=== PATIENT | female | born 1945 | race African-American/Black ===

== ENCOUNTER 2021-03-13 18:36 | Inpatient (IN) | payer BC, MEDICARE ==
[~2021-03-13] VITALS: Ht 161.3 cm; Wt 49.9 kg
[~2021-03-13 18:36] MED LIST: ALPR0.5T6 PO; AMOX1TAB10 PO; BUDE0.5A NEB; GABA600T7 PO; IPRA3AMP29 NEB; OXYC1TAB22 PO; PRED-220 PO; gabapentin PO; percocet; xanax
--- NOTE | 2021-03-13 18:51 | PHYS DOC ---
Past Medical History Past Medical History: Arthritis Past Surgical History: No Surgical History Smoking Status: Current Every Day Smoker Alcohol Use: None General Adult HPI: HPI: Patient is a 75 year old female with past medical history of COPD and neuropathy presents for evaluation of generalized weakness and altered mental status. Patient lives at home with her family. Patient's family called 911 due to patient's generalized weakness and altered mental status. Family states patient has been in bed all day. Upon EMS arrival patient was noted to have an oxygen saturation in the upper 60s. Patient arrived on 15 L nonrebreather with oxygen saturations of 100%. Patient is alert and in oriented to person and place. She is unaware of time and president. Patient has no complaints. She denies headache chest pain shortness of breath abdominal pain nausea vomiting. In ER patient was switched over to 2 L nasal cannula and still remains 100% on room air. During my exam patient does have mild coug but her lungs are clear bilateral and her heart is regular. EMS states patients house was a mess. The temperature in house exceeded 90 degrees. Patients Oxycodone pain medication bottle - filled on 03/09 with #60 tablets has only 3 tablets left. Review of Systems: Review of Systems: Constitutional: Denies fever or chills. [] Eyes: Denies change in visual acuity. [] HENT: Denies nasal congestion or sore throat. [] Respiratory: Denies cough or shortness of breath. [] Cardiovascular: Denies chest pain or edema. [] GI: Denies abdominal pain, nausea, vomiting, bloody stools or diarrhea. [] : Denies dysuria. [] Musculoskeletal: Denies back pain or joint pain. [] Integument: Denies rash. [] Neurologic: Denies headache, focal weakness or sensory changes. [] Endocrine: Denies polyuria or polydipsia. [] Lymphatic: Denies swollen glands. [] Psychiatric: Denies depression or anxiety. [] Patient with no complaints Positive ROS based upon EMS Positive hypoxia Positive generalized weakness Heart Score: C/O Chest Pain: N/A Risk Factors: Risk Factors: DM, Current or recent (<one month) smoker, HTN, HLP, family history of CAD, obesity. Risk Scores: Score 0 - 3: 2.5% MACE over next 6 weeks - Discharge Home Score 4 - 6: 20.3% MACE over next 6 weeks - Admit for Clinical Observation Score 7 - 10: 72.7% MACE over next 6 weeks - Early Invasive Strategies Allergies: Allergies: Allergies Coded Allergies Type Severity Reaction Last Updated Verified No Known Drug Allergies 09/13/19 No Physical Exam: PE: General: alert, no acute distress. Skin: warm, dry and intact, no erythema, no rash. HENT: bilateral external ears normal, oropharynx moist, nose normal. Head:: Normocephalic, atraumatic. Neck: Trachea midline. Eyes: EOMI, Normal conjunctiva, No drainage CARDIOVASCULAR: Regular rate and rhythm RESPIRATORY: No respiratory distress Back: Full range of motion. MUSCULOSKELETAL: Full range of motion of bilateral upper and lower extremities. GASTROINTESTINAL: Abdomen soft without rebound or guarding. NEUROLOGICAL: Alert and noted to person, place not time. No neurological deficits observed Psychiatric: Cooperative. Normal judgment EKG: EKG: [] Performed at 1928 Rate [address] elevation Nonspecific ST depression No acute GA Radiology/Procedures: Radiology/Procedures: [] Impression: Exam: Chest one view INDICATION: Hypoxia TECHNIQUE: Frontal view of the chest Comparisons: 09/21/2019 FINDINGS: The cardiomediastinal silhouette and pulmonary vessels are within normal limits. Extensive bilateral airspace disease greater in the right upper lung. No pleural effusion. IMPRESSION: Extensive bilateral airspace disease. Course & Med Decision Making: Course & Med Decision Making Pertinent Labs and Imaging studies reviewed. (See chart for details) [] Patient was evaluated for chief complaint. Work-up consisted of laboratory analysis radiologic imaging and EKG. Results reviewed. Patient noted to have several abnormal labs including a white blood cell count of 17, sodium of 118, creatinine 4.8, BNP greater than 35,000, and a CK greater than 1500, Patient chest x-ray diffuse bilateral infiltrates. Patient's rapid Covid negative. Treatment included supplemental oxygen NC, IV fluids, Rocephin and Zithromax. Patient admitted to the hospitalist with nephrology consult. Carmelita Disclaimer: Carmelita Disclaimer: This electronic medical record was generated, in whole or in part, using a voice recognition dictation system. Departure Departure Impression: Primary Impression: Pneumonia Additional Impressions: Acute renal failure Hyponatremia Disposition: ADMITTED INPATIENT Admitting Physician: ELIANE Condition: STABLE Referrals: ARAMIS CARLOS MD (PCP) SHREYAS CALLE DO Mar 13, 2021 18:51
[2021-03-13 19:13] LABS: BILIRUBIN,URINE SMALL (NEG); CLARITY,URINE CLOUDY; COLOR,URINE AMBER; NITRITE,URINE NEGATIVE (NEG); PROTEIN,URINE 30 mg/dL (NEG-TRACE); UROBILINOGEN,URINE 0.2 mg/dL (0.2 mg/dL)
[2021-03-13 19:19] LABS: AMORPHOUS SEDIMENT,UR PRESENT /HPF; BACTERIA,URINE 0 /HPF (0-FEW); GRANULAR CASTS,URINE FEW /HPF; HYALINE CASTS, URINE FEW /HPF; RBC,URINE RARE /HPF (0-2); WBC,URINE 0 /HPF (0-4)
[2021-03-13 19:23] LABS: BASO % 0 % (0-3); EOS % 0 % (0-3); HEMATOCRIT 33.7 % (36.0-47.0); HEMOGLOBIN 11.5 g/dL (12.0-15.5); LYMPH # 0.9 x10^3/uL (1.0-4.8); LYMPH % 5 % (24-48); MEAN CORPUSCULAR HEMOGLOBIN 30 pg (25-35); MEAN CORPUSCULAR HGB CONC 34 g/dL (31-37); MEAN CORPUSCULAR VOLUME 89 fL (79-100); MONO # 0.9 x10^3/uL (0.0-1.1); MONO % 5 % (0-9); NEUT # 15.3 x10^3/uL (1.8-7.7); NEUT % 89 % (31-73); PLATELET COUNT 334 x10^3/uL (140-400); RED BLOOD COUNT 3.81 x10^6/uL (3.50-5.40); RED CELL DISTRIBUTION WIDTH 14.4 % (11.5-14.5); WHITE BLOOD COUNT 17.2 x10^3/uL (4.0-11.0)
[2021-03-13 19:38] LABS: ACETAMIN < 2 mcg/ml (10-30)
[2021-03-13 19:41] LABS: ALBUMIN 2.7 g/dL (3.4-5.0); ALBUMIN/GLOBULIN RATIO 0.6 (1.0-1.7); CALCIUM 8.2 mg/dL (8.5-10.1); CREATININE 4.8 mg/dL (0.6-1.0); GFR 10.7; POTASSIUM 4.9 mmol/L (3.5-5.1); TOTAL BILIRUBIN 0.3 mg/dL (0.2-1.0); TOTAL PROTEIN 6.9 g/dL (6.4-8.2)
--- NOTE | 2021-03-13 19:43 | EKG ---
[facility] [address] [place] [address] Test Date: 2021-03-13 Test Time: 19:28:09 Pat Name: JANIYA NOE Department: Room: Gender: F [employer]: [id number] : 1945 Requested By: SHREYAS CALLE Order Number: [id number] Reading MD: Measurements Intervals [place] Rate: 70 P: -59 ND: 138 QRS: 56 QRSD: 100 T: 3 QT: 422 QTc: 459 Interpretive Statements SINUS RHYTHM INDETERMINATE AXIS T ABNORMALITY IN ANTERIOR LEADS NON SPECIFIC ST DEPRESSION ABNORMAL ECG RI6.02 Compared to ECG 03/13/2021 19:26:09 T-wave abnormality now present Right bundle-branch block no longer present ST (T wave) deviation still present
--- NOTE | 2021-03-13 19:47 | RAD ---
Exam: Chest one view INDICATION: Hypoxia TECHNIQUE: Frontal view of the chest Comparisons: 09/21/2019 FINDINGS: The cardiomediastinal silhouette and pulmonary vessels are within normal limits. Extensive bilateral airspace disease greater in the right upper lung. No pleural effusion. IMPRESSION: Extensive bilateral airspace disease. Electronically signed by: Chandrika Cuba MD (03/13/2021 7:45 PM) [facility]
[2021-03-13 19:53] LABS: % BANDS 27 % (0-9); % LYMPHS 7 % (24-48); % MONOS 2 % (0-10); % SEGS 64 % (35-66); PLT ESTIMATE ADEQUATE (ADEQUATE); TOXIC GRANULATION SLIGHT; TOXIC VACUOLATION SLIGHT
[2021-03-13] MEDS ORDERED: ACETAMINOPHEN 325 MG TABLET. PO PRN (20:15)
[2021-03-13] MEDS ORDERED: ONDANSETRON PF 4 MG/2 ML VIAL. IVP PRN (20:15)
[2021-03-13] MEDS ORDERED: IV NORMAL SALINE 1000ML BAG 1,000 ML IV ONE (20:15)
[2021-03-13] MEDS ORDERED: AZITHRMYCN 500MG IVPB FOR OMNI 250 ML IV ONE (20:30)
[2021-03-13] MEDS ORDERED: cefTRIAXone IV Push 1 GM VIAL. IVP ONE (20:30)
[2021-03-13 21:40] VITALS: BP 96/41
[2021-03-14 03:00] VITALS: BP 92/41
[2021-03-14 06:56] VITALS: BP 96/43
[2021-03-14] MEDS ORDERED: SENNOSIDES 8.6 MG TABLET PO PRN (09:00)
[2021-03-14] MEDS ORDERED: ONDANSETRON PF 4 MG/2 ML VIAL. IVP PRN (09:00)
[2021-03-14] MEDS ORDERED: PROCHLORPERAZINE 10 MG/2 ML VIAL. IV PRN (09:00)
[2021-03-14] MEDS ORDERED: DEXTROSE 50% 25 GM / 50ML DISP.SYRIN. IV PRN (09:00)
--- NOTE | 2021-03-14 09:02 | PDOC1 ---
History and Physical Date of Service: DOS: DATE: 03/14/21 TIME: 08:37 Chief Complaint: Chief Complain: Generalized weakness History of Present Illness: HPI: 75 year old female with past medical history of COPD and neuropathy presents for evaluation of generalized weakness and altered mental status. Patient lives at home with her family. Patient's family called 911 due to patient's generalized weakness and altered mental status. Family states patient has been in bed all day. Upon EMS arrival patient was noted to have an oxygen saturation in the upper 60s. Patient arrived on 15 L nonrebreather with oxygen saturations of 100%. Patient is alert and in oriented to person and place. She is unaware of time and president. Patient has no complaints. She denies headache chest pain shortness of breath abdominal pain nausea vomiting. In ER patient was switched over to 2 L nasal cannula and still remains 100% on room air. During my exam patient does have mild coug but her lungs are clear bilateral and her heart is regular. EMS states patients house was a mess. The temperature in house exceeded 90 degrees. Patients Oxycodone pain medication bottle - filled on 03/09 with #60 tablets has only 3 tablets left. Past Medical/Surgical History: PMH/PSH: Past Medical History: Arthritis Past Surgical History: No Surgical History Allergies: Allergies: Coded Allergies: No Known Drug Allergies (Unverified , 03/13/21) Family History: Family History: Reviewed with no relevant findings Social History: Social History: Smoking Status: Current Every Day Smoker Alcohol Use: None Current Medications: Current Medications Current Medications Sodium Chloride 1,000 ml @ 1,000 mls/hr 1X ONCE IV Last administered on 03/13/21at 20:00; Start 03/13/21 at 20:15; Stop 03/13/21 at 21:14; Status DC Ceftriaxone Sodium (Rocephin) 1 gm 1X ONCE IVP Last administered on 03/13/21at 21:16; Start 03/13/21 at 20:30; Stop 03/13/21 at 20:31; Status DC Azithromycin 250 ml @ 250 mls/hr 1X ONCE IV Last administered on 03/13/21at 20:30; Start 03/13/21 at 20:30; Stop 03/13/21 at 21:29; Status DC Ondansetron HCl (Zofran) 4 mg PRN Q8HRS PRN IVP NAUSEA/VOMITING; Start 03/13/21 at 20:15; Stop 03/14/21 at 20:14 Acetaminophen (Tylenol) 650 mg PRN Q4HRS PRN PO FEVER > 100.3'F; Start 03/13/21 at 20:15; Stop 03/14/21 at 20:14 Active Scripts Active Prednisone (Prednisone) 10 Mg Tablet 3 Tab PO DAILY 5 Days Duoneb 0.5-3(2.5) Mg/3 Ml (Albuterol/Ipratropium) 3 Ml Ampul.neb 3 Ml NEB Q4HRS 30 Days Budesonide 0.5 Mg/2 Ml Ampul.neb 0.5 Mg NEB RTBID 30 Days Amox Tr-K Clv 500-125 Mg Tab (Amoxicillin/Potassium Clav) 1 Each Tablet 1 Tab PO BID 5 Days Reported Percocet 10-325 Mg Tablet (Oxycodone/Acetaminophen) 1 Each Tablet 1 Tab PO PRN Q4-6HRS PRN MDD 6 Tablet(s) 5 Days Alprazolam 0.5 Mg Tablet 1 Tab PO DAILY PRN Gabapentin 600 Mg Tablet 600 Mg PO TID ROS: Review of Systems Review of System Unable to obtain due to altered mental status Physical Exam: Vital Signs: Vital Signs Date Time Temp Pulse Resp B/P (MAP) Pulse Ox O2 Delivery O2 Flow Rate FiO2 03/14/21 06:56 98.8 73 16 96/43 (60) 90 Nasal Cannula 4.0 98.8 Physcial Exam: General: Well developed, well nourished, no acute distress, well appearing HEENT: Pupils equally round and reactive to light, EOMI, no discharge, normal conjunctiva Neck: Supple, no nuchal rigidity, no JVD, trachea midline, no tenderness Cardiac: RRR, no murmurs, no gallops, no rubs Chest/Lungs: CTAB, no wheeze, no rhonchi, no crackles Abdomen: soft, non-distended, no guarding, no peritoneal signs, non-tender Back: No tenderness Extremities: no edema, pulses intact, non-tender,capillary refill <3 sec bilateral upper and lower extremities, Neuro: Alert and oriented x 4, no focal deficits, normal speech Labs: Labs: Laboratory Tests Test 03/13/21 17:30 03/13/21 19:00 03/13/21 19:15 03/14/21 04:20 SARS-CoV-2 RNA (SOLE) Negative (Negative) SARS-CoV-2 Antigen (Rapid) Negative (NEGATIVE) Urine Collection Type U cath Urine Color Jeimy Urine Clarity Cloudy Urine pH 5.0 (<5.0-8.0) Urine Specific Nordman 1.020 (1.000-1.030) Urine Protein 30 mg/dL (NEG-TRACE) Urine Glucose (UA) Negative mg/dL (NEG) Urine Ketones (Stick) Negative mg/dL (NEG) Urine Blood Small (NEG) Urine Nitrite Negative (NEG) Urine Bilirubin Small (NEG) Urine Urobilinogen Dipstick 0.2 mg/dL (0.2 mg/dL) Urine Leukocyte Esterase Negative (NEG) Urine RBC Rare /HPF (0-2) Urine WBC 0 /HPF (0-4) Urine Squamous Epithelial Cells Occ /LPF Urine Amorphous Sediment Present /HPF Urine Bacteria 0 /HPF (0-FEW) Urine Hyaline Casts Few /HPF Urine Granular Casts Few /HPF Urine Mucus Mod /LPF White Blood Count 17.2 x10^3/uL (4.0-11.0) Red Blood Count 3.81 x10^6/uL (3.50-5.40) Hemoglobin 11.5 g/dL (12.0-15.5) Hematocrit 33.7 % (36.0-47.0) Mean Corpuscular Volume 89 fL (79-100) Mean Corpuscular Hemoglobin 30 pg (25-35) Mean Corpuscular Hemoglobin Concent 34 g/dL (31-37) Red Cell Distribution Width 14.4 % (11.5-14.5) Platelet Count 334 x10^3/uL (140-400) Neutrophils (%) (Auto) 89 % (31-73) Lymphocytes (%) (Auto) 5 % (24-48) Monocytes (%) (Auto) 5 % (0-9) Eosinophils (%) (Auto) 0 % (0-3) Basophils (%) (Auto) 0 % (0-3) Neutrophils # (Auto) 15.3 x10^3/uL (1.8-7.7) Lymphocytes # (Auto) 0.9 x10^3/uL (1.0-4.8) Monocytes # (Auto) 0.9 x10^3/uL (0.0-1.1) Eosinophils # (Auto) 0.0 x10^3/uL (0.0-0.7) Basophils # (Auto) 0.0 x10^3/uL (0.0-0.2) Segmented Neutrophils % 64 % (35-66) Band Neutrophils % 27 % (0-9) Lymphocytes % 7 % (24-48) Monocytes % 2 % (0-10) Toxic Granulation Slight Toxic Vacuolation Slight Platelet Estimate Adequate (ADEQUATE) Sodium Level 118 mmol/L (136-145) Potassium Level 4.9 mmol/L (3.5-5.1) Chloride Level 81 mmol/L (98-107) Carbon Dioxide Level 28 mmol/L (21-32) Anion Gap 9 (6-14) Blood Urea Nitrogen 76 mg/dL (7-20) Creatinine 4.8 mg/dL (0.6-1.0) Estimated GFR (Cockcroft-Gault) 10.7 BUN/Creatinine Ratio 16 (6-20) Glucose Level 93 mg/dL (70-99) Calcium Level 8.2 mg/dL (8.5-10.1) Total Bilirubin 0.3 mg/dL (0.2-1.0) Aspartate Amino Transf (AST/SGOT) 81 U/L (15-37) Alanine Aminotransferase (ALT/SGPT) 28 U/L (14-59) Alkaline Phosphatase 101 U/L (46-116) Creatine Kinase 1571 U/L (26-192) Troponin I Quantitative 0.049 ng/mL (0.000-0.055) 0.055 ng/mL (0.000-0.055) TD-Dkb-A-Type Natriuretic Peptide > 79093 pg/mL (0-449) Total Protein 6.9 g/dL (6.4-8.2) Albumin 2.7 g/dL (3.4-5.0) Albumin/Globulin Ratio 0.6 (1.0-1.7) Acetaminophen Level < 2 mcg/ml (10-30) Acetaminophen Last Dose Date Unknown Acetaminophen Last Dose Time Unknown Lactic Acid Level 0.5 mmol/L (0.4-2.0) Laboratory Tests Test 03/13/21 17:30 03/13/21 19:00 03/13/21 19:15 03/14/21 04:20 SARS-CoV-2 RNA (SOLE) Negative (Negative) SARS-CoV-2 Antigen (Rapid) Negative (NEGATIVE) Urine Collection Type U cath Urine Color Jeimy Urine Clarity Cloudy Urine pH 5.0 (<5.0-8.0) Urine Specific Nordman 1.020 (1.000-1.030) Urine Protein 30 mg/dL (NEG-TRACE) Urine Glucose (UA) Negative mg/dL (NEG) Urine Ketones (Stick) Negative mg/dL (NEG) Urine Blood Small (NEG) Urine Nitrite Negative (NEG) Urine Bilirubin Small (NEG) Urine Urobilinogen Dipstick 0.2 mg/dL (0.2 mg/dL) Urine Leukocyte Esterase Negative (NEG) Urine RBC Rare /HPF (0-2) Urine WBC 0 /HPF (0-4) Urine Squamous Epithelial Cells Occ /LPF Urine Amorphous Sediment Present /HPF Urine Bacteria 0 /HPF (0-FEW) Urine Hyaline Casts Few /HPF Urine Granular Casts Few /HPF Urine Mucus Mod /LPF White Blood Count 17.2 x10^3/uL (4.0-11.0) Red Blood Count 3.81 x10^6/uL (3.50-5.40) Hemoglobin 11.5 g/dL (12.0-15.5) Hematocrit 33.7 % (36.0-47.0) Mean Corpuscular Volume 89 fL (79-100) Mean Corpuscular Hemoglobin 30 pg (25-35) Mean Corpuscular Hemoglobin Concent 34 g/dL (31-37) Red Cell Distribution Width 14.4 % (11.5-14.5) Platelet Count 334 x10^3/uL (140-400) Neutrophils (%) (Auto) 89 % (31-73) Lymphocytes (%) (Auto) 5 % (24-48) Monocytes (%) (Auto) 5 % (0-9) Eosinophils (%) (Auto) 0 % (0-3) Basophils (%) (Auto) 0 % (0-3) Neutrophils # (Auto) 15.3 x10^3/uL (1.8-7.7) Lymphocytes # (Auto) 0.9 x10^3/uL (1.0-4.8) Monocytes # (Auto) 0.9 x10^3/uL (0.0-1.1) Eosinophils # (Auto) 0.0 x10^3/uL (0.0-0.7) Basophils # (Auto) 0.0 x10^3/uL (0.0-0.2) Segmented Neutrophils % 64 % (35-66) Band Neutrophils % 27 % (0-9) Lymphocytes % 7 % (24-48) Monocytes % 2 % (0-10) Toxic Granulation Slight Toxic Vacuolation Slight Platelet Estimate Adequate (ADEQUATE) Sodium Level 118 mmol/L (136-145) Potassium Level 4.9 mmol/L (3.5-5.1) Chloride Level 81 mmol/L (98-107) Carbon Dioxide Level 28 mmol/L (21-32) Anion Gap 9 (6-14) Blood Urea Nitrogen 76 mg/dL (7-20) Creatinine 4.8 mg/dL (0.6-1.0) Estimated GFR (Cockcroft-Gault) 10.7 BUN/Creatinine Ratio 16 (6-20) Glucose Level 93 mg/dL (70-99) Calcium Level 8.2 mg/dL (8.5-10.1) Total Bilirubin 0.3 mg/dL (0.2-1.0) Aspartate Amino Transf (AST/SGOT) 81 U/L (15-37) Alanine Aminotransferase (ALT/SGPT) 28 U/L (14-59) Alkaline Phosphatase 101 U/L (46-116) Creatine Kinase 1571 U/L (26-192) Troponin I Quantitative 0.049 ng/mL (0.000-0.055) 0.055 ng/mL (0.000-0.055) JZ-Yco-V-Type Natriuretic Peptide > 67413 pg/mL (0-449) Total Protein 6.9 g/dL (6.4-8.2) Albumin 2.7 g/dL (3.4-5.0) Albumin/Globulin Ratio 0.6 (1.0-1.7) Acetaminophen Level < 2 mcg/ml (10-30) Acetaminophen Last Dose Date Unknown Acetaminophen Last Dose Time Unknown Lactic Acid Level 0.5 mmol/L (0.4-2.0) Images: Images PROCEDURE: CHEST AP ONLY Exam: Chest one view INDICATION: Hypoxia TECHNIQUE: Frontal view of the chest Comparisons: 09/21/2019 FINDINGS: The cardiomediastinal silhouette and pulmonary vessels are within normal limits. Extensive bilateral airspace disease greater in the right upper lung. No pleural effusion. IMPRESSION: Extensive bilateral airspace disease. Assessment/Plan Assessment/Plan Acute metabolic and infectious encephalopathy Atypical bilateral pneumonia, possible gram-negative organisms, possible aspiration pneumonia Elevated BNP suggestive of volume overload Acute electrolyte derangementhyponatremia, hypochloremia OBEY due to vasomotor nephropathy Severe symptomatic hyponatremia suggestive of low solute intake Elevated creatinine kinase due to rhabdomyolysis Bedbound status Severe protein malnutrition Elevated AST ALT ratio Admit to hospital service for further management Pending FeNa calculation for volume depletion Pending TSH, B12, folate levels Pending urine toxic drug screen Dementia prevention protocol Continue empiric IV antibiotics Pending blood cultures Pending MRSA screen and Legionella urine antigen Nephrology consult Strict I's and O's Avoid nephrotoxic agents Continue judicious IV NS replacement to increase sodium between 4 to 8 mEq in the next 24 hours Trend creatinine levels for the next 24 hours Monitor urine output PT OT evaluation IV Haldol as needed for agitation, consider sitter as needed if non-redirectable agitation Avoid physical restraints, catheters or tubes, and benzodiazepines Nutrition consult if there is malnutrition or concern for vitamin deficiencies Heparin for DVT prophylaxis N.p.o. if altered mental status Full code Discussed with RN and SW Dispo inpatient management as above In addition to my E/M visit, advance care planning done with A total time of 20 minutes was spent from 1040 to 11:00 face to face in discussion with the patient regarding their goals of care, CODE STATUS. A total of 55 minutes of critical care time was spent in reviewing chart, labs, and images. Discussed with RN and SW. Justifications for Admission Other Justification VANDANA WILLIS MD Mar 14, 2021 09:02
[2021-03-14 09:41] LABS: BASO % 0 % (0-3); EOS % 0 % (0-3); HEMATOCRIT 29.8 % (36.0-47.0); HEMOGLOBIN 10.1 g/dL (12.0-15.5); LYMPH # 1.1 x10^3/uL (1.0-4.8); LYMPH % 8 % (24-48); MEAN CORPUSCULAR HEMOGLOBIN 30 pg (25-35); MEAN CORPUSCULAR HGB CONC 34 g/dL (31-37); MEAN CORPUSCULAR VOLUME 89 fL (79-100); MONO # 0.7 x10^3/uL (0.0-1.1); MONO % 5 % (0-9); NEUT % 87 % (31-73); PLATELET COUNT 340 x10^3/uL (140-400); RED BLOOD COUNT 3.34 x10^6/uL (3.50-5.40); RED CELL DISTRIBUTION WIDTH 14.4 % (11.5-14.5); WHITE BLOOD COUNT 14.9 x10^3/uL (4.0-11.0)
[2021-03-14 09:42] LABS: ALBUMIN 2.3 g/dL (3.4-5.0); ALBUMIN/GLOBULIN RATIO 0.6 (1.0-1.7); CALCIUM 7.3 mg/dL (8.5-10.1); CREATININE 3.6 mg/dL (0.6-1.0); GFR 14.9; PHOSPHORUS 7.8 mg/dL (2.6-4.7); POTASSIUM 4.6 mmol/L (3.5-5.1); TOTAL BILIRUBIN 0.2 mg/dL (0.2-1.0)
[2021-03-14] MEDS: IV NORMAL SALINE 1000ML BAG 1,000 ML IV SCH ×2 (09:46→19:00)
[2021-03-14] MEDS: HEPARIN for SUB-Q USE 5,000 UNIT/ML VIAL. SQ SCH ×2 (09:47→21:23)
[2021-03-14 11:08] VITALS: BP 92/46
--- NOTE | 2021-03-14 11:23 | PDOC2 ---
CONSULT Date of Consult Date of Consult DATE: 03/14/21 TIME: 11:11 Reason for Consult Reason for Consult: LOW NA AND OBEY Referring Physician Referring Physician: ALBA Identification/Chief Complaint Chief Complaint CONFUSION Source Source: Chart review History of Present Illness Reason for Visit: THIS IS A 75 YR OLD WITH CONFUSION AND GENERALIZED WEAKNESS. FAMILY CALL 911. HYPOXIC ON ARRIVAL IN THE ER. ALSO NOTED TO HAVE A NA OF 119 AND A CR OF 4.8. NO CKD HX AND NO PRIOR HX OF ANY LOW NA. NO HX OF ANY REPORTED HX. NO NEPHROTOXINS OR HEMODYNAMIC INSTABILITY. CURRENTLY PUI FOR COVID 19. HAS A HX OF COPD. SHE HAS LEUCOCYTOSIS AND CHEST IMAGING SHOWING BILATERAL INFILTRATES. UA NEG EXCEPT FOR TRACE PROTEINURIA AND HEMATURIA. CPK IS ELEVATED IS BNP Past Medical History Cardiovascular: CHF Pulmonary: COPD ENT: No pertinent hx Renal/: No pertinent hx Family History Family History: Hypertension Social History No ALCOHOL: none Drugs: None Lives: with Family Current Problem List Problem List Problems Medical Problems: (1) Acute renal failure Status: Acute (2) Hyponatremia Status: Acute (3) Pneumonia Status: Acute Current Medications Current Medications Current Medications Sodium Chloride 1,000 ml @ 1,000 mls/hr 1X ONCE IV Last administered on 03/13/21at 20:00; Start 03/13/21 at 20:15; Stop 03/13/21 at 21:14; Status DC Ceftriaxone Sodium (Rocephin) 1 gm 1X ONCE IVP Last administered on 03/13/21at 21:16; Start 03/13/21 at 20:30; Stop 03/13/21 at 20:31; Status DC Azithromycin 250 ml @ 250 mls/hr 1X ONCE IV Last administered on 03/13/21at 20:30; Start 03/13/21 at 20:30; Stop 03/13/21 at 21:29; Status DC Ondansetron HCl (Zofran) 4 mg PRN Q8HRS PRN IVP NAUSEA/VOMITING; Start 03/13/21 at 20:15; Stop 03/14/21 at 20:14 Acetaminophen (Tylenol) 650 mg PRN Q4HRS PRN PO FEVER > 100.3'F; Start 03/13/21 at 20:15; Stop 03/14/21 at 20:14 Sennosides (Senna) 17.2 mg PRN BID PRN PO CONSTIPATION; Start 03/14/21 at 09:00 Docusate Sodium (Colace) 100 mg PRN DAILY PRN PO HARD STOOLS; Start 03/14/21 at 09:00 Ondansetron HCl (Zofran) 4 mg PRN Q6HRS PRN IVP NAUSEA/VOMITING; Start 03/14/21 at 09:00 Dextrose (Dextrose 50%-Water Syringe) 12.5 gm PRN Q15MIN PRN IV SEE COMMENTS; Start 03/14/21 at 09:00 Sodium Chloride 1,000 ml @ 100 mls/hr Q10H IV Last administered on 03/14/21at 09:46; Start 03/14/21 at 09:00 Acetaminophen (Tylenol) 650 mg PRN Q4HRS PRN PO TEMP OVER 100.4F OR MILD PAIN; Start 03/14/21 at 09:00 Heparin Sodium (Porcine) (Heparin Sodium) 5,000 unit Q12HR SQ Last administered on 03/14/21at 09:47; Start 03/14/21 at 09:00 Azithromycin 500 mg/Sodium Chloride 250 ml @ 250 mls/hr Q24H IV ; Start 03/14/21 at 20:00 Ceftriaxone Sodium (Rocephin) 1 gm Q24H IVP ; Start 03/14/21 at 21:00 Prochlorperazine Edisylate (Compazine) 10 mg PRN Q6HRS PRN IV NAUSEA/VOMITING- 2ND CHOICE; Start 03/14/21 at 09:00 Active Scripts Active Prednisone (Prednisone) 10 Mg Tablet 3 Tab PO DAILY 5 Days Duoneb 0.5-3(2.5) Mg/3 Ml (Albuterol/Ipratropium) 3 Ml Ampul.neb 3 Ml NEB Q4HRS 30 Days Budesonide 0.5 Mg/2 Ml Ampul.neb 0.5 Mg NEB RTBID 30 Days Amox Tr-K Clv 500-125 Mg Tab (Amoxicillin/Potassium Clav) 1 Each Tablet 1 Tab PO BID 5 Days Reported Percocet 10-325 Mg Tablet (Oxycodone/Acetaminophen) 1 Each Tablet 1 Tab PO PRN Q4-6HRS PRN MDD 6 Tablet(s) 5 Days Alprazolam 0.5 Mg Tablet 1 Tab PO DAILY PRN Gabapentin 600 Mg Tablet 600 Mg PO TID Allergies Allergies: Coded Allergies: No Known Drug Allergies (Unverified , 03/13/21) ROS Review of System UNABLE TO OBTAIN DUE TO CONFUSION Physical Exam General: Alert, Cooperative, mild distress HEENT: Atraumatic, PERRLA Lungs: Other (DECREASD AT BASES) Heart: Regular rate Abdomen: Normal bowel sounds, Soft, No tenderness Extremities: No cyanosis Skin: No breakdown Neuro: Other (CONFUSED, NO ASYMMETRY) Psych/Mental Status: Other (CONFUSED, FLAT AFFECT) MUSCULOSKELETAL: No joint tenderness, No deformity Vitals VITALS Vital Signs Date Time Temp Pulse Resp B/P (MAP) Pulse Ox O2 Delivery O2 Flow Rate FiO2 03/14/21 11:08 98.6 75 18 92/46 (61) 95 Nasal Cannula 4.0 98.6 Labs Labs Laboratory Tests Test 03/13/21 17:30 03/13/21 19:00 03/13/21 19:15 03/14/21 04:20 SARS-CoV-2 RNA (SOLE) Negative (Negative) SARS-CoV-2 Antigen (Rapid) Negative (NEGATIVE) Urine Collection Type U cath Urine Color Jeimy Urine Clarity Cloudy Urine pH 5.0 (<5.0-8.0) Urine Specific [place] 1.020 (1.000-1.030) Urine Protein 30 mg/dL (NEG-TRACE) Urine Glucose (UA) Negative mg/dL (NEG) Urine Ketones (Stick) Negative mg/dL (NEG) Urine Blood Small (NEG) Urine Nitrite Negative (NEG) Urine Bilirubin Small (NEG) Urine Urobilinogen Dipstick 0.2 mg/dL (0.2 mg/dL) Urine Leukocyte Esterase Negative (NEG) Urine RBC Rare /HPF (0-2) Urine WBC 0 /HPF (0-4) Urine Squamous Epithelial Cells Occ /LPF Urine Amorphous Sediment Present /HPF Urine Bacteria 0 /HPF (0-FEW) Urine Hyaline Casts Few /HPF Urine Granular Casts Few /HPF Urine Mucus Mod /LPF White Blood Count 17.2 x10^3/uL (4.0-11.0) 14.9 x10^3/uL (4.0-11.0) Red Blood Count 3.81 x10^6/uL (3.50-5.40) 3.34 x10^6/uL (3.50-5.40) Hemoglobin 11.5 g/dL (12.0-15.5) 10.1 g/dL (12.0-15.5) Hematocrit 33.7 % (36.0-47.0) 29.8 % (36.0-47.0) Mean Corpuscular Volume 89 fL (79-100) 89 fL (79-100) Mean Corpuscular Hemoglobin 30 pg (25-35) 30 pg (25-35) Mean Corpuscular Hemoglobin Concent 34 g/dL (31-37) 34 g/dL (31-37) Red Cell Distribution Width 14.4 % (11.5-14.5) 14.4 % (11.5-14.5) Platelet Count 334 x10^3/uL (140-400) 340 x10^3/uL (140-400) Neutrophils (%) (Auto) 89 % (31-73) 87 % (31-73) Lymphocytes (%) (Auto) 5 % (24-48) 8 % (24-48) Monocytes (%) (Auto) 5 % (0-9) 5 % (0-9) Eosinophils (%) (Auto) 0 % (0-3) 0 % (0-3) Basophils (%) (Auto) 0 % (0-3) 0 % (0-3) Neutrophils # (Auto) 15.3 x10^3/uL (1.8-7.7) 13.0 x10^3/uL (1.8-7.7) Lymphocytes # (Auto) 0.9 x10^3/uL (1.0-4.8) 1.1 x10^3/uL (1.0-4.8) Monocytes # (Auto) 0.9 x10^3/uL (0.0-1.1) 0.7 x10^3/uL (0.0-1.1) Eosinophils # (Auto) 0.0 x10^3/uL (0.0-0.7) 0.0 x10^3/uL (0.0-0.7) Basophils # (Auto) 0.0 x10^3/uL (0.0-0.2) 0.0 x10^3/uL (0.0-0.2) Segmented Neutrophils % 64 % (35-66) Band Neutrophils % 27 % (0-9) Lymphocytes % 7 % (24-48) Monocytes % 2 % (0-10) Toxic Granulation Slight Toxic Vacuolation Slight Platelet Estimate Adequate (ADEQUATE) Sodium Level 118 mmol/L (136-145) 121 mmol/L (136-145) Potassium Level 4.9 mmol/L (3.5-5.1) 4.6 mmol/L (3.5-5.1) Chloride Level 81 mmol/L (98-107) 86 mmol/L (98-107) Carbon Dioxide Level 28 mmol/L (21-32) 23 mmol/L (21-32) Anion Gap 9 (6-14) 12 (6-14) Blood Urea Nitrogen 76 mg/dL (7-20) 73 mg/dL (7-20) Creatinine 4.8 mg/dL (0.6-1.0) 3.6 mg/dL (0.6-1.0) Estimated GFR (Cockcroft-Gault) 10.7 14.9 BUN/Creatinine Ratio 16 (6-20) 20 (6-20) Glucose Level 93 mg/dL (70-99) 60 mg/dL (70-99) Calcium Level 8.2 mg/dL (8.5-10.1) 7.3 mg/dL (8.5-10.1) Total Bilirubin 0.3 mg/dL (0.2-1.0) 0.2 mg/dL (0.2-1.0) Aspartate Amino Transf (AST/SGOT) 81 U/L (15-37) 70 U/L (15-37) Alanine Aminotransferase (ALT/SGPT) 28 U/L (14-59) 24 U/L (14-59) Alkaline Phosphatase 101 U/L (46-116) 87 U/L (46-116) Creatine Kinase 1571 U/L (26-192) Troponin I Quantitative 0.049 ng/mL (0.000-0.055) 0.055 ng/mL (0.000-0.055) QU-Ksv-[id number]-Type Natriuretic Peptide > 20535 pg/mL (0-449) Total Protein 6.9 g/dL (6.4-8.2) 6.0 g/dL (6.4-8.2) Albumin 2.7 g/dL (3.4-5.0) 2.3 g/dL (3.4-5.0) Albumin/Globulin Ratio 0.6 (1.0-1.7) 0.6 (1.0-1.7) Acetaminophen Level < 2 mcg/ml (10-30) Acetaminophen Last Dose Date Unknown Acetaminophen Last Dose Time Unknown Lactic Acid Level 0.5 mmol/L (0.4-2.0) Phosphorus Level 7.8 mg/dL (2.6-4.7) Magnesium Level 3.0 mg/dL (1.8-2.4) Thyroid Stimulating Hormone (TSH) 0.268 uIU/mL (0.358-3.74) Laboratory Tests Test 03/13/21 17:30 03/13/21 19:00 03/13/21 19:15 03/14/21 04:20 SARS-CoV-2 RNA (SOLE) Negative (Negative) SARS-CoV-2 Antigen (Rapid) Negative (NEGATIVE) Urine Collection Type U cath Urine Color Jeimy Urine Clarity Cloudy Urine pH 5.0 (<5.0-8.0) Urine Specific [place] 1.020 (1.000-1.030) Urine Protein 30 mg/dL (NEG-TRACE) Urine Glucose (UA) Negative mg/dL (NEG) Urine Ketones (Stick) Negative mg/dL (NEG) Urine Blood Small (NEG) Urine Nitrite Negative (NEG) Urine Bilirubin Small (NEG) Urine Urobilinogen Dipstick 0.2 mg/dL (0.2 mg/dL) Urine Leukocyte Esterase Negative (NEG) Urine RBC Rare /HPF (0-2) Urine WBC 0 /HPF (0-4) Urine Squamous Epithelial Cells Occ /LPF Urine Amorphous Sediment Present /HPF Urine Bacteria 0 /HPF (0-FEW) Urine Hyaline Casts Few /HPF Urine Granular Casts Few /HPF Urine Mucus Mod /LPF White Blood Count 17.2 x10^3/uL (4.0-11.0) 14.9 x10^3/uL (4.0-11.0) Red Blood Count 3.81 x10^6/uL (3.50-5.40) 3.34 x10^6/uL (3.50-5.40) Hemoglobin 11.5 g/dL (12.0-15.5) 10.1 g/dL (12.0-15.5) Hematocrit 33.7 % (36.0-47.0) 29.8 % (36.0-47.0) Mean Corpuscular Volume 89 fL (79-100) 89 fL (79-100) Mean Corpuscular Hemoglobin 30 pg (25-35) 30 pg (25-35) Mean Corpuscular Hemoglobin Concent 34 g/dL (31-37) 34 g/dL (31-37) Red Cell Distribution Width 14.4 % (11.5-14.5) 14.4 % (11.5-14.5) Platelet Count 334 x10^3/uL (140-400) 340 x10^3/uL (140-400) Neutrophils (%) (Auto) 89 % (31-73) 87 % (31-73) Lymphocytes (%) (Auto) 5 % (24-48) 8 % (24-48) Monocytes (%) (Auto) 5 % (0-9) 5 % (0-9) Eosinophils (%) (Auto) 0 % (0-3) 0 % (0-3) Basophils (%) (Auto) 0 % (0-3) 0 % (0-3) Neutrophils # (Auto) 15.3 x10^3/uL (1.8-7.7) 13.0 x10^3/uL (1.8-7.7) Lymphocytes # (Auto) 0.9 x10^3/uL (1.0-4.8) 1.1 x10^3/uL (1.0-4.8) Monocytes # (Auto) 0.9 x10^3/uL (0.0-1.1) 0.7 x10^3/uL (0.0-1.1) Eosinophils # (Auto) 0.0 x10^3/uL (0.0-0.7) 0.0 x10^3/uL (0.0-0.7) Basophils # (Auto) 0.0 x10^3/uL (0.0-0.2) 0.0 x10^3/uL (0.0-0.2) Segmented Neutrophils % 64 % (35-66) Band Neutrophils % 27 % (0-9) Lymphocytes % 7 % (24-48) Monocytes % 2 % (0-10) Toxic Granulation Slight Toxic Vacuolation Slight Platelet Estimate Adequate (ADEQUATE) Sodium Level 118 mmol/L (136-145) 121 mmol/L (136-145) Potassium Level 4.9 mmol/L (3.5-5.1) 4.6 mmol/L (3.5-5.1) Chloride Level 81 mmol/L (98-107) 86 mmol/L (98-107) Carbon Dioxide Level 28 mmol/L (21-32) 23 mmol/L (21-32) Anion Gap 9 (6-14) 12 (6-14) Blood Urea Nitrogen 76 mg/dL (7-20) 73 mg/dL (7-20) Creatinine 4.8 mg/dL (0.6-1.0) 3.6 mg/dL (0.6-1.0) Estimated GFR (Cockcroft-Gault) 10.7 14.9 BUN/Creatinine Ratio 16 (6-20) 20 (6-20) Glucose Level 93 mg/dL (70-99) 60 mg/dL (70-99) Calcium Level 8.2 mg/dL (8.5-10.1) 7.3 mg/dL (8.5-10.1) Total Bilirubin 0.3 mg/dL (0.2-1.0) 0.2 mg/dL (0.2-1.0) Aspartate Amino Transf (AST/SGOT) 81 U/L (15-37) 70 U/L (15-37) Alanine Aminotransferase (ALT/SGPT) 28 U/L (14-59) 24 U/L (14-59) Alkaline Phosphatase 101 U/L (46-116) 87 U/L (46-116) Creatine Kinase 1571 U/L (26-192) Troponin I Quantitative 0.049 ng/mL (0.000-0.055) 0.055 ng/mL (0.000-0.055) KJ-Kxg-M-Type Natriuretic Peptide > 63169 pg/mL (0-449) Total Protein 6.9 g/dL (6.4-8.2) 6.0 g/dL (6.4-8.2) Albumin 2.7 g/dL (3.4-5.0) 2.3 g/dL (3.4-5.0) Albumin/Globulin Ratio 0.6 (1.0-1.7) 0.6 (1.0-1.7) Acetaminophen Level < 2 mcg/ml (10-30) Acetaminophen Last Dose Date Unknown Acetaminophen Last Dose Time Unknown Lactic Acid Level 0.5 mmol/L (0.4-2.0) Phosphorus Level 7.8 mg/dL (2.6-4.7) Magnesium Level 3.0 mg/dL (1.8-2.4) Thyroid Stimulating Hormone (TSH) 0.268 uIU/mL (0.358-3.74) Images Images Exam: Chest one view INDICATION: Hypoxia TECHNIQUE: Frontal view of the chest Comparisons: 09/21/2019 FINDINGS: The cardiomediastinal silhouette and pulmonary vessels are within normal limits. Extensive bilateral airspace disease greater in the right upper lung. No pleural effusion. IMPRESSION: Extensive bilateral airspace disease. 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
[2021-03-14 13:07] LABS: BARBITURATES NEG (NEG); BENZODIAZEPINES NEG (NEG); CANNABINOIDS NEG (NEG); COCAINE NEG (NEG); METHADONE NEG (NEG); OPIATES POS (NEG); PHENCYCLIDINE NEG (NEG)
[2021-03-14 13:08] LABS: AMPHETAMINE/METHAMPHETAMINE NEG (NEG)
--- NOTE | 2021-03-14 14:30 | RAD ---
EXAM: RENAL ULTRASOUND CLINICAL HISTORY: Acute kidney injury COMPARISON: None available. TECHNIQUE: Ultrasound examination of the bilateral kidneys and urinary bladder was performed. FINDINGS: The longitudinal and AP and transverse dimensions of the right kidney are 9.2 cm and 4.2 cm and 3.9 c m respectively. There is a cyst of the upper pole of the right kidney measuring 14 mm. This is an inc idental finding and no further follow-up is needed. The longitudinal and AP and transverse dimensions of the left kidney are 9.1 cm and 4.2 cm and 3.8 cm respectively. No hydronephrosis or renal mass or perinephric fluid collection is seen on either side. Urinary bladder is distended measuring 356 cc. No intraluminal echodensities or masses are seen. IMPRESSION: No hydronephrosis. Urinary bladder distention. Electronically signed by: Sean Atkins MD (03/14/2021 2:27 PM) [id number]
[2021-03-14 15:00] VITALS: BP 91/42
[2021-03-14 19:00] VITALS: BP 102/49
[2021-03-14] MEDS: AZITHROMYCIN 500 MG in IV NORMAL SALINE 250ML 250 ML IV SCH (21:24)
[2021-03-14] MEDS: cefTRIAXone IV Push 1 GM VIAL. IVP SCH (21:25)
[2021-03-14] MEDS: oxyCODONE/APAP 10/325 1 TAB TABLET PO PRN (21:32)
[2021-03-14 23:00] VITALS: BP 90/43
[2021-03-15 03:06] VITALS: BP 115/50
[2021-03-15 05:37] LABS: CALCIUM 7.8 mg/dL (8.5-10.1); CREATININE 1.5 mg/dL (0.6-1.0); MAGNESIUM 2.6 mg/dL (1.8-2.4); PHOSPHORUS 3.5 mg/dL (2.6-4.7); POTASSIUM 4.3 mmol/L (3.5-5.1)
[2021-03-15 06:34] VITALS: BP 107/43
[2021-03-15] MEDS: IV NORMAL SALINE 1000ML BAG 1,000 ML IV SCH ×2 (06:36→20:47)
[2021-03-15] MEDS: HEPARIN for SUB-Q USE 5,000 UNIT/ML VIAL. SQ SCH ×2 (09:46→21:03)
[2021-03-15] MEDS: oxyCODONE/APAP 10/325 1 TAB TABLET PO PRN ×2 (09:54→17:10)
--- NOTE | 2021-03-15 10:31 | PDOC ---
Renal-Progress Notes Subjective Notes Notes SOME CONFUSION History of Present Illness Hx of present illness STABLE Vitals Vitals Vital Signs Date Time Temp Pulse Resp B/P (MAP) Pulse Ox O2 Delivery O2 Flow Rate FiO2 03/15/21 09:54 Nasal Cannula 4.0 03/15/21 06:34 97.8 52 20 107/43 (64) 92 97.8 Weight Weight [ ] I.O. Intake and Output Intake and Output 03/15/21 07:00 Intake Total 470 ml Output Total 1300 ml Balance -830 ml Intake Oral 470 ml Output Urine Total 1300 ml # Voids 1 Labs Labs Laboratory Tests Test 03/14/21 12:30 03/14/21 12:35 03/14/21 16:15 03/14/21 19:45 Sodium Level 124 mmol/L (136-145) 128 mmol/L (136-145) 129 mmol/L (136-145) Creatine Kinase 1595 U/L (26-192) 1309 U/L (26-192) Vitamin B12 Level > 2000 pg/mL (247-911) 25-Hydroxy Vitamin D Total 45.3 ng/mL (30-100) Procalcitonin ng/mL (0.00-0.10) Urine Random Creatinine 89.9 mg/dL (Not Establ.) Urine Random Sodium <20 mmol/L (Not Estab.) Urine Opiates Screen Pos (NEG) Urine Methadone Screen Neg (NEG) Urine Barbiturates Neg (NEG) Urine Phencyclidine Screen Neg (NEG) Urine Amphetamine/Methamphetamine Neg (NEG) Urine Benzodiazepines Screen Neg (NEG) Urine Cocaine Screen Neg (NEG) Urine Cannabinoids Screen Neg (NEG) Urine Ethyl Alcohol Neg (NEG) Test 03/14/21 23:50 03/15/21 00:20 03/15/21 04:30 03/15/21 06:10 Sodium Level 129 mmol/L (136-145) 134 mmol/L (136-145) Creatine Kinase 1042 U/L (26-192) 972 U/L (26-192) Potassium Level 4.3 mmol/L (3.5-5.1) Chloride Level 97 mmol/L (98-107) Carbon Dioxide Level 25 mmol/L (21-32) Anion Gap 12 (6-14) Blood Urea Nitrogen 49 mg/dL (7-20) Creatinine 1.5 mg/dL (0.6-1.0) Estimated GFR (Cockcroft-Gault) 41.0 Glucose Level 74 mg/dL (70-99) Calcium Level 7.8 mg/dL (8.5-10.1) Phosphorus Level 3.5 mg/dL (2.6-4.7) Magnesium Level 2.6 mg/dL (1.8-2.4) Micro Micro Microbiology 03/14/21 Blood Culture - Preliminary, Resulted NO GROWTH AFTER 1 DAY Review of Systems Constitutional: yes: weakness, alert Ears/Nose/Throat: Yes: no symptom reported Eyes: Yes: no symptom reported Pulmonary: Yes no symptom reported Cardiovascular: Yes no symptom reported Gastrointestional: Yes: no symptom reported Genitourinary: Yes: no symptom reported Musculoskeletal: Yes: no symptom reported Skin: Yes no symptom reported Psychiatric/Neurological: Yes: confusion Endocrine: Yes: no symptom reported Physical Exam General Appearance: no apparent distress Skin: warm Respiratory: bilateral CTA Heart: S1S2 Abdomen: soft, bowel sounds present Genitourinary: bladder flat Extremities: pulses present Neurology: alert, confused Assessment Assessment IMP ENCEPHALOPATHY SEVERE HYPONATREMIA-NEARLY RESOLVED LEUCOCYTOSIS PNEUMONIA ACUTE HYPOXIC RESP FAILURE OBEY-ATN-CR OF 4.8-NO CKD-CR DOWN TO 1.5 URINARY RETENTION SUSPECT VOLUME DEPLETION CHRONICALLY ELEVATED BNP 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
[2021-03-15 11:30] VITALS: BP 98/50
--- NOTE | 2021-03-15 11:45 | PDOC ---
PROGRESS NOTES Date of Service: DATE: 03/15/21 TIME: 11:44 Chief Complaint Chief Complaint IMPRESSION: Extensive bilateral airspace disease. Assessment/Plan Assessment/Plan Acute metabolic and infectious encephalopathy Atypical bilateral pneumonia, possible gram-negative organisms, possible aspiration pneumonia /Extensive bilateral airspace disease. Elevated BNP suggestive of volume overload Acute electrolyte derangementhyponatremia, hypochloremia OBEY due to vasomotor nephropathy CR 4.8 ON ADMIT Severe symptomatic hyponatremia suggestive of low solute intake Elevated creatinine kinase due to rhabdomyolysis Bedbound status Severe protein malnutrition Elevated AST ALT ratio No hydronephrosis. Urinary bladder distention. plan Admit to hospital service Pending FeNa calculation for volume depletion Pending TSH, B12, folate levels urine toxic drug screen Dementia prevention protocol Continue empiric IV antibiotics Pending blood cultures Pending MRSA screen and Legionella urine antigen Nephrology consult Strict I's and O's Avoid nephrotoxic agents Continue judicious IV NS replacement to increase sodium between 4 to 8 mEq in the next 24 hours Trend creatinine levels for the next 24 hours Monitor urine output PT OT evaluation IV Haldol as needed for agitation, consider sitter as needed if non-redirectable agitation Avoid physical restraints, catheters or tubes, and benzodiazepines Nutrition consult if there is malnutrition or concern for vitamin deficiencies Diffuse pulmonary opacities, predominantly interstitial, likely due to a combination of chronic fibrosis and interstitial infiltrate, greatest at the lung bases. Some opacities have a slightly nodular morphology. short-term CT chest follow-up to document resolution. Calcified mass in the upper pole the right kidney, recommend further workup such as with MRI of the kidneys or multiphase CT of the kidneys. Heparin for DVT prophylaxis N.p.o. if altered mental status Full code Discussed with RN and SW Dispo inpatient management as above pulm consult History of Present Illness History of Present Illness Chief Complaint: Chief Complain: Generalized weakness History of Present Illness: HPI: 75 year old female with past medical history of COPD and neuropathy presents for evaluation of generalized weakness and altered mental status. Patient lives at home with her family. Patient's family called 911 due to patient's generalized weakness and altered mental status. Family states patient has been in bed all day. Upon EMS arrival patient was noted to have an oxygen saturation in the upper 60s. Patient arrived on 15 L nonrebreather with oxygen saturations of 100%. Patient is alert and in oriented to person and place. She is unaware of time and president. Patient has no complaints. She denies headache chest pain shortness of breath abdominal pain nausea vomiting. In ER patient was switched over to 2 L nasal cannula and still remains 100% on room air. During my exam patient does have mild coug but her lungs are clear bilateral and her heart is regular. EMS states patients house was a mess. The temperature in house exceeded 90 degrees. Patients Oxycodone pain medication bottle - filled on 03/09 with #60 tablets has only 3 tablets left. Past Medical/Surgical History: PMH/PSH: Past Medical History: Arthritis Past Surgical History: No Surgical History Allergies: Allergies: Coded Allergies: No Known Drug Allergies (Unverified , 03/13/21) Family History: Family History: Reviewed with no relevant findings Social History: Social History: Smoking Status: Current Every Day Smoker Alcohol Use: None Current Medications: Current Medications Current Medications Sodium Chloride 1,000 ml @ 1,000 mls/hr 1X ONCE IV Last administered on 03/13/21at 20:00; Start 03/13/21 at 20:15; Stop 03/13/21 at 21:14; Status DC Ceftriaxone Sodium (Rocephin) 1 gm 1X ONCE IVP Last administered on 03/13/21at 21:16; Start 03/13/21 at 20:30; Stop 03/13/21 at 20:31; Status DC Azithromycin 250 ml @ 250 mls/hr 1X ONCE IV Last administered on 03/13/21at 20:30; Start 03/13/21 at 20:30; Stop 03/13/21 at 21:29; Status DC Ondansetron HCl (Zofran) 4 mg PRN Q8HRS PRN IVP NAUSEA/VOMITING; Start 03/13/21 at 20:15; Stop 03/14/21 at 20:14 Acetaminophen (Tylenol) 650 mg PRN Q4HRS PRN PO FEVER > 100.3'F; Start 03/13/21 at 20:15; Stop 03/14/21 at 20:14 Active Scripts Active Prednisone (Prednisone) 10 Mg Tablet 3 Tab PO DAILY 5 Days Duoneb 0.5-3(2.5) Mg/3 Ml (Albuterol/Ipratropium) 3 Ml Ampul.neb 3 Ml NEB Q4HRS 30 Days Budesonide 0.5 Mg/2 Ml Ampul.neb 0.5 Mg NEB RTBID 30 Days Amox Tr-K Clv 500-125 Mg Tab (Amoxicillin/Potassium Clav) 1 Each Tablet 1 Tab PO BID 5 Days Reported Percocet 10-325 Mg Tablet (Oxycodone/Acetaminophen) 1 Each Tablet 1 Tab PO PRN Q4-6HRS PRN MDD 6 Tablet(s) 5 Days Alprazolam 0.5 Mg Tablet 1 Tab PO DAILY PRN Gabapentin 600 Mg Tablet 600 Mg PO TID ROS: Review of Systems Review of System Unable to obtain due to altered mental status 8-16 Acute metabolic and infectious encephalopathy Atypical bilateral pneumonia, possible gram-negative organisms, possible aspiration pneumonia /Extensive bilateral airspace disease. Elevated BNP suggestive of volume overload Acute electrolyte derangementhyponatremia, hypochloremia OBEY due to vasomotor nephropathy Severe symptomatic hyponatremia suggestive of low solute intake Elevated creatinine kinase due to rhabdomyolysis Bedbound status Severe protein malnutrition Elevated AST ALT ratio No hydronephrosis. Urinary bladder distention.FeNa calculation for volume depletion TSH, B12, folate levels Pending urine toxic drug screen Dementia prevention protocol Continue empiric IV antibiotics, zithromax, rocephin for now Pending blood cultures MRSA screen and Legionella urine antigen Nephrology consult Strict I's and O's Avoid nephrotoxic agents Continue judicious IV NS replacement to increase sodium between 4 to 8 mEq in the next 24 hours Trend creatinine levels for the next 24 hours Monitor urine output PT OT evaluation Mild to moderate chronic small vessel ischemic changes and atrophy. IV Haldol as needed for agitation, consider sitter as needed if non- redirectable agitation Avoid physical restraints, catheters or tubes, and benzodiazepines Nutrition consult if there is malnutrition or concern for vitamin deficiencies Diffuse pulmonary opacities, predominantly interstitial, likely due to a combination of chronic fibrosis and interstitial infiltrate, greatest at the lung bases. Some opacities have a slightly nodular morphology. short-term CT chest follow-up to document resolution. Calcified mass in the upper pole the right kidney, recommend further workup such as with MRI of the kidneys or multiphase CT of the kidneys. Heparin for DVT prophylaxis N.p.o. if altered mental status Full code Discussed with RN and SW Dispo inpatient management as above pulm consult, 4 liters o2 NC Oral residue is identified with puree and more so with solid forms of barium. This however clears with liquid barium. VIDEOSWALLOW IN AUG 2020 Vitals Vitals Vital Signs Date Time Temp Pulse Resp B/P (MAP) Pulse Ox O2 Delivery O2 Flow Rate FiO2 03/15/21 09:54 Nasal Cannula 4.0 03/15/21 06:34 97.8 52 20 107/43 (64) 92 97.8 Physical Exam General: Alert, Oriented X3, Cooperative, mild distress Heart: Regular rate, Normal S1, Normal S2 Lungs: Other Abdomen: Normal bowel sounds, Soft, No tenderness Extremities: No clubbing, No cyanosis Skin: No breakdown Labs LABS It helps to think and talk about your own wishes for healthcare in case youre ever not able to tell your loved ones or healthcare team what your wishes are. If you became really sick tomorrow, would your loved ones or healthcare team know what your wishes were? Here are some examples of different sets of goals and health care directives for your conversations: My wish is to use all medical therapies including resuscitation (such as CPR) and artificial life- sustaining treatments (such as machines and medicine) in an intensive care unit, to keep me alive if at all possible. My wish is to live as long as possible, but I dont want attempts to bring me back to life if my heart and breathing sto p. I would like full medical care but without using resuscitation or artificial life-sustaining intensive treatments, if these are unlikely to make me live longer or restore me to a certain quality of life. I will accept treatments that try to fix medical problems, but if Im not getting better or going to have a certain quality of life, I would want to switch to focusing only on my comfort and letting my happen naturally. My wish is for healthcare to focus on my comfort and lessen suffering. I would like medical care that focuses only on my quality of life and that allows me to naturally. Consider: What does a good quality of life mean for me? For many people, it is the ability to live independently and tell their own story. I may define it differently. Under what circumstances would I not want to be kept alive by medical treatments, resuscitation, or intensive care? What kind of changes to my health or life might make me change my mind? If I clearly am facing the last chapter of my l lico, how do I want the story to end? Who do I want to speak for me if I cant speak for myself? Do they understand my preferences? Are they willing to assume the role of my Durable Power of [employer] Production? Can I change my Goals of Care Designation? Yes, your Goals of Care Designation can be changed at any time. It should be reviewed if: your health condition changes your circumstances change (such as new understanding) you are transferred or admitted to another healthcare setting dpoa review, to pt portal 17 min and question review EC #: [id number] FRANCY: 03/14/21 STATUS: RES REQ #: [id number] RECD: 03/14/[address]: SHREYAS CALLE I DO SOURCE: BLOOD ENTR: 03/14/[address]: RODOLFO MCFARLANE MD SPDESC: ARAMIS CARLOS MD,VANDANA Bowles MD ORDERED: BCULT Procedure Result BLOOD CULTURE Preliminary NO GROWTH AFTER 1 DAY Aortic Valve AoV Peak Pantera. 104.0cm/s AoV VTI 15.7cm AO Peak GR. 4.3mmHg LVOT VTI 14.73cm AO Mean GR. 2mmHg TDI Lateral E' P. V 8.62cm/s Medial E' P. V 6.69cm/s Tricuspid Valve TR P. Velocity 285cm/s RAP ESTIMATE 3mmHg TR Peak Gr. 34mmHg RVSP 37mmHg Pulmonary Vein S1 Velocity 71.7cm/s S2 Velocity 57.67cm/s D2 Velocity 57.7cm/s PVa duration 92msec LEFT VENTRICLE The left ventricle is normal size. There is normal left ventricular wall thickness. The left ventricular systolic function is normal and the ejection fraction is within normal range. The Ejection Fraction is 50-55%. There is normal LV segmental wall motion. Diastology indeterminate. RIGHT VENTRICLE The right ventricle is normal size. There is normal right ventricular wall thickness. The right ventricular systolic function is normal. ATRIA The left atrium size is normal. The right atrium size is normal. The interatrial septum is intact with no evidence for an atrial septal defect or patent foramen ovale as noted on 2-D or Doppler imaging. AORTIC VALVE The aortic valve is thickened but opens well. Doppler and Color Flow revealed no significant aortic regurgitation. There is no significant aortic valvular stenosis. MITRAL VALVE The mitral valve is normal in structure and function. There is no evidence of mitral valve prolapse. There is no mitral valve stenosis. Doppler and Color Flow revealed no mitral valve regurgitation noted. TRICUSPID VALVE The tricuspid valve is normal in structure and function. Doppler and Color Flow revealed trace tricuspid regurgitation with an estimated PAP of 37 mmHg. There is no tricuspid valve stenosis. PULMONIC VALVE The pulmonic valve is not well visualized. Doppler and Color Flow revealed no pulmonic valvular regurgitation. GREAT VESSELS The aortic root is normal in size. The ascending aorta is normal in size. The IVC is normal in size and collapses >50% with inspiration. PERICARDIAL EFFUSION There is no evidence of significant pericardial effusion. Critical Notification Critical Value: No <Conclusion> The left ventricle is normal size. The left ventricular systolic function is normal and the ejection fraction is within normal range. The Ejection Fraction is 50-55%. Doppler and Color Flow revealed no significant aortic regurgitation. There is no significant aortic valvular stenosis. Doppler and Color Flow revealed no mitral valve regurgitation noted. Doppler and Color Flow revealed trace tricuspid regurgitation with an estimated PAP of 37 mmHg. Signed by : Guillermo Middleton MD Electronically Approved : 09/20/2019 16:51:53 Examination: VIDEO SWALLOW STUDY History: New onset shortness of breath and wheezing Comparison/Correlation: None Findings: Video swallow was performed utilizing thin liquid, puree, and solid food forms of barium. Oropharyngeal motility is grossly unremarkable although there is reduced tongue base retraction. There is oral residue with pureed and more so with solid food with barium. This clears with liquid barium. No significant vallecular or piriform sinus residuals. Shallow laryngeal penetration present with thin liquid and solid forms of barium. No substances reached the vocal cords. Significant thyroid cartilage calcification may limit assessment. Impression: No aspiration identified. Oral residue is identified with puree and more so with solid forms of barium. This however clears with liquid barium. Electronically signed by: Isaiah Mckeon MD (09/19/2019 3:48 PM) [id number] DICTATED and SIGNED BY: ISAIAH MCKEON MD DATE: 09/19/[address] CHEST WO CONTRAST Indication: Persistent infiltrates. Exposure: One or more of the following individualized dose reduction techniques were utilized for this examination: 1. Automated exposure control 2. Adjustment of the mA and/or kV according to patient size 3. Use of iterative reconstruction technique. Technique: Standard imaging without intravenous contrast. Comparison: None, correlation with chest x-ray of prior day. FINDINGS: Aorta is calcified, without aneurysm. Vascular exam otherwise limited on noncontrast exam. No evidence of significant thyroid mass. No pathologic axillary or mediastinal lymph node enlargement is seen. Coronary artery calcifications are seen. No significant pericardial effusion. Trace pleural effusion. Emphysematous changes in both lungs. Diffuse interstitial markings throughout both lungs, greater in the lung bases, likely due to a combination of chronic fibrosis and interstitial infiltrate. Some opacities have slightly nodular morphology. No dominant mass is seen. No evidence of pneumothorax. Trachea and mainstem bronchi are patent. Vertebral body height and alignment are intact. No evidence of aggressive bone destruction. Scans to the upper abdomen are limited by the technique. There is oral contrast within the colon. Calcified mass in the right kidney measures 18 x 13 mm, has a solid appearance. IMPRESSION: 1. Emphysema. 2. Diffuse pulmonary opacities, predominantly interstitial, likely due to a combination of chronic fibrosis and interstitial infiltrate, greatest at the lung bases. Some opacities have a slightly nodular morphology. Recommend short-term CT chest follow-up to document resolution. 3. Calcified mass in the upper pole the right kidney, recommend further workup such as with MRI of the kidneys or multiphase CT of the kidneys. Electronically signed by: Patricia Anthony MD (09/22/2019 12:39 PM) [id number] DICTATED and SIGNED BY: PATRICIA ANTHONY MD DATE: 09/22/19 1239 PATIENT: JANIYA NOE ACCOUNT: [id number] : 1945 LOCATION: [address] [place] [address] AGE: 75 SEX: F EXAM STATUS: ADM IN ORD. PHYSICIAN: RODOLFO MCFARLANE MD REASON: OBEY PROCEDURE: RENAL COMPLETE BILATERAL EXAM: RENAL ULTRASOUND CLINICAL HISTORY: Acute kidney injury COMPARISON: None available. TECHNIQUE: Ultrasound examination of the bilateral kidneys and urinary bladder was performed. FINDINGS: The longitudinal and AP and transverse dimensions of the right kidney are 9.2 cm and 4.2 cm and 3.9 cm respectively. There is a cyst of the upper pole of the right kidney measuring 14 mm. This is an incidental finding and no further follow-up is needed. The longitudinal and AP and transverse dimensions of the left kidney are 9.1 cm and 4.2 cm and 3.8 cm respectively. No hydronephrosis or renal mass or perinephric fluid collection is seen on either side. Urinary bladder is distended measuring 356 cc. No intraluminal echodensities or masses are seen. IMPRESSION: No hydronephrosis. Urinary bladder distention. Electronically signed by: Chay Atkins MD (03/14/2021 2:27 PM) [id number] DICTATED and SIGNED BY: CHAY ATKINS MD DATE: 03/14/21 [id number] PATIENT: JANIYA NOE ACCOUNT: [id number] : 1945 LOCATION: AGE: 75 SEX: F EXAM STATUS: REG ER ORD. PHYSICIAN: SHREYAS CALLE DO REASON: hypoxia PROCEDURE: CHEST AP ONLY Exam: Chest one view INDICATION: Hypoxia TECHNIQUE: Frontal view of the chest Comparisons: 09/21/2019 FINDINGS: The cardiomediastinal silhouette and pulmonary vessels are within normal limits. Extensive bilateral airspace disease greater in the right upper lung. No pleural effusion. IMPRESSION: Extensive bilateral airspace disease. Electronically signed by: Chandrika Schmitz MD (03/13/2021 7:45 PM) [facility] DICTATED and SIGNED BY: CHANDRIKA SCHMITZ MD DATE: 03/13/21 [id number] Laboratory Tests Test 03/14/21 12:30 03/14/21 12:35 03/14/21 16:15 03/14/21 19:45 Sodium Level 124 mmol/L (136-145) 128 mmol/L (136-145) 129 mmol/L (136-145) Creatine Kinase 1595 U/L (26-192) 1309 U/L (26-192) Vitamin B12 Level > 2000 pg/mL (247-911) 25-Hydroxy Vitamin D Total 45.3 ng/mL (30-100) Procalcitonin ng/mL (0.00-0.10) Urine Random Creatinine 89.9 mg/dL (Not Establ.) Urine Random Sodium <20 mmol/L (Not Estab.) Urine Opiates Screen Pos (NEG) Urine Methadone Screen Neg (NEG) Urine Barbiturates Neg (NEG) Urine Phencyclidine Screen Neg (NEG) Urine Amphetamine/Methamphetamine Neg (NEG) Urine Benzodiazepines Screen Neg (NEG) Urine Cocaine Screen Neg (NEG) Urine Cannabinoids Screen Neg (NEG) Urine Ethyl Alcohol Neg (NEG) Test 03/14/21 23:50 03/15/21 00:20 03/15/21 04:30 03/15/21 06:10 Sodium Level 129 mmol/L (136-145) 134 mmol/L (136-145) Creatine Kinase 1042 U/L (26-192) 972 U/L (26-192) Potassium Level 4.3 mmol/L (3.5-5.1) Chloride Level 97 mmol/L (98-107) Carbon Dioxide Level 25 mmol/L (21-32) Anion Gap 12 (6-14) Blood Urea Nitrogen 49 mg/dL (7-20) Creatinine 1.5 mg/dL (0.6-1.0) Estimated GFR (Cockcroft-Gault) 41.0 Glucose Level 74 mg/dL (70-99) Calcium Level 7.8 mg/dL (8.5-10.1) Phosphorus Level 3.5 mg/dL (2.6-4.7) Magnesium Level 2.6 mg/dL (1.8-2.4) Assessment and Plan Assessmemt and Plan Problems Medical Problems: (1) Acute renal failure Status: Acute (2) Hyponatremia Status: Acute (3) Pneumonia Status: Acute Comment Review of Relevant I have reviewed the following items kelvin (where applicable) has been applied. Labs Laboratory Tests Test 03/13/21 17:30 03/13/21 19:00 03/13/21 19:15 03/14/21 04:20 SARS-CoV-2 RNA (SOLE) Negative (Negative) SARS-CoV-2 Antigen (Rapid) Negative (NEGATIVE) Urine Collection Type U cath Urine Color Jeimy Urine Clarity Cloudy Urine pH 5.0 (<5.0-8.0) Urine Specific [place] 1.020 (1.000-1.030) Urine Protein 30 mg/dL (NEG-TRACE) Urine Glucose (UA) Negative mg/dL (NEG) Urine Ketones (Stick) Negative mg/dL (NEG) Urine Blood Small (NEG) Urine Nitrite Negative (NEG) Urine Bilirubin Small (NEG) Urine Urobilinogen Dipstick 0.2 mg/dL (0.2 mg/dL) Urine Leukocyte Esterase Negative (NEG) Urine RBC Rare /HPF (0-2) Urine WBC 0 /HPF (0-4) Urine Squamous Epithelial Cells Occ /LPF Urine Amorphous Sediment Present /HPF Urine Bacteria 0 /HPF (0-FEW) Urine Hyaline Casts Few /HPF Urine Granular Casts Few /HPF Urine Mucus Mod /LPF White Blood Count 17.2 x10^3/uL (4.0-11.0) 14.9 x10^3/uL (4.0-11.0) Red Blood Count 3.81 x10^6/uL (3.50-5.40) 3.34 x10^6/uL (3.50-5.40) Hemoglobin 11.5 g/dL (12.0-15.5) 10.1 g/dL (12.0-15.5) Hematocrit 33.7 % (36.0-47.0) 29.8 % (36.0-47.0) Mean Corpuscular Volume 89 fL (79-100) 89 fL (79-100) Mean Corpuscular Hemoglobin 30 pg (25-35) 30 pg (25-35) Mean Corpuscular Hemoglobin Concent 34 g/dL (31-37) 34 g/dL (31-37) Red Cell Distribution Width 14.4 % (11.5-14.5) 14.4 % (11.5-14.5) Platelet Count 334 x10^3/uL (140-400) 340 x10^3/uL (140-400) Neutrophils (%) (Auto) 89 % (31-73) 87 % (31-73) Lymphocytes (%) (Auto) 5 % (24-48) 8 % (24-48) Monocytes (%) (Auto) 5 % (0-9) 5 % (0-9) Eosinophils (%) (Auto) 0 % (0-3) 0 % (0-3) Basophils (%) (Auto) 0 % (0-3) 0 % (0-3) Neutrophils # (Auto) 15.3 x10^3/uL (1.8-7.7) 13.0 x10^3/uL (1.8-7.7) Lymphocytes # (Auto) 0.9 x10^3/uL (1.0-4.8) 1.1 x10^3/uL (1.0-4.8) Monocytes # (Auto) 0.9 x10^3/uL (0.0-1.1) 0.7 x10^3/uL (0.0-1.1) Eosinophils # (Auto) 0.0 x10^3/uL (0.0-0.7) 0.0 x10^3/uL (0.0-0.7) Basophils # (Auto) 0.0 x10^3/uL (0.0-0.2) 0.0 x10^3/uL (0.0-0.2) Segmented Neutrophils % 64 % (35-66) Band Neutrophils % 27 % (0-9) Lymphocytes % 7 % (24-48) Monocytes % 2 % (0-10) Toxic Granulation Slight Toxic Vacuolation Slight Platelet Estimate Adequate (ADEQUATE) Sodium Level 118 mmol/L (136-145) 121 mmol/L (136-145) Potassium Level 4.9 mmol/L (3.5-5.1) 4.6 mmol/L (3.5-5.1) Chloride Level 81 mmol/L (98-107) 86 mmol/L (98-107) Carbon Dioxide Level 28 mmol/L (21-32) 23 mmol/L (21-32) Anion Gap 9 (6-14) 12 (6-14) Blood Urea Nitrogen 76 mg/dL (7-20) 73 mg/dL (7-20) Creatinine 4.8 mg/dL (0.6-1.0) 3.6 mg/dL (0.6-1.0) Estimated GFR (Cockcroft-Gault) 10.7 14.9 BUN/Creatinine Ratio 16 (6-20) 20 (6-20) Glucose Level 93 mg/dL (70-99) 60 mg/dL (70-99) Calcium Level 8.2 mg/dL (8.5-10.1) 7.3 mg/dL (8.5-10.1) Total Bilirubin 0.3 mg/dL (0.2-1.0) 0.2 mg/dL (0.2-1.0) Aspartate Amino Transf (AST/SGOT) 81 U/L (15-37) 70 U/L (15-37) Alanine Aminotransferase (ALT/SGPT) 28 U/L (14-59) 24 U/L (14-59) Alkaline Phosphatase 101 U/L (46-116) 87 U/L (46-116) Creatine Kinase 1571 U/L (26-192) Troponin I Quantitative 0.049 ng/mL (0.000-0.055) 0.055 ng/mL (0.000-0.055) DR-Ihc-L-Type Natriuretic Peptide > 42419 pg/mL (0-449) Total Protein 6.9 g/dL (6.4-8.2) 6.0 g/dL (6.4-8.2) Albumin 2.7 g/dL (3.4-5.0) 2.3 g/dL (3.4-5.0) Albumin/Globulin Ratio 0.6 (1.0-1.7) 0.6 (1.0-1.7) Acetaminophen Level < 2 mcg/ml (10-30) Acetaminophen Last Dose Date Unknown Acetaminophen Last Dose Time Unknown Lactic Acid Level 0.5 mmol/L (0.4-2.0) Phosphorus Level 7.8 mg/dL (2.6-4.7) Magnesium Level 3.0 mg/dL (1.8-2.4) Thyroid Stimulating Hormone (TSH) 0.268 uIU/mL (0.358-3.74) Free Thyroxine 1.46 ng/dL (0.76-1.46) Test 03/14/21 10:05 03/14/21 12:30 03/14/21 12:35 03/14/21 16:15 Nasal Screen MRSA (PCR) Negative (NEGATIVE) Sodium Level 124 mmol/L (136-145) 128 mmol/L (136-145) Creatine Kinase 1595 U/L (26-192) Vitamin B12 Level > 2000 pg/mL (247-911) 25-Hydroxy Vitamin D Total 45.3 ng/mL (30-100) Procalcitonin ng/mL (0.00-0.10) Urine Random Creatinine 89.9 mg/dL (Not Establ.) Urine Random Sodium <20 mmol/L (Not Estab.) Urine Opiates Screen Pos (NEG) Urine Methadone Screen Neg (NEG) Urine Barbiturates Neg (NEG) Urine Phencyclidine Screen Neg (NEG) Urine Amphetamine/Methamphetamine Neg (NEG) Urine Benzodiazepines Screen Neg (NEG) Urine Cocaine Screen Neg (NEG) Urine Cannabinoids Screen Neg (NEG) Urine Ethyl Alcohol Neg (NEG) Test 03/14/21 19:45 03/14/21 23:50 03/15/21 00:20 03/15/21 04:30 Sodium Level 129 mmol/L (136-145) 129 mmol/L (136-145) 134 mmol/L (136-145) Creatine Kinase 1309 U/L (26-192) 1042 U/L (26-192) Potassium Level 4.3 mmol/L (3.5-5.1) Chloride Level 97 mmol/L (98-107) Carbon Dioxide Level 25 mmol/L (21-32) Anion Gap 12 (6-14) Blood Urea Nitrogen 49 mg/dL (7-20) Creatinine 1.5 mg/dL (0.6-1.0) Estimated GFR (Cockcroft-Gault) 41.0 Glucose Level 74 mg/dL (70-99) Calcium Level 7.8 mg/dL (8.5-10.1) Phosphorus Level 3.5 mg/dL (2.6-4.7) Magnesium Level 2.6 mg/dL (1.8-2.4) Test 03/15/21 06:10 Creatine Kinase 972 U/L (26-192) Laboratory Tests Test 03/14/21 12:30 03/14/21 12:35 03/14/21 16:15 03/14/21 19:45 Sodium Level 124 mmol/L (136-145) 128 mmol/L (136-145) 129 mmol/L (136-145) Creatine Kinase 1595 U/L (26-192) 1309 U/L (26-192) Vitamin B12 Level > 2000 pg/mL (247-911) 25-Hydroxy Vitamin D Total 45.3 ng/mL (30-100) Procalcitonin ng/mL (0.00-0.10) Urine Random Creatinine 89.9 mg/dL (Not Establ.) Urine Random Sodium <20 mmol/L (Not Estab.) Urine Opiates Screen Pos (NEG) Urine Methadone Screen Neg (NEG) Urine Barbiturates Neg (NEG) Urine Phencyclidine Screen Neg (NEG) Urine Amphetamine/Methamphetamine Neg (NEG) Urine Benzodiazepines Screen Neg (NEG) Urine Cocaine Screen Neg (NEG) Urine Cannabinoids Screen Neg (NEG) Urine Ethyl Alcohol Neg (NEG) Test 03/14/21 23:50 03/15/21 00:20 03/15/21 04:30 03/15/21 06:10 Sodium Level 129 mmol/L (136-145) 134 mmol/L (136-145) Creatine Kinase 1042 U/L (26-192) 972 U/L (26-192) Potassium Level 4.3 mmol/L (3.5-5.1) Chloride Level 97 mmol/L (98-107) Carbon Dioxide Level 25 mmol/L (21-32) Anion Gap 12 (6-14) Blood Urea Nitrogen 49 mg/dL (7-20) Creatinine 1.5 mg/dL (0.6-1.0) Estimated GFR (Cockcroft-Gault) 41.0 Glucose Level 74 mg/dL (70-99) Calcium Level 7.8 mg/dL (8.5-10.1) Phosphorus Level 3.5 mg/dL (2.6-4.7) Magnesium Level 2.6 mg/dL (1.8-2.4) Microbiology 03/14/21 Blood Culture - Preliminary, Resulted NO GROWTH AFTER 1 DAY Medications Current Medications Sodium Chloride 1,000 ml @ 1,000 mls/hr 1X ONCE IV Last administered on 03/13/21at 20:00; Start 03/13/21 at 20:15; Stop 03/13/21 at 21:14; Status DC Ceftriaxone Sodium (Rocephin) 1 gm 1X ONCE IVP Last administered on 03/13/21at 21:16; Start 03/13/21 at 20:30; Stop 03/13/21 at 20:31; Status DC Azithromycin 250 ml @ 250 mls/hr 1X ONCE IV Last administered on 03/13/21at 20:30; Start 03/13/21 at 20:30; Stop 03/13/21 at 21:29; Status DC Ondansetron HCl (Zofran) 4 mg PRN Q8HRS PRN IVP NAUSEA/VOMITING; Start 03/13/21 at 20:15; Stop 03/14/21 at 20:14; Status Cancel Acetaminophen (Tylenol) 650 mg PRN Q4HRS PRN PO FEVER > 100.3'F; Start 03/13/21 at 20:15; Stop 03/14/21 at 20:14; Status Cancel Sennosides (Senna) 17.2 mg PRN BID PRN PO CONSTIPATION; Start 03/14/21 at 09:00 Docusate Sodium (Colace) 100 mg PRN DAILY PRN PO HARD STOOLS; Start 03/14/21 at 09:00 Ondansetron HCl (Zofran) 4 mg PRN Q6HRS PRN IVP NAUSEA/VOMITING; Start 03/14/21 at 09:00 Dextrose (Dextrose 50%-Water Syringe) 12.5 gm PRN Q15MIN PRN IV SEE COMMENTS; Start 03/14/21 at 09:00 Sodium Chloride 1,000 ml @ 100 mls/hr Q10H IV Last administered on 03/15/21at 06:36; Start 03/14/21 at 09:00 Acetaminophen (Tylenol) 650 mg PRN Q4HRS PRN PO TEMP OVER 100.4F OR MILD PAIN; Start 03/14/21 at 09:00 Heparin Sodium (Porcine) (Heparin Sodium) 5,000 unit Q12HR SQ Last administered on 03/15/21at 09:46; Start 03/14/21 at 09:00 Azithromycin 500 mg/Sodium Chloride 250 ml @ 250 mls/hr Q24H IV Last administered on 03/14/21at 21:24; Start 03/14/21 at 20:00 Ceftriaxone Sodium (Rocephin) 1 gm Q24H IVP Last administered on 03/14/21at 21:25; Start 03/14/21 at 21:00 Prochlorperazine Edisylate (Compazine) 10 mg PRN Q6HRS PRN IV NAUSEA/VOMITING- 2ND CHOICE; Start 03/14/21 at 09:00 Oxycodone/ Acetaminophen (Percocet 10/325) 1 tab PRN Q6HRS PRN PO PAIN Last administered on 03/15/21at 09:54; Start 03/14/21 at 20:45 Active Scripts Active Prednisone (Prednisone) 10 Mg Tablet 3 Tab PO DAILY 5 Days Duoneb 0.5-3(2.5) Mg/3 Ml (Albuterol/Ipratropium) 3 Ml Ampul.neb 3 Ml NEB Q4HRS 30 Days Budesonide 0.5 Mg/2 Ml Ampul.neb 0.5 Mg NEB RTBID 30 Days Amox Tr-K Clv 500-125 Mg Tab (Amoxicillin/Potassium Clav) 1 Each Tablet 1 Tab PO BID 5 Days Reported Percocet 10-325 Mg Tablet (Oxycodone/Acetaminophen) 1 Each Tablet 1 Tab PO PRN Q4-6HRS PRN MDD 6 Tablet(s) 5 Days Alprazolam 0.5 Mg Tablet 1 Tab PO DAILY PRN Gabapentin 600 Mg Tablet 600 Mg PO TID Vitals/I & O Vital Sign - Last 24 Hours 03/14/21 03/14/21 03/14/21 03/14/21 15:00 19:00 20:00 21:32 Temp 98.9 97.7 98.9 97.7 Pulse 75 74 Resp 18 18 18 B/P (MAP) 91/42 (58) 102/49 (66) Pulse Ox 98 97 97 O2 Delivery Nasal Cannula Nasal Cannula Nasal Cannula Nasal Cannula O2 Flow Rate 4.0 4.0 4.0 03/14/21 03/14/21 03/15/21 03/15/21 22:02 23:00 03:06 06:34 Temp 98.3 97.3 97.8 98.3 97.3 97.8 Pulse 76 86 52 Resp 18 18 20 20 B/P (MAP) 90/43 (59) 115/50 (71) 107/43 (64) Pulse Ox 99 99 99 92 O2 Delivery Nasal Cannula Nasal Cannula Nasal Cannula Nasal Cannula O2 Flow Rate 4.0 03/15/21 09:54 O2 Delivery Nasal Cannula O2 Flow Rate 4.0 Intake and Output 03/14/21 03/14/21 03/15/21 15:00 23:00 07:00 Intake Total 170 ml 300 ml Output Total 600 ml 500 ml 200 ml Balance -430 ml -200 ml -200 ml Justicifation of Admission Dx: Justifications for Admission: Justification of Admission Dx: Yes Acute Renal Failure: RF Can't Be Managed Outpt DANIE BARCLAY MD Mar 15, 2021 11:44
[2021-03-15 12:15] LABS: BASO % 0 % (0-3); EOS % 0 % (0-3); HEMATOCRIT 28.1 % (36.0-47.0); HEMOGLOBIN 9.5 g/dL (12.0-15.5); LYMPH # 0.6 x10^3/uL (1.0-4.8); LYMPH % 4 % (24-48); MEAN CORPUSCULAR HEMOGLOBIN 30 pg (25-35); MEAN CORPUSCULAR HGB CONC 34 g/dL (31-37); MEAN CORPUSCULAR VOLUME 90 fL (79-100); MONO # 0.8 x10^3/uL (0.0-1.1); MONO % 6 % (0-9); NEUT # 12.9 x10^3/uL (1.8-7.7); NEUT % 90 % (31-73); PLATELET COUNT 346 x10^3/uL (140-400); RED BLOOD COUNT 3.12 x10^6/uL (3.50-5.40); WHITE BLOOD COUNT 14.3 x10^3/uL (4.0-11.0)
[2021-03-15 15:30] VITALS: BP 103/52
--- NOTE | 2021-03-15 15:52 | NUR ---
SW following. Discussed with RN, pt from home, where she takes care of her parents, 4L (does not use oxygen at home), renal diet. PT recommending SNF. Pt declined OT. COVID-19 negative. SW to meet with pt tomorrow to discuss SNF. SW will continue to follow.
[2021-03-15 19:00] VITALS: BP 115/57
[2021-03-15] MEDS: AZITHROMYCIN 500 MG in IV NORMAL SALINE 250ML 250 ML IV SCH (20:50)
[2021-03-15] MEDS: cefTRIAXone IV Push 1 GM VIAL. IVP SCH (20:51)
[2021-03-15] MEDS: LACTOBACILLUS RHAMNOSUS GG 1 CAPSULE. PO SCH (20:52)
[2021-03-15 23:00] VITALS: BP 121/58
[2021-03-16] MEDS: oxyCODONE/APAP 10/325 1 TAB TABLET PO PRN ×3 (02:00→20:55)
[2021-03-16 03:22] VITALS: BP 141/60
[2021-03-16] MEDS: IV NORMAL SALINE 1000ML BAG 1,000 ML IV SCH (06:09)
[2021-03-16 07:00] VITALS: BP 113/56
[2021-03-16 08:51] LABS: BASO % 0 % (0-3); EOS % 0 % (0-3); HEMATOCRIT 28.5 % (36.0-47.0); HEMOGLOBIN 9.4 g/dL (12.0-15.5); LYMPH # 1.1 x10^3/uL (1.0-4.8); LYMPH % 9 % (24-48); MEAN CORPUSCULAR HEMOGLOBIN 30 pg (25-35); MEAN CORPUSCULAR HGB CONC 33 g/dL (31-37); MEAN CORPUSCULAR VOLUME 91 fL (79-100); MONO % 8 % (0-9); NEUT # 10.3 x10^3/uL (1.8-7.7); NEUT % 83 % (31-73); PLATELET COUNT 359 x10^3/uL (140-400); RED BLOOD COUNT 3.15 x10^6/uL (3.50-5.40); WHITE BLOOD COUNT 12.4 x10^3/uL (4.0-11.0)
--- NOTE | 2021-03-16 09:51 | CONS ---
DATE OF CONSULTATION: 03/16/2021 ATTENDING PHYSICIAN: Dr. June. REASON FOR CONSULTATION: Pneumonia, hypoxia. HISTORY OF PRESENT ILLNESS: The patient is a 75-year-old female who admits to long tobacco history, likely for 50 years. The patient was brought into the hospital with generalized weakness and some altered mental status. The patient has a cough. Her oxygen saturations were in the 60s. She was initially placed on 15 liters nonrebreather mask. The patient underwent imaging study. I have reviewed the patient's chest x-ray, reveals unstable infiltrate in the right upper lobe. There are other faint interstitial infiltrates bilaterally as well. The patient was started on antibiotics. She is not the best historian. I have been asked to see her for further evaluation. She is currently on 4 liters. Saturations are 100%. She is afebrile. PAST MEDICAL HISTORY: Long history of tobacco use and suspect end-stage COPD. Arthritis as well. PAST SURGICAL HISTORY: No surgical history. ALLERGIES: None. MEDICATIONS: Reviewed as listed in the [facility]AD including antibiotics. REVIEW OF SYSTEMS: Limited, but pertinent positives discussed in my presence illness. SOCIAL HISTORY: Smoked for about 50 years. FAMILY HISTORY: Unable to obtain. PHYSICAL EXAMINATION: VITAL SIGNS: Vital signs were reviewed. Pulse ox 100% on 4 liters. NECK: Supple. LUNGS: With diminished breath sounds bilaterally. CARDIOVASCULAR: Regular rate. ABDOMEN: Soft. EXTREMITIES: With no pitting edema. LABORATORY DATA: Labs are reviewed. COVID is negative. BUN 49, creatinine 1.5. Sodium 134. Urine drug screen positive for opiates. White cell count was 17.2, now down to 12.4. IMPRESSION: 1. Acute hypoxic respiratory failure likely secondary to Gram-negative pneumonia. Could have some component of aspiration as well due to encephalopathy. 2. 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 The patient is very emaciated. 3. Abnormal chest x-ray consistent with pneumonia. 4. Acute kidney injury. 5. Leukocytosis secondary to pneumonia. RECOMMENDATIONS: 1. We will broaden the antibiotic. Discontinue Rocephin and change to Zosyn. 2. Continue azithromycin. 3. Deep venous thrombosis prophylaxis. 4. Continue with oxygen, keep saturation 92 and above. 5. Add bronchodilators. 6. Discussed with RN. We will follow along with you. DANDY DR: IMGNON/nts TID: [id number]
[2021-03-16] MEDS: LACTOBACILLUS RHAMNOSUS GG 1 CAPSULE. PO SCH ×2 (10:10→20:44)
[2021-03-16] MEDS: HEPARIN for SUB-Q USE 5,000 UNIT/ML VIAL. SQ SCH ×2 (10:13→21:01)
[2021-03-16] MEDS ORDERED: PIP/TAZO PER PHARMACY MC PRN ×2 (10:45)
[2021-03-16 11:00] VITALS: BP 133/55
[2021-03-16] MEDS ORDERED: ALBUTEROL SULFATE 2.5 MG/3 ML NEBU. NEB PRN (11:00)
--- NOTE | 2021-03-16 11:08 | PDOC ---
[facility] [facility] PROGRESS NOTE Date of Service DOS: DATE: 03/16/21 TIME: 10:45 Chief Complaint Chief Complaint A/P: Acute metabolic and infectious encephalopathy Atypical bilateral pneumonia, likely gram-negative organisms, possible aspiration pneumonia /Extensive bilateral airspace disease. Elevated BNP - likely due to renal failure Acute electrolyte derangementhyponatremia, hypochloremia OBEY due to vasomotor nephropathy CR 4.8 ON ADMIT Severe symptomatic hyponatremia suggestive of low solute intake Elevated creatinine kinase due to rhabdomyolysis Bedbound status Severe protein malnutrition Elevated AST ALT ratio No hydronephrosis. Urinary bladder distention. Heparin for DVT prophylaxis N.p.o. if altered mental status Full code Discussed with RN and ZEINAB Dispo inpatient management as above pulm consult History of Present Illness History of Present Illness Ms Rodriguez is a 74-year-old -[place] female with a history of COPD and smoking, peripheral neuropathy, anxiety, congestive heart failure and anemia who presented with altered mental status and generalized weakness. Patient lives at home with her family. Patient's family called 911 due to elayne trujillo's generalized weakness and altered mental status. Family states patient has been in bed all day, but had fallen out of the bed at one point a few days prior to presentation. Patient did not want to come to the ED. Upon EMS arrival patient was noted to have an oxygen saturation in the 80s. Creatinine greater than 4 on admit CK urine thousand. Family says that she just sits at home smokes and drinks Coca-Cola all day. In ER patient was switched over to 2 L nasal cannula and still remains 100% on room air. During my exam patient does have mild coug but her lungs are clear bilateral and her heart is regular. She lives at home with her mother and son. She denies contact with persons who have been ill. She does not have any pets. Denies recent traveling. Seen by Pulmonology and nephrology in consultation. Planned to have COVID 19 vaccination on 03/16 03/15: Cr improving She is on 3L NCO2 at rest today. No CP. Still dyspneic, but denies SOB. Developed some brownish sputum. Pulmonology change antibiotics to Zosyn. Creatinine has been improving. Vitals/I&O Vitals/I&O: Vital Signs Date Time Temp Pulse Resp B/P (MAP) Pulse Ox O2 Delivery O2 Flow Rate FiO2 03/16/21 07:00 97.9 65 16 113/56 (75) 100 Nasal Cannula 4.0 97.9 Physical Exam General: Alert, Oriented X3, Cooperative, mild distress Heart: Regular rate, Normal S1, Normal S2 Lungs: Other Abdomen: Normal bowel sounds, Soft, No tenderness Extremities: No clubbing, No cyanosis Skin: No breakdown Labs Labs: Laboratory Tests Test 03/15/21 10:50 03/16/21 07:40 White Blood Count 14.3 x10^3/uL (4.0-11.0) 12.4 x10^3/uL (4.0-11.0) Red Blood Count 3.12 x10^6/uL (3.50-5.40) 3.15 x10^6/uL (3.50-5.40) Hemoglobin 9.5 g/dL (12.0-15.5) 9.4 g/dL (12.0-15.5) Hematocrit 28.1 % (36.0-47.0) 28.5 % (36.0-47.0) Mean Corpuscular Volume 90 fL (79-100) 91 fL (79-100) Mean Corpuscular Hemoglobin 30 pg (25-35) 30 pg (25-35) Mean Corpuscular Hemoglobin Concent 34 g/dL (31-37) 33 g/dL (31-37) Red Cell Distribution Width 15.0 % (11.5-14.5) 15.0 % (11.5-14.5) Platelet Count 346 x10^3/uL (140-400) 359 x10^3/uL (140-400) Neutrophils (%) (Auto) 90 % (31-73) 83 % (31-73) Lymphocytes (%) (Auto) 4 % (24-48) 9 % (24-48) Monocytes (%) (Auto) 6 % (0-9) 8 % (0-9) Eosinophils (%) (Auto) 0 % (0-3) 0 % (0-3) Basophils (%) (Auto) 0 % (0-3) 0 % (0-3) Neutrophils # (Auto) 12.9 x10^3/uL (1.8-7.7) 10.3 x10^3/uL (1.8-7.7) Lymphocytes # (Auto) 0.6 x10^3/uL (1.0-4.8) 1.1 x10^3/uL (1.0-4.8) Monocytes # (Auto) 0.8 x10^3/uL (0.0-1.1) 1.0 x10^3/uL (0.0-1.1) Eosinophils # (Auto) 0.0 x10^3/uL (0.0-0.7) 0.0 x10^3/uL (0.0-0.7) Basophils # (Auto) 0.0 x10^3/uL (0.0-0.2) 0.0 x10^3/uL (0.0-0.2) Assessment and Plan Assessmemt and Plan Problems Medical Problems: (1) Acute renal failure Status: Acute (2) Hyponatremia Status: Acute (3) Pneumonia Status: Acute Comment Review of Relevant I have reviewed the following items kelvin (where applicable) has been applied. Medications: Current Medications Medications (Trade) Dose Ordered Sig/Brissa Route PRN Reason Start Time Stop Time Status Last Admin Dose Admin Lactobacillus Rhamnosus (Culturelle) 1 cap BID PO 03/15/21 21:00 03/16/21 10:10 Justifications for Admission Other Justification Generalized weakness and pneumonia RACHAEL CAMARGO MD Mar 16, 2021 11:08
[2021-03-16] MEDS ORDERED: methylPREDNISolone SOD SUCC PF 40 MG/ML VIAL. IV ONE (11:15)
--- NOTE | 2021-03-16 11:44 | PDOC ---
Renal-Progress Notes Subjective Notes Notes LESS CONFUSED History of Present Illness Hx of present illness STABLE Vitals Vitals Vital Signs Date Time Temp Pulse Resp B/P (MAP) Pulse Ox O2 Delivery O2 Flow Rate FiO2 03/16/21 08:00 Nasal Cannula 4.0 03/16/21 07:00 97.9 65 16 113/56 (75) 100 97.9 Weight Weight [ ] Labs Labs Laboratory Tests Test 03/16/21 07:40 White Blood Count 12.4 x10^3/uL (4.0-11.0) Red Blood Count 3.15 x10^6/uL (3.50-5.40) Hemoglobin 9.4 g/dL (12.0-15.5) Hematocrit 28.5 % (36.0-47.0) Mean Corpuscular Volume 91 fL (79-100) Mean Corpuscular Hemoglobin 30 pg (25-35) Mean Corpuscular Hemoglobin Concent 33 g/dL (31-37) Red Cell Distribution Width 15.0 % (11.5-14.5) Platelet Count 359 x10^3/uL (140-400) Neutrophils (%) (Auto) 83 % (31-73) Lymphocytes (%) (Auto) 9 % (24-48) Monocytes (%) (Auto) 8 % (0-9) Eosinophils (%) (Auto) 0 % (0-3) Basophils (%) (Auto) 0 % (0-3) Neutrophils # (Auto) 10.3 x10^3/uL (1.8-7.7) Lymphocytes # (Auto) 1.1 x10^3/uL (1.0-4.8) Monocytes # (Auto) 1.0 x10^3/uL (0.0-1.1) Eosinophils # (Auto) 0.0 x10^3/uL (0.0-0.7) Basophils # (Auto) 0.0 x10^3/uL (0.0-0.2) Micro Micro Microbiology 03/14/21 Blood Culture - Preliminary, Resulted NO GROWTH AFTER 2 DAYS Review of Systems Constitutional: yes: weakness, alert Ears/Nose/Throat: Yes: no symptom reported Eyes: Yes: no symptom reported Pulmonary: Yes no symptom reported Cardiovascular: Yes no symptom reported Gastrointestional: Yes: no symptom reported Genitourinary: Yes: no symptom reported Musculoskeletal: Yes: no symptom reported Skin: Yes no symptom reported Psychiatric/Neurological: Yes: confusion Endocrine: Yes: no symptom reported Physical Exam General Appearance: no apparent distress Skin: warm Respiratory: bilateral CTA Heart: S1S2 Abdomen: soft, bowel sounds present Genitourinary: bladder flat Extremities: pulses present Neurology: alert, confused Assessment Assessment IMP ENCEPHALOPATHY SEVERE HYPONATREMIA-NEARLY RESOLVED LEUCOCYTOSIS-IMPROVING PNEUMONIA ACUTE HYPOXIC RESP FAILURE OBEY-ATN-CR OF 4.8-NO CKD-CR DOWN TO 1.5 URINARY RETENTION SUSPECT VOLUME DEPLETION CHRONICALLY ELEVATED BNP HX OF DIASTOLIC CHF-EF OF 55% ELEVATED [id number] POSSIBLE RHABDOMYOLYSIS DECONDITIONING MALNUTRITION PLAN ANTIBIOTICS SONO REVIEWED - NO HYDRO SUPPLEMENTAL O2 F/U CPK LEVEL NUTRITIONAL SUPPLEMENTS ENC PO WILL FOLLOW RODOLFO MCFARLANE MD Mar 16, 2021 11:44
[2021-03-16] MEDS ORDERED: IPRATRPIUM/ALBUTEROL 0.5/2.5MG 3 ML NEBU. NEB SCH (12:00)
[2021-03-16] MEDS: PIPERACILLIN/TAZOBACTAM 2.25 GM in IV NORMAL SALINE 50ML 50 ML IV SCH ×2 (12:10→17:44)
[2021-03-16 12:49] LABS: CALCIUM 8.1 mg/dL (8.5-10.1); CREATININE 0.9 mg/dL (0.6-1.0); GFR 73.9; MAGNESIUM 1.8 mg/dL (1.8-2.4); POTASSIUM 3.6 mmol/L (3.5-5.1)
[2021-03-16 13:14] LABS: URINE OSMOLALITY 289 mOsmol/kg (.)
[2021-03-16] MEDS: BUDESONIDE 0.5 MG/2 ML NEBU. NEB SCH ×2 (14:36→20:08)
[2021-03-16] MEDS: IPRATRPIUM/ALBUTEROL 0.5/2.5MG 3 ML NEBU. NEB SCH ×3 (14:37→20:08)
[2021-03-16 15:00] VITALS: BP 117/59
[2021-03-16 19:46] VITALS: BP 119/57
[2021-03-16] MEDS: AZITHROMYCIN 500 MG in IV NORMAL SALINE 250ML 250 ML IV SCH (20:44)
[2021-03-16 23:25] VITALS: BP 115/53
[2021-03-17] MEDS: PIPERACILLIN/TAZOBACTAM 2.25 GM in IV NORMAL SALINE 50ML 50 ML IV SCH ×4 (00:52→16:59)
[2021-03-17] MEDS: oxyCODONE/APAP 10/325 1 TAB TABLET PO PRN ×2 (04:35→21:07)
[2021-03-17 05:24] LABS: CALCIUM 8.7 mg/dL (8.5-10.1); CREATININE 0.9 mg/dL (0.6-1.0); GFR 73.9; MAGNESIUM 1.6 mg/dL (1.8-2.4); POTASSIUM 3.7 mmol/L (3.5-5.1)
[2021-03-17 05:27] LABS: BASO % 0 % (0-3); EOS % 0 % (0-3); HEMATOCRIT 29.5 % (36.0-47.0); HEMOGLOBIN 9.9 g/dL (12.0-15.5); LYMPH # 0.5 x10^3/uL (1.0-4.8); LYMPH % 5 % (24-48); MEAN CORPUSCULAR HEMOGLOBIN 30 pg (25-35); MEAN CORPUSCULAR HGB CONC 33 g/dL (31-37); MEAN CORPUSCULAR VOLUME 91 fL (79-100); MONO # 0.6 x10^3/uL (0.0-1.1); MONO % 5 % (0-9); NEUT # 10.3 x10^3/uL (1.8-7.7); NEUT % 90 % (31-73); PLATELET COUNT 378 x10^3/uL (140-400); RED BLOOD COUNT 3.24 x10^6/uL (3.50-5.40); WHITE BLOOD COUNT 11.4 x10^3/uL (4.0-11.0)
[2021-03-17 07:00] VITALS: BP 153/52
[2021-03-17] MEDS: IPRATRPIUM/ALBUTEROL 0.5/2.5MG 3 ML NEBU. NEB SCH ×4 (07:46→20:39)
[2021-03-17] MEDS: BUDESONIDE 0.5 MG/2 ML NEBU. NEB SCH ×2 (07:46→20:39)
[2021-03-17] MEDS: LACTOBACILLUS RHAMNOSUS GG 1 CAPSULE. PO SCH ×2 (08:17→21:04)
[2021-03-17] MEDS: HEPARIN for SUB-Q USE 5,000 UNIT/ML VIAL. SQ SCH ×2 (08:23→21:14)
--- NOTE | 2021-03-17 09:33 | PDOC ---
PULMONARY PROGRESS NOTES DATE: 03/17/21 TIME: 09:32 Subjective Patient is more awake. Denies any shortness of breath. Vitals Vital Signs Date Time Temp Pulse Resp B/P (MAP) Pulse Ox O2 Delivery O2 Flow Rate FiO2 03/17/21 07:49 100 Nasal Cannula 3.5 03/17/21 07:00 98.7 83 18 153/52 (85) 98.7 General: Alert, No acute distress Lungs: Other (Decreased breath sounds bilaterally) Cardiovascular: S1, S2 Abdomen: Soft, Non-tender, Other Extremities: No Edema Labs Laboratory Tests Test 03/15/21 10:50 03/16/21 07:40 03/17/21 04:15 White Blood Count 14.3 x10^3/uL (4.0-11.0) 12.4 x10^3/uL (4.0-11.0) 11.4 x10^3/uL (4.0-11.0) Red Blood Count 3.12 x10^6/uL (3.50-5.40) 3.15 x10^6/uL (3.50-5.40) 3.24 x10^6/uL (3.50-5.40) Hemoglobin 9.5 g/dL (12.0-15.5) 9.4 g/dL (12.0-15.5) 9.9 g/dL (12.0-15.5) Hematocrit 28.1 % (36.0-47.0) 28.5 % (36.0-47.0) 29.5 % (36.0-47.0) Mean Corpuscular Volume 90 fL (79-100) 91 fL (79-100) 91 fL (79-100) Mean Corpuscular Hemoglobin 30 pg (25-35) 30 pg (25-35) 30 pg (25-35) Mean Corpuscular Hemoglobin Concent 34 g/dL (31-37) 33 g/dL (31-37) 33 g/dL (31-37) Red Cell Distribution Width 15.0 % (11.5-14.5) 15.0 % (11.5-14.5) 15.0 % (11.5-14.5) Platelet Count 346 x10^3/uL (140-400) 359 x10^3/uL (140-400) 378 x10^3/uL (140-400) Neutrophils (%) (Auto) 90 % (31-73) 83 % (31-73) 90 % (31-73) Lymphocytes (%) (Auto) 4 % (24-48) 9 % (24-48) 5 % (24-48) Monocytes (%) (Auto) 6 % (0-9) 8 % (0-9) 5 % (0-9) Eosinophils (%) (Auto) 0 % (0-3) 0 % (0-3) 0 % (0-3) Basophils (%) (Auto) 0 % (0-3) 0 % (0-3) 0 % (0-3) Neutrophils # (Auto) 12.9 x10^3/uL (1.8-7.7) 10.3 x10^3/uL (1.8-7.7) 10.3 x10^3/uL (1.8-7.7) Lymphocytes # (Auto) 0.6 x10^3/uL (1.0-4.8) 1.1 x10^3/uL (1.0-4.8) 0.5 x10^3/uL (1.0-4.8) Monocytes # (Auto) 0.8 x10^3/uL (0.0-1.1) 1.0 x10^3/uL (0.0-1.1) 0.6 x10^3/uL (0.0-1.1) Eosinophils # (Auto) 0.0 x10^3/uL (0.0-0.7) 0.0 x10^3/uL (0.0-0.7) 0.0 x10^3/uL (0.0-0.7) Basophils # (Auto) 0.0 x10^3/uL (0.0-0.2) 0.0 x10^3/uL (0.0-0.2) 0.0 x10^3/uL (0.0-0.2) Sodium Level 139 mmol/L (136-145) 139 mmol/L (136-145) Potassium Level 3.6 mmol/L (3.5-5.1) 3.7 mmol/L (3.5-5.1) Chloride Level 103 mmol/L (98-107) 104 mmol/L (98-107) Carbon Dioxide Level 30 mmol/L (21-32) 29 mmol/L (21-32) Anion Gap 6 (6-14) 6 (6-14) Blood Urea Nitrogen 18 mg/dL (7-20) 12 mg/dL (7-20) Creatinine 0.9 mg/dL (0.6-1.0) 0.9 mg/dL (0.6-1.0) Estimated GFR (Cockcroft-Gault) 73.9 73.9 Glucose Level 78 mg/dL (70-99) 160 mg/dL (70-99) Calcium Level 8.1 mg/dL (8.5-10.1) 8.7 mg/dL (8.5-10.1) Magnesium Level 1.8 mg/dL (1.8-2.4) 1.6 mg/dL (1.8-2.4) Laboratory Tests Test 03/17/21 04:15 White Blood Count 11.4 x10^3/uL (4.0-11.0) Red Blood Count 3.24 x10^6/uL (3.50-5.40) Hemoglobin 9.9 g/dL (12.0-15.5) Hematocrit 29.5 % (36.0-47.0) Mean Corpuscular Volume 91 fL (79-100) Mean Corpuscular Hemoglobin 30 pg (25-35) Mean Corpuscular Hemoglobin Concent 33 g/dL (31-37) Red Cell Distribution Width 15.0 % (11.5-14.5) Platelet Count 378 x10^3/uL (140-400) Neutrophils (%) (Auto) 90 % (31-73) Lymphocytes (%) (Auto) 5 % (24-48) Monocytes (%) (Auto) 5 % (0-9) Eosinophils (%) (Auto) 0 % (0-3) Basophils (%) (Auto) 0 % (0-3) Neutrophils # (Auto) 10.3 x10^3/uL (1.8-7.7) Lymphocytes # (Auto) 0.5 x10^3/uL (1.0-4.8) Monocytes # (Auto) 0.6 x10^3/uL (0.0-1.1) Eosinophils # (Auto) 0.0 x10^3/uL (0.0-0.7) Basophils # (Auto) 0.0 x10^3/uL (0.0-0.2) Sodium Level 139 mmol/L (136-145) Potassium Level 3.7 mmol/L (3.5-5.1) Chloride Level 104 mmol/L (98-107) Carbon Dioxide Level 29 mmol/L (21-32) Anion Gap 6 (6-14) Blood Urea Nitrogen 12 mg/dL (7-20) Creatinine 0.9 mg/dL (0.6-1.0) Estimated GFR (Cockcroft-Gault) 73.9 Glucose Level 160 mg/dL (70-99) Calcium Level 8.7 mg/dL (8.5-10.1) Magnesium Level 1.6 mg/dL (1.8-2.4) Medications Active Scripts Medications Dose Route/Sig Max Daily Dose Days Date Category Prednisone (Prednisone) 10 Mg Tablet 3 Tab PO DAILY 5 09/18/19 Rx Duoneb 0.5-3(2.5) Mg/3 Ml (Albuterol/Ipratropium) 3 Ml Ampul.neb 3 Ml NEB Q4HRS 30 09/18/19 Rx Budesonide 0.5 Mg/2 Ml Ampul.neb 0.5 Mg NEB RTBID 30 09/18/19 Rx Amox Tr-K Clv 500-125 Mg Tab (Amoxicillin/Potassium Clav) 1 Each Tablet 1 Tab PO BID 5 09/18/19 Rx Percocet 10-325 Mg Tablet (Oxycodone/Acetaminophen) 1 Each Tablet 1 Tab PO PRN Q4-6HRS PRN MDD 6 Tablet(s) 5 09/18/19 Reported Alprazolam 0.5 Mg Tablet 1 Tab PO DAILY PRN 09/18/19 Reported Gabapentin 600 Mg Tablet 600 Mg PO TID 09/18/19 Reported Impression . 1. Acute hypoxic respiratory failure likely secondary to suspected gram- negative pneumonia. Could have some component of aspiration as well due to encephalopathy. 2. 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 The patient is very emaciated. 3. Abnormal chest x-ray consistent with pneumonia. 4. Acute kidney injury. 5. Leukocytosis secondary to pneumonia. Plan . 1. Continue broad-spectrum antibiotics. 2. Follow-up chest x-ray in few days. 3. Deep venous thrombosis prophylaxis. 4. Continue with oxygen, keep saturation 92 and above. 5. bronchodilators. 6. Discussed with RN. We will follow along with you. GENTRY FISHMAN MD Mar 17, 2021 09:33
[2021-03-17] MEDS: DOCUSATE SODIUM 100 MG CAPSULE. PO PRN (09:52)
--- NOTE | 2021-03-17 10:05 | PDOC ---
PROGRESS NOTES Date of Service: DATE: 03/17/21 TIME: 10:05 Chief Complaint Chief Complaint A/P: Acute metabolic and infectious encephalopathy Atypical bilateral pneumonia, likely gram-negative organisms, possible aspiration pneumonia /Extensive bilateral airspace disease. Elevated BNP - likely due to renal failure Acute electrolyte derangementhyponatremia, hypochloremia OBEY due to vasomotor nephropathy CR 4.8 ON ADMIT Severe symptomatic hyponatremia suggestive of low solute intake Elevated creatinine kinase due to rhabdomyolysis Bedbound status Severe protein malnutrition Elevated AST ALT ratio No hydronephrosis. Urinary bladder distention. Heparin for DVT prophylaxis N.p.o. if altered mental status Full code Discussed with RN and ZEINAB Dispo inpatient management as above pulm consult History of Present Illness History of Present Illness Ms Rodriguez is a 74-year-old -[place] female with a history of COPD and smoking, peripheral neuropathy, anxiety, congestive heart failure and anemia who presented with altered mental status and generalized weakness. Patient lives at home with her family. Patient's family called 911 due to patient's generalized weakness and altered mental status. Family states patient has been in bed all day, but had fallen out of the bed at one point a few days prior to presentation. Patient did not want to come to the ED. Upon EMS arrival patient was noted to have an oxygen saturation in the 80s. Creatinine greater than 4 on admit CK urine thousand. Family says that she just sits at home smokes and drinks Coca-Cola all day. In ER patient was switched over to 2 L nasal cannula and still remains 100% on room air. During my exam patient does have mild coug but her lungs are clear bilateral and her heart is regular. She lives at home with her mother and son. She denies contact with persons who have been ill. She does not have any pets. Denies recent traveling. Seen by Pulmonology and nephrology in consultation. Planned to have COVID 19 vaccination on 03/16 03/15: Cr improving She is on 3L NCO2 at rest today. No CP. Still dyspneic, but denies SOB. Developed some brownish sputum. Pulmonology change antibiotics to Zosyn. Creatinine has been improving. 03/17 Cr improving Still dyspneic, but denies SOB. change antibiotics to Zosyn. Acute metabolic and infectious encephalopathy Atypical bilateral pneumonia, likely gram-negative organisms, possible aspiration pneumonia /Extensive bilateral airspace disease. Elevated BNP - likely due to renal failure Acute electrolyte derangementhyponatremia, hypochloremia OBEY due to vasomotor nephropathy CR 4.8 ON ADMIT Severe symptomatic hyponatremia suggestive of low solute intake Elevated creatinine kinase due to rhabdomyolysis Bedbound status Severe protein malnutrition Elevated AST ALT ratio No hydronephrosis. Urinary bladder distention. ELEVATED [id number], CONT TO TREND POSSIBLE RHABDOMYOLYSIS D/W RN Vitals Vitals Vital Signs Date Time Temp Pulse Resp B/P (MAP) Pulse Ox O2 Delivery O2 Flow Rate FiO2 03/17/21 07:49 100 Nasal Cannula 3.5 03/17/21 07:00 98.7 83 18 153/52 (85) 98.7 Physical Exam General: Alert, Oriented X3, Cooperative, mild distress Heart: Regular rate, Normal S1, Normal S2 Lungs: Other (Decreased breath sounds bilaterally) Abdomen: Normal bowel sounds, Soft, No tenderness Extremities: No clubbing, No cyanosis Skin: No breakdown Labs LABS Laboratory Tests Test 03/17/21 04:15 White Blood Count 11.4 x10^3/uL (4.0-11.0) Red Blood Count 3.24 x10^6/uL (3.50-5.40) Hemoglobin 9.9 g/dL (12.0-15.5) Hematocrit 29.5 % (36.0-47.0) Mean Corpuscular Volume 91 fL (79-100) Mean Corpuscular Hemoglobin 30 pg (25-35) Mean Corpuscular Hemoglobin Concent 33 g/dL (31-37) Red Cell Distribution Width 15.0 % (11.5-14.5) Platelet Count 378 x10^3/uL (140-400) Neutrophils (%) (Auto) 90 % (31-73) Lymphocytes (%) (Auto) 5 % (24-48) Monocytes (%) (Auto) 5 % (0-9) Eosinophils (%) (Auto) 0 % (0-3) Basophils (%) (Auto) 0 % (0-3) Neutrophils # (Auto) 10.3 x10^3/uL (1.8-7.7) Lymphocytes # (Auto) 0.5 x10^3/uL (1.0-4.8) Monocytes # (Auto) 0.6 x10^3/uL (0.0-1.1) Eosinophils # (Auto) 0.0 x10^3/uL (0.0-0.7) Basophils # (Auto) 0.0 x10^3/uL (0.0-0.2) Sodium Level 139 mmol/L (136-145) Potassium Level 3.7 mmol/L (3.5-5.1) Chloride Level 104 mmol/L (98-107) Carbon Dioxide Level 29 mmol/L (21-32) Anion Gap 6 (6-14) Blood Urea Nitrogen 12 mg/dL (7-20) Creatinine 0.9 mg/dL (0.6-1.0) Estimated GFR (Cockcroft-Gault) 73.9 Glucose Level 160 mg/dL (70-99) Calcium Level 8.7 mg/dL (8.5-10.1) Magnesium Level 1.6 mg/dL (1.8-2.4) Assessment and Plan Assessmemt and Plan Problems Medical Problems: (1) Acute renal failure Status: Acute (2) Hyponatremia Status: Acute (3) Pneumonia Status: Acute Comment Review of Relevant I have reviewed the following items kelvin (where applicable) has been applied. Labs Laboratory Tests Test 03/15/21 10:50 03/16/21 07:40 03/17/21 04:15 White Blood Count 14.3 x10^3/uL (4.0-11.0) 12.4 x10^3/uL (4.0-11.0) 11.4 x10^3/uL (4.0-11.0) Red Blood Count 3.12 x10^6/uL (3.50-5.40) 3.15 x10^6/uL (3.50-5.40) 3.24 x10^6/uL (3.50-5.40) Hemoglobin 9.5 g/dL (12.0-15.5) 9.4 g/dL (12.0-15.5) 9.9 g/dL (12.0-15.5) Hematocrit 28.1 % (36.0-47.0) 28.5 % (36.0-47.0) 29.5 % (36.0-47.0) Mean Corpuscular Volume 90 fL (79-100) 91 fL (79-100) 91 fL (79-100) Mean Corpuscular Hemoglobin 30 pg (25-35) 30 pg (25-35) 30 pg (25-35) Mean Corpuscular Hemoglobin Concent 34 g/dL (31-37) 33 g/dL (31-37) 33 g/dL (31-37) Red Cell Distribution Width 15.0 % (11.5-14.5) 15.0 % (11.5-14.5) 15.0 % (11.5-14.5) Platelet Count 346 x10^3/uL (140-400) 359 x10^3/uL (140-400) 378 x10^3/uL (140-400) Neutrophils (%) (Auto) 90 % (31-73) 83 % (31-73) 90 % (31-73) Lymphocytes (%) (Auto) 4 % (24-48) 9 % (24-48) 5 % (24-48) Monocytes (%) (Auto) 6 % (0-9) 8 % (0-9) 5 % (0-9) Eosinophils (%) (Auto) 0 % (0-3) 0 % (0-3) 0 % (0-3) Basophils (%) (Auto) 0 % (0-3) 0 % (0-3) 0 % (0-3) Neutrophils # (Auto) 12.9 x10^3/uL (1.8-7.7) 10.3 x10^3/uL (1.8-7.7) 10.3 x10^3/uL (1.8-7.7) Lymphocytes # (Auto) 0.6 x10^3/uL (1.0-4.8) 1.1 x10^3/uL (1.0-4.8) 0.5 x10^3/uL (1.0-4.8) Monocytes # (Auto) 0.8 x10^3/uL (0.0-1.1) 1.0 x10^3/uL (0.0-1.1) 0.6 x10^3/uL (0.0-1.1) Eosinophils # (Auto) 0.0 x10^3/uL (0.0-0.7) 0.0 x10^3/uL (0.0-0.7) 0.0 x10^3/uL (0.0-0.7) Basophils # (Auto) 0.0 x10^3/uL (0.0-0.2) 0.0 x10^3/uL (0.0-0.2) 0.0 x10^3/uL (0.0-0.2) Sodium Level 139 mmol/L (136-145) 139 mmol/L (136-145) Potassium Level 3.6 mmol/L (3.5-5.1) 3.7 mmol/L (3.5-5.1) Chloride Level 103 mmol/L (98-107) 104 mmol/L (98-107) Carbon Dioxide Level 30 mmol/L (21-32) 29 mmol/L (21-32) Anion Gap 6 (6-14) 6 (6-14) Blood Urea Nitrogen 18 mg/dL (7-20) 12 mg/dL (7-20) Creatinine 0.9 mg/dL (0.6-1.0) 0.9 mg/dL (0.6-1.0) Estimated GFR (Cockcroft-Gault) 73.9 73.9 Glucose Level 78 mg/dL (70-99) 160 mg/dL (70-99) Calcium Level 8.1 mg/dL (8.5-10.1) 8.7 mg/dL (8.5-10.1) Magnesium Level 1.8 mg/dL (1.8-2.4) 1.6 mg/dL (1.8-2.4) Laboratory Tests Test 03/17/21 04:15 White Blood Count 11.4 x10^3/uL (4.0-11.0) Red Blood Count 3.24 x10^6/uL (3.50-5.40) Hemoglobin 9.9 g/dL (12.0-15.5) Hematocrit 29.5 % (36.0-47.0) Mean Corpuscular Volume 91 fL (79-100) Mean Corpuscular Hemoglobin 30 pg (25-35) Mean Corpuscular Hemoglobin Concent 33 g/dL (31-37) Red Cell Distribution Width 15.0 % (11.5-14.5) Platelet Count 378 x10^3/uL (140-400) Neutrophils (%) (Auto) 90 % (31-73) Lymphocytes (%) (Auto) 5 % (24-48) Monocytes (%) (Auto) 5 % (0-9) Eosinophils (%) (Auto) 0 % (0-3) Basophils (%) (Auto) 0 % (0-3) Neutrophils # (Auto) 10.3 x10^3/uL (1.8-7.7) Lymphocytes # (Auto) 0.5 x10^3/uL (1.0-4.8) Monocytes # (Auto) 0.6 x10^3/uL (0.0-1.1) Eosinophils # (Auto) 0.0 x10^3/uL (0.0-0.7) Basophils # (Auto) 0.0 x10^3/uL (0.0-0.2) Sodium Level 139 mmol/L (136-145) Potassium Level 3.7 mmol/L (3.5-5.1) Chloride Level 104 mmol/L (98-107) Carbon Dioxide Level 29 mmol/L (21-32) Anion Gap 6 (6-14) Blood Urea Nitrogen 12 mg/dL (7-20) Creatinine 0.9 mg/dL (0.6-1.0) Estimated GFR (Cockcroft-Gault) 73.9 Glucose Level 160 mg/dL (70-99) Calcium Level 8.7 mg/dL (8.5-10.1) Magnesium Level 1.6 mg/dL (1.8-2.4) Microbiology 03/14/21 Blood Culture - Preliminary, Resulted NO GROWTH AFTER 3 DAYS Medications Current Medications Sodium Chloride 1,000 ml @ 1,000 mls/hr 1X ONCE IV Last administered on 03/13/21at 20:00; Start 03/13/21 at 20:15; Stop 03/13/21 at 21:14; Status DC Ceftriaxone Sodium (Rocephin) 1 gm 1X ONCE IVP Last administered on 03/13/21at 21:16; Start 03/13/21 at 20:30; Stop 03/13/21 at 20:31; Status DC Azithromycin 250 ml @ 250 mls/hr 1X ONCE IV Last administered on 03/13/21at 20:30; Start 03/13/21 at 20:30; Stop 03/13/21 at 21:29; Status DC Ondansetron HCl (Zofran) 4 mg PRN Q8HRS PRN IVP NAUSEA/VOMITING; Start 03/13/21 at 20:15; Stop 03/14/21 at 20:14; Status Cancel Acetaminophen (Tylenol) 650 mg PRN Q4HRS PRN PO FEVER > 100.3'F; Start 03/13/21 at 20:15; Stop 03/14/21 at 20:14; Status Cancel Sennosides (Senna) 17.2 mg PRN BID PRN PO CONSTIPATION; Start 03/14/21 at 09:00 Docusate Sodium (Colace) 100 mg PRN DAILY PRN PO HARD STOOLS Last administered on 03/17/21at 09:52; Start 03/14/21 at 09:00 Ondansetron HCl (Zofran) 4 mg PRN Q6HRS PRN IVP NAUSEA/VOMITING; Start 03/14/21 at 09:00 Dextrose (Dextrose 50%-Water Syringe) 12.5 gm PRN Q15MIN PRN IV SEE COMMENTS; Start 03/14/21 at 09:00 Sodium Chloride 1,000 ml @ 100 mls/hr Q10H IV Last administered on 03/16/21at 06:09; Start 03/14/21 at 09:00; Stop 03/16/21 at 10:48; Status DC Acetaminophen (Tylenol) 650 mg PRN Q4HRS PRN PO TEMP OVER 100.4F OR HEADACHE; Start 03/14/21 at 09:00 Heparin Sodium (Porcine) (Heparin Sodium) 5,000 unit Q12HR SQ Last administered on 03/17/21at 08:23; Start 03/14/21 at 09:00 Azithromycin 500 mg/Sodium Chloride 250 ml @ 250 mls/hr Q24H IV Last administered on 03/16/21at 20:44; Start 03/14/21 at 20:00 Ceftriaxone Sodium (Rocephin) 1 gm Q24H IVP Last administered on 03/15/21at 20:51; Start 03/14/21 at 21:00; Stop 03/16/21 at 10:43; Status DC Prochlorperazine Edisylate (Compazine) 10 mg PRN Q6HRS PRN IV NAUSEA/VOMITING- 2ND CHOICE; Start 03/14/21 at 09:00 Oxycodone/ Acetaminophen (Percocet 10/325) 1 tab PRN Q6HRS PRN PO PAIN Last administered on 03/17/21at 04:35; Start 03/14/21 at 20:45 Lactobacillus Rhamnosus (Culturelle) 1 cap BID PO Last administered on 03/17at 08:17; Start 03/15/21 at 21:00 Piperacillin Sod/ Tazobactam Sod (Zosyn Per Pharmacy) 1 each PRN DAILY PRN MC SEE COMMENTS; Start 03/16/21 at 10:45 Piperacillin Sod/ Tazobactam Sod (Zosyn Per Pharmacy) 1 each PRN DAILY PRN MC SEE COMMENTS; Start 03/16/21 at 10:45; Status UNV Piperacillin Sod/ Tazobactam Sod 2.25 gm/Sodium Chloride 50 ml @ 100 mls/hr Q6HRS IV Last administered on 03/17/21at 05:33; Start 03/16/21 at 12:00 Albuterol/ Ipratropium (Duoneb) 3 ml RTQID NEB Last administered on 03/17/21at 07:46; Start 03/16/21 at 12:00 Albuterol Sulfate (Ventolin Neb Soln) 2.5 mg PRN Q4HRS PRN NEB SHORTNESS OF BREATH; Start 03/16/21 at 11:00 Albuterol/ Ipratropium (Duoneb) 3 ml RTQID NEB ; Start 03/16/21 at 12:00; Stop 03/16/21 at 10:51; Status DC Budesonide (Pulmicort) 0.5 mg RTBID NEB Last administered on 03/17/21at 07:46; Start 03/16/21 at 11:00 Methylprednisolone Sodium Succinate (SOLU-Medrol 40MG VIAL) 40 mg 1X ONCE IV Last administered on 03/16/21at 12:10; Start 03/16/21 at 11:15; Stop 03/16/21 at 11:16; Status DC Active Scripts Active Prednisone (Prednisone) 10 Mg Tablet 3 Tab PO DAILY 5 Days Duoneb 0.5-3(2.5) Mg/3 Ml (Albuterol/Ipratropium) 3 Ml Ampul.neb 3 Ml NEB Q4HRS 30 Days Budesonide 0.5 Mg/2 Ml Ampul.neb 0.5 Mg NEB RTBID 30 Days Amox Tr-K Clv 500-125 Mg Tab (Amoxicillin/Potassium Clav) 1 Each Tablet 1 Tab PO BID 5 Days Reported Percocet 10-325 Mg Tablet (Oxycodone/Acetaminophen) 1 Each Tablet 1 Tab PO PRN Q4-6HRS PRN MDD 6 Tablet(s) 5 Days Alprazolam 0.5 Mg Tablet 1 Tab PO DAILY PRN Gabapentin 600 Mg Tablet 600 Mg PO TID Vitals/I & O Vital Sign - Last 24 Hours 03/16/21 03/16/21 03/16/21 03/16/21 11:00 12:09 14:13 15:00 Temp 97.4 97.6 97.4 97.6 Pulse 86 79 Resp 18 18 B/P (MAP) 133/55 (81) 117/59 (78) Pulse Ox 98 100 98 O2 Delivery Nasal Cannula Nasal Cannula Nasal Cannula Nasal Cannula O2 Flow Rate 4.0 4.0 4.0 4.0 03/16/21 03/16/21 03/16/21 03/16/21 16:12 19:46 20:00 20:09 Temp 97.9 97.9 Pulse 89 Resp 18 B/P (MAP) 119/57 (77) Pulse Ox 99 97 100 O2 Delivery Nasal Cannula Nasal Cannula Nasal Cannula Nasal Cannula O2 Flow Rate 3.5 4.0 4.0 3.5 03/16/21 03/16/21 03/17/21 03/17/21 20:10 23:25 07:00 07:46 Temp 98.5 98.7 98.5 98.7 Pulse 74 83 Resp 18 18 B/P (MAP) 115/53 (73) 153/52 (85) Pulse Ox 100 97 96 100 O2 Delivery Nasal Cannula Nasal Cannula Nasal Cannula O2 Flow Rate 3.5 4.0 3.5 03/17/21 07:49 Pulse Ox 100 O2 Delivery Nasal Cannula O2 Flow Rate 3.5 Intake and Output 03/16/21 03/16/21 03/17/21 15:00 23:00 07:00 Intake Total 250 ml 100 ml Balance 250 ml 100 ml Justicifation of Admission Dx: Justifications for Admission: Justification of Admission Dx: Yes Acute Renal Failure: RF Can't Be Managed Outpt DANIE BARCLAY MD Mar 17, 2021 10:05
--- NOTE | 2021-03-17 10:53 | PDOC ---
Renal-Progress Notes Subjective Notes Notes NO NEW COMPLAINTS History of Present Illness Hx of present illness STABLE Vitals Vitals Vital Signs Date Time Temp Pulse Resp B/P (MAP) Pulse Ox O2 Delivery O2 Flow Rate FiO2 03/17/21 08:00 Nasal Cannula 4.0 03/17/21 07:49 100 03/17/21 07:00 98.7 83 18 153/52 (85) 98.7 Weight Weight [ ] I.O. Intake and Output Intake and Output 03/17/21 07:00 Intake Total 350 ml Balance 350 ml IV Total 350 ml # Voids 8 Labs Labs Laboratory Tests Test 03/17/21 04:15 White Blood Count 11.4 x10^3/uL (4.0-11.0) Red Blood Count 3.24 x10^6/uL (3.50-5.40) Hemoglobin 9.9 g/dL (12.0-15.5) Hematocrit 29.5 % (36.0-47.0) Mean Corpuscular Volume 91 fL (79-100) Mean Corpuscular Hemoglobin 30 pg (25-35) Mean Corpuscular Hemoglobin Concent 33 g/dL (31-37) Red Cell Distribution Width 15.0 % (11.5-14.5) Platelet Count 378 x10^3/uL (140-400) Neutrophils (%) (Auto) 90 % (31-73) Lymphocytes (%) (Auto) 5 % (24-48) Monocytes (%) (Auto) 5 % (0-9) Eosinophils (%) (Auto) 0 % (0-3) Basophils (%) (Auto) 0 % (0-3) Neutrophils # (Auto) 10.3 x10^3/uL (1.8-7.7) Lymphocytes # (Auto) 0.5 x10^3/uL (1.0-4.8) Monocytes # (Auto) 0.6 x10^3/uL (0.0-1.1) Eosinophils # (Auto) 0.0 x10^3/uL (0.0-0.7) Basophils # (Auto) 0.0 x10^3/uL (0.0-0.2) Sodium Level 139 mmol/L (136-145) Potassium Level 3.7 mmol/L (3.5-5.1) Chloride Level 104 mmol/L (98-107) Carbon Dioxide Level 29 mmol/L (21-32) Anion Gap 6 (6-14) Blood Urea Nitrogen 12 mg/dL (7-20) Creatinine 0.9 mg/dL (0.6-1.0) Estimated GFR (Cockcroft-Gault) 73.9 Glucose Level 160 mg/dL (70-99) Calcium Level 8.7 mg/dL (8.5-10.1) Magnesium Level 1.6 mg/dL (1.8-2.4) Micro Micro Microbiology 03/14/21 Blood Culture - Preliminary, Resulted NO GROWTH AFTER 3 DAYS Review of Systems Constitutional: yes: weakness, alert Ears/Nose/Throat: Yes: no symptom reported Eyes: Yes: no symptom reported Pulmonary: Yes no symptom reported Cardiovascular: Yes no symptom reported Gastrointestional: Yes: no symptom reported Genitourinary: Yes: no symptom reported Musculoskeletal: Yes: no symptom reported Skin: Yes no symptom reported Psychiatric/Neurological: Yes: confusion Endocrine: Yes: no symptom reported Physical Exam General Appearance: no apparent distress Skin: warm Respiratory: bilateral CTA Heart: S1S2 Abdomen: soft, bowel sounds present Genitourinary: bladder flat Extremities: pulses present Neurology: alert, confused Assessment Assessment IMP ENCEPHALOPATHY SEVERE HYPONATREMIA-NEARLY RESOLVED LEUCOCYTOSIS-IMPROVING PNEUMONIA ACUTE HYPOXIC RESP FAILURE [id number] URINARY RETENTION SUSPECT VOLUME DEPLETION CHRONICALLY ELEVATED BNP HX OF DIASTOLIC CHF-EF OF 55% ELEVATED [id number] POSSIBLE RHABDOMYOLYSIS DECONDITIONING LOW MAG MALNUTRITION PLAN ANTIBIOTICS SONO REVIEWED - NO HYDRO SUPPLEMENTAL O2 F/U CPK LEVEL REPLACE MAG NUTRITIONAL SUPPLEMENTS ENC PO WILL FOLLOW RODOLFO MCFARLANE MD Mar 17, 2021 10:53
[2021-03-17 11:00] VITALS: BP 136/62
[2021-03-17] MEDS ORDERED: MAGNESIUM SULFATE 2GM 50 ML IV ONE (12:00)
--- NOTE | 2021-03-17 13:13 | NUR ---
SW following. Discussed with RN, pt from home with family, 3.5L (RN attempting to titrate), renal diet. COVID-19 negative. Family wants to take pt home with home health - have had [facility] in the past. Pt accepted with [facility]. Awaiting confirmation of discharge. SW will continue to follow.
[2021-03-17 15:23] VITALS: BP 124/56
[2021-03-17 19:00] VITALS: BP 130/60
[2021-03-17] MEDS: AZITHROMYCIN 500 MG in IV NORMAL SALINE 250ML 250 ML IV SCH (20:00)
[2021-03-17] MEDS: ZOLPIDEM 5 MG TABLET. PO PRN (21:04)
[2021-03-17 23:42] VITALS: BP 137/67
[2021-03-18] MEDS: PIPERACILLIN/TAZOBACTAM 2.25 GM in IV NORMAL SALINE 50ML 50 ML IV SCH ×5 (00:09→23:54)
[2021-03-18 02:56] VITALS: BP 148/48
[2021-03-18] MEDS: IPRATRPIUM/ALBUTEROL 0.5/2.5MG 3 ML NEBU. NEB SCH ×4 (07:21→20:15)
[2021-03-18] MEDS: BUDESONIDE 0.5 MG/2 ML NEBU. NEB SCH ×2 (07:21→20:15)
[2021-03-18 08:00] VITALS: BP 123/53
[2021-03-18 08:53] LABS: BASO % 0 % (0-3); EOS # 0.1 x10^3/uL (0.0-0.7); EOS % 1 % (0-3); HEMATOCRIT 32.1 % (36.0-47.0); HEMOGLOBIN 10.6 g/dL (12.0-15.5); LYMPH # 0.7 x10^3/uL (1.0-4.8); LYMPH % 5 % (24-48); MEAN CORPUSCULAR HEMOGLOBIN 30 pg (25-35); MEAN CORPUSCULAR HGB CONC 33 g/dL (31-37); MEAN CORPUSCULAR VOLUME 90 fL (79-100); MONO # 0.6 x10^3/uL (0.0-1.1); MONO % 4 % (0-9); NEUT # 13.8 x10^3/uL (1.8-7.7); NEUT % 90 % (31-73); PLATELET COUNT 444 x10^3/uL (140-400); RED BLOOD COUNT 3.58 x10^6/uL (3.50-5.40); RED CELL DISTRIBUTION WIDTH 15.1 % (11.5-14.5); WHITE BLOOD COUNT 15.3 x10^3/uL (4.0-11.0)
--- NOTE | 2021-03-18 08:54 | PDOC ---
PULMONARY PROGRESS NOTES DATE: 03/18/21 TIME: 08:53 Subjective Patient is lethargic Denies any shortness of breath. Vitals Vital Signs Date Time Temp Pulse Resp B/P (MAP) Pulse Ox O2 Delivery O2 Flow Rate FiO2 03/18/21 07:23 98 Nasal Cannula 2.0 03/18/21 02:56 97.5 81 18 148/48 (81) 97.5 General: No acute distress, Lethargic Lungs: Other (Decreased breath sounds bilaterally) Cardiovascular: S1, S2 Abdomen: Soft, Non-tender, Other Extremities: No Edema Labs Laboratory Tests Test 03/17/21 04:15 White Blood Count 11.4 x10^3/uL (4.0-11.0) Red Blood Count 3.24 x10^6/uL (3.50-5.40) Hemoglobin 9.9 g/dL (12.0-15.5) Hematocrit 29.5 % (36.0-47.0) Mean Corpuscular Volume 91 fL (79-100) Mean Corpuscular Hemoglobin 30 pg (25-35) Mean Corpuscular Hemoglobin Concent 33 g/dL (31-37) Red Cell Distribution Width 15.0 % (11.5-14.5) Platelet Count 378 x10^3/uL (140-400) Neutrophils (%) (Auto) 90 % (31-73) Lymphocytes (%) (Auto) 5 % (24-48) Monocytes (%) (Auto) 5 % (0-9) Eosinophils (%) (Auto) 0 % (0-3) Basophils (%) (Auto) 0 % (0-3) Neutrophils # (Auto) 10.3 x10^3/uL (1.8-7.7) Lymphocytes # (Auto) 0.5 x10^3/uL (1.0-4.8) Monocytes # (Auto) 0.6 x10^3/uL (0.0-1.1) Eosinophils # (Auto) 0.0 x10^3/uL (0.0-0.7) Basophils # (Auto) 0.0 x10^3/uL (0.0-0.2) Sodium Level 139 mmol/L (136-145) Potassium Level 3.7 mmol/L (3.5-5.1) Chloride Level 104 mmol/L (98-107) Carbon Dioxide Level 29 mmol/L (21-32) Anion Gap 6 (6-14) Blood Urea Nitrogen 12 mg/dL (7-20) Creatinine 0.9 mg/dL (0.6-1.0) Estimated GFR (Cockcroft-Gault) 73.9 Glucose Level 160 mg/dL (70-99) Calcium Level 8.7 mg/dL (8.5-10.1) Magnesium Level 1.6 mg/dL (1.8-2.4) Medications Active Scripts Medications Dose Route/Sig Max Daily Dose Days Date Category Prednisone (Prednisone) 10 Mg Tablet 3 Tab PO DAILY 5 09/18/19 Rx Duoneb 0.5-3(2.5) Mg/3 Ml (Albuterol/Ipratropium) 3 Ml Ampul.neb 3 Ml NEB Q4HRS 30 09/18/19 Rx Budesonide 0.5 Mg/2 Ml Ampul.neb 0.5 Mg NEB RTBID 30 09/18/19 Rx Amox Tr-K Clv 500-125 Mg Tab (Amoxicillin/Potassium Clav) 1 Each Tablet 1 Tab PO BID 5 09/18/19 Rx Percocet 10-325 Mg Tablet (Oxycodone/Acetaminophen) 1 Each Tablet 1 Tab PO PRN Q4-6HRS PRN MDD 6 Tablet(s) 5 09/18/19 Reported Alprazolam 0.5 Mg Tablet 1 Tab PO DAILY PRN 09/18/19 Reported Gabapentin 600 Mg Tablet 600 Mg PO TID 09/18/19 Reported Impression . 1. Acute hypoxic respiratory failure likely secondary to suspected gram- negative pneumonia. Could have some component of aspiration as well due to encephalopathy. 2. 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 The patient is very emaciated. 3. Abnormal chest x-ray consistent with pneumonia. 4. Acute kidney injury. 5. Leukocytosis secondary to pneumonia. Plan . 1. Continue broad-spectrum antibiotics. 2. Follow-up chest x-ray in am 3. Deep venous thrombosis prophylaxis. 4. Continue with oxygen, keep saturation 92 and above. 5. bronchodilators. 6. Discussed with RN/ daughter GENTRY FISHMAN MD Mar 18, 2021 08:54
[2021-03-18 09:09] LABS: CALCIUM 8.7 mg/dL (8.5-10.1); CREATININE 0.8 mg/dL (0.6-1.0); GFR 84.6; MAGNESIUM 1.6 mg/dL (1.8-2.4); PHOSPHORUS 1.2 mg/dL (2.6-4.7); POTASSIUM 3.3 mmol/L (3.5-5.1)
[2021-03-18] MEDS: LACTOBACILLUS RHAMNOSUS GG 1 CAPSULE. PO SCH ×2 (09:26→21:09)
[2021-03-18] MEDS: HEPARIN for SUB-Q USE 5,000 UNIT/ML VIAL. SQ SCH ×2 (09:38→21:25)
--- NOTE | 2021-03-18 09:54 | PDOC ---
PROGRESS NOTES Date of Service: DATE: 03/18/21 TIME: 09:54 Chief Complaint Chief Complaint A/P: Acute metabolic and infectious encephalopathy Atypical bilateral pneumonia, likely gram-negative organisms, possible aspiration pneumonia /Extensive bilateral airspace disease. Elevated BNP - likely due to renal failure Acute electrolyte derangementhyponatremia, hypochloremia OBEY due to vasomotor nephropathy CR 4.8 ON ADMIT Severe symptomatic hyponatremia suggestive of low solute intake Elevated creatinine kinase due to rhabdomyolysis Bedbound status Severe protein malnutrition Elevated AST ALT ratio No hydronephrosis. Urinary bladder distention. Heparin for DVT prophylaxis N.p.o. if altered mental status Full code Discussed with RN and ZEINAB Dispo inpatient management as above pulm consult History of Present Illness History of Present Illness Ms Rodriguez is a 74-year-old -[place] female with a history of COPD and smoking, peripheral neuropathy, anxiety, congestive heart failure and anemia who presented with altered mental status and generalized weakness. Patient lives at home with her family. Patient's family called 911 due to patient's generalized weakness and altered mental status. Family states patient has been in bed all day, but had fallen out of the bed at one point a few days prior to presentation. Patient did not want to come to the ED. Upon EMS arrival patient was noted to have an oxygen saturation in the 80s. Creatinine greater than 4 on admit CK urine thousand. Family says that she just sits at home smokes and drinks Coca-Cola all day. In ER patient was switched over to 2 L nasal cannula and still remains 100% on room air. During my exam patient does have mild coug but her lungs are clear bilateral and her heart is regular. She lives at home with her mother and son. She denies contact with persons who have been ill. She does not have any pets. Denies recent traveling. Seen by Pulmonology and nephrology in consultation. Planned to have COVID 19 vaccination on 03/16 03/15: Cr improving She is on 3L NCO2 at rest today. No CP. Still dyspneic, but denies SOB. Developed some brownish sputum. Pulmonology change antibiotics to Zosyn. Creatinine has been improving. 03/17 Cr improving Still dyspneic, but denies SOB. change antibiotics to Zosyn. Acute metabolic and infectious encephalopathy Atypical bilateral pneumonia, likely gram-negative organisms, possible aspiration pneumonia /Extensive bilateral airspace disease. Elevated BNP - likely due to renal failure Acute electrolyte derangementhyponatremia, hypochloremia OBEY due to vasomotor nephropathy CR 4.8 ON ADMIT Severe symptomatic hyponatremia suggestive of low solute intake Elevated creatinine kinase due to rhabdomyolysis Bedbound status Severe protein malnutrition Elevated AST ALT ratio No hydronephrosis. Urinary bladder distention. ELEVATED [id number], CONT TO TREND POSSIBLE RHABDOMYOLYSIS D/W RN Vitals Vitals Vital Signs Date Time Temp Pulse Resp B/P (MAP) Pulse Ox O2 Delivery O2 Flow Rate FiO2 03/18/21 07:23 98 Nasal Cannula 2.0 03/18/21 02:56 97.5 81 18 148/48 (81) 97.5 Physical Exam General: Alert, Oriented X3, Cooperative, mild distress Heart: Regular rate, Normal S1, Normal S2 Lungs: Other (Decreased breath sounds bilaterally) Abdomen: Normal bowel sounds, Soft, No tenderness Extremities: No clubbing, No cyanosis Skin: No breakdown Labs LABS Laboratory Tests Test 03/18/21 08:12 White Blood Count 15.3 x10^3/uL (4.0-11.0) Red Blood Count 3.58 x10^6/uL (3.50-5.40) Hemoglobin 10.6 g/dL (12.0-15.5) Hematocrit 32.1 % (36.0-47.0) Mean Corpuscular Volume 90 fL (79-100) Mean Corpuscular Hemoglobin 30 pg (25-35) Mean Corpuscular Hemoglobin Concent 33 g/dL (31-37) Red Cell Distribution Width 15.1 % (11.5-14.5) Platelet Count 444 x10^3/uL (140-400) Neutrophils (%) (Auto) 90 % (31-73) Lymphocytes (%) (Auto) 5 % (24-48) Monocytes (%) (Auto) 4 % (0-9) Eosinophils (%) (Auto) 1 % (0-3) Basophils (%) (Auto) 0 % (0-3) Neutrophils # (Auto) 13.8 x10^3/uL (1.8-7.7) Lymphocytes # (Auto) 0.7 x10^3/uL (1.0-4.8) Monocytes # (Auto) 0.6 x10^3/uL (0.0-1.1) Eosinophils # (Auto) 0.1 x10^3/uL (0.0-0.7) Basophils # (Auto) 0.0 x10^3/uL (0.0-0.2) Sodium Level 142 mmol/L (136-145) Potassium Level 3.3 mmol/L (3.5-5.1) Chloride Level 102 mmol/L (98-107) Carbon Dioxide Level 36 mmol/L (21-32) Anion Gap 4 (6-14) Blood Urea Nitrogen 6 mg/dL (7-20) Creatinine 0.8 mg/dL (0.6-1.0) Estimated GFR (Cockcroft-Gault) 84.6 Glucose Level 89 mg/dL (70-99) Calcium Level 8.7 mg/dL (8.5-10.1) Phosphorus Level 1.2 mg/dL (2.6-4.7) Magnesium Level 1.6 mg/dL (1.8-2.4) Assessment and Plan Assessmemt and Plan Problems Medical Problems: (1) Acute renal failure Status: Acute (2) Hyponatremia Status: Acute (3) Pneumonia Status: Acute Comment Review of Relevant I have reviewed the following items kelvin (where applicable) has been applied. Labs Laboratory Tests Test 03/17/21 04:15 03/18/21 08:12 White Blood Count 11.4 x10^3/uL (4.0-11.0) 15.3 x10^3/uL (4.0-11.0) Red Blood Count 3.24 x10^6/uL (3.50-5.40) 3.58 x10^6/uL (3.50-5.40) Hemoglobin 9.9 g/dL (12.0-15.5) 10.6 g/dL (12.0-15.5) Hematocrit 29.5 % (36.0-47.0) 32.1 % (36.0-47.0) Mean Corpuscular Volume 91 fL (79-100) 90 fL (79-100) Mean Corpuscular Hemoglobin 30 pg (25-35) 30 pg (25-35) Mean Corpuscular Hemoglobin Concent 33 g/dL (31-37) 33 g/dL (31-37) Red Cell Distribution Width 15.0 % (11.5-14.5) 15.1 % (11.5-14.5) Platelet Count 378 x10^3/uL (140-400) 444 x10^3/uL (140-400) Neutrophils (%) (Auto) 90 % (31-73) 90 % (31-73) Lymphocytes (%) (Auto) 5 % (24-48) 5 % (24-48) Monocytes (%) (Auto) 5 % (0-9) 4 % (0-9) Eosinophils (%) (Auto) 0 % (0-3) 1 % (0-3) Basophils (%) (Auto) 0 % (0-3) 0 % (0-3) Neutrophils # (Auto) 10.3 x10^3/uL (1.8-7.7) 13.8 x10^3/uL (1.8-7.7) Lymphocytes # (Auto) 0.5 x10^3/uL (1.0-4.8) 0.7 x10^3/uL (1.0-4.8) Monocytes # (Auto) 0.6 x10^3/uL (0.0-1.1) 0.6 x10^3/uL (0.0-1.1) Eosinophils # (Auto) 0.0 x10^3/uL (0.0-0.7) 0.1 x10^3/uL (0.0-0.7) Basophils # (Auto) 0.0 x10^3/uL (0.0-0.2) 0.0 x10^3/uL (0.0-0.2) Sodium Level 139 mmol/L (136-145) 142 mmol/L (136-145) Potassium Level 3.7 mmol/L (3.5-5.1) 3.3 mmol/L (3.5-5.1) Chloride Level 104 mmol/L (98-107) 102 mmol/L (98-107) Carbon Dioxide Level 29 mmol/L (21-32) 36 mmol/L (21-32) Anion Gap 6 (6-14) 4 (6-14) Blood Urea Nitrogen 12 mg/dL (7-20) 6 mg/dL (7-20) Creatinine 0.9 mg/dL (0.6-1.0) 0.8 mg/dL (0.6-1.0) Estimated GFR (Cockcroft-Gault) 73.9 84.6 Glucose Level 160 mg/dL (70-99) 89 mg/dL (70-99) Calcium Level 8.7 mg/dL (8.5-10.1) 8.7 mg/dL (8.5-10.1) Magnesium Level 1.6 mg/dL (1.8-2.4) 1.6 mg/dL (1.8-2.4) Phosphorus Level 1.2 mg/dL (2.6-4.7) Laboratory Tests Test 03/18/21 08:12 White Blood Count 15.3 x10^3/uL (4.0-11.0) Red Blood Count 3.58 x10^6/uL (3.50-5.40) Hemoglobin 10.6 g/dL (12.0-15.5) Hematocrit 32.1 % (36.0-47.0) Mean Corpuscular Volume 90 fL (79-100) Mean Corpuscular Hemoglobin 30 pg (25-35) Mean Corpuscular Hemoglobin Concent 33 g/dL (31-37) Red Cell Distribution Width 15.1 % (11.5-14.5) Platelet Count 444 x10^3/uL (140-400) Neutrophils (%) (Auto) 90 % (31-73) Lymphocytes (%) (Auto) 5 % (24-48) Monocytes (%) (Auto) 4 % (0-9) Eosinophils (%) (Auto) 1 % (0-3) Basophils (%) (Auto) 0 % (0-3) Neutrophils # (Auto) 13.8 x10^3/uL (1.8-7.7) Lymphocytes # (Auto) 0.7 x10^3/uL (1.0-4.8) Monocytes # (Auto) 0.6 x10^3/uL (0.0-1.1) Eosinophils # (Auto) 0.1 x10^3/uL (0.0-0.7) Basophils # (Auto) 0.0 x10^3/uL (0.0-0.2) Sodium Level 142 mmol/L (136-145) Potassium Level 3.3 mmol/L (3.5-5.1) Chloride Level 102 mmol/L (98-107) Carbon Dioxide Level 36 mmol/L (21-32) Anion Gap 4 (6-14) Blood Urea Nitrogen 6 mg/dL (7-20) Creatinine 0.8 mg/dL (0.6-1.0) Estimated GFR (Cockcroft-Gault) 84.6 Glucose Level 89 mg/dL (70-99) Calcium Level 8.7 mg/dL (8.5-10.1) Phosphorus Level 1.2 mg/dL (2.6-4.7) Magnesium Level 1.6 mg/dL (1.8-2.4) Microbiology 03/14/21 Blood Culture - Preliminary, Resulted NO GROWTH AFTER 4 DAYS Medications Current Medications Sodium Chloride 1,000 ml @ 1,000 mls/hr 1X ONCE IV Last administered on 03/13/21at 20:00; Start 03/13/21 at 20:15; Stop 03/13/21 at 21:14; Status DC Ceftriaxone Sodium (Rocephin) 1 gm 1X ONCE IVP Last administered on 03/13/21at 21:16; Start 03/13/21 at 20:30; Stop 03/13/21 at 20:31; Status DC Azithromycin 250 ml @ 250 mls/hr 1X ONCE IV Last administered on 03/13/21at 20:30; Start 03/13/21 at 20:30; Stop 03/13/21 at 21:29; Status DC Ondansetron HCl (Zofran) 4 mg PRN Q8HRS PRN IVP NAUSEA/VOMITING; Start 03/13/21 at 20:15; Stop 03/14/21 at 20:14; Status Cancel Acetaminophen (Tylenol) 650 mg PRN Q4HRS PRN PO FEVER > 100.3'F; Start 03/13/21 at 20:15; Stop 03/14/21 at 20:14; Status Cancel Sennosides (Senna) 17.2 mg PRN BID PRN PO CONSTIPATION; Start 03/14/21 at 09:00 Docusate Sodium (Colace) 100 mg PRN DAILY PRN PO HARD STOOLS Last administered on 03/17/21at 09:52; Start 03/14/21 at 09:00 Ondansetron HCl (Zofran) 4 mg PRN Q6HRS PRN IVP NAUSEA/VOMITING; Start 03/14/21 at 09:00 Dextrose (Dextrose 50%-Water Syringe) 12.5 gm PRN Q15MIN PRN IV SEE COMMENTS; Start 03/14/21 at 09:00 Sodium Chloride 1,000 ml @ 100 mls/hr Q10H IV Last administered on 03/16/21at 06:09; Start 03/14/21 at 09:00; Stop 03/16/21 at 10:48; Status DC Acetaminophen (Tylenol) 650 mg PRN Q4HRS PRN PO TEMP OVER 100.4F OR HEADACHE; Start 03/14/21 at 09:00 Heparin Sodium (Porcine) (Heparin Sodium) 5,000 unit Q12HR SQ Last administered on 03/18/21at 09:38; Start 03/14/21 at 09:00 Azithromycin 500 mg/Sodium Chloride 250 ml @ 250 mls/hr Q24H IV Last administered on 03/17/21at 20:00; Start 03/14/21 at 20:00 Ceftriaxone Sodium (Rocephin) 1 gm Q24H IVP Last administered on 03/15/21at 20:51; Start 03/14/21 at 21:00; Stop 03/16/21 at 10:43; Status DC Prochlorperazine Edisylate (Compazine) 10 mg PRN Q6HRS PRN IV NAUSEA/VOMITING- 2ND CHOICE; Start 03/14/21 at 09:00 Oxycodone/ Acetaminophen (Percocet 10/325) 1 tab PRN Q6HRS PRN PO PAIN Last administered on 03/17/21at 21:07; Start 03/14/21 at 20:45 Lactobacillus Rhamnosus (Culturelle) 1 cap BID PO Last administered on 03/18/21at 09:26; Start 03/15/21 at 21:00 Piperacillin Sod/ Tazobactam Sod (Zosyn Per Pharmacy) 1 each PRN DAILY PRN MC SEE COMMENTS; Start 03/16/21 at 10:45 Piperacillin Sod/ Tazobactam Sod (Zosyn Per Pharmacy) 1 each PRN DAILY PRN MC SEE COMMENTS; Start 03/16/21 at 10:45; Status UNV Piperacillin Sod/ Tazobactam Sod 2.25 gm/Sodium Chloride 50 ml @ 100 mls/hr Q6HRS IV Last administered on 03/18/21at 05:33; Start 03/16/21 at 12:00 Albuterol/ Ipratropium (Duoneb) 3 ml RTQID NEB Last administered on 03/18/21at 07:21; Start 03/16/21 at 12:00 Albuterol Sulfate (Ventolin Neb Soln) 2.5 mg PRN Q4HRS PRN NEB SHORTNESS OF BREATH; Start 03/16/21 at 11:00 Albuterol/ Ipratropium (Duoneb) 3 ml RTQID NEB ; Start 03/16/21 at 12:00; Stop 03/16/21 at 10:51; Status DC Budesonide (Pulmicort) 0.5 mg RTBID NEB Last administered on 03/18/21at 07:21; Start 03/16/21 at 11:00 Methylprednisolone Sodium Succinate (SOLU-Medrol 40MG VIAL) 40 mg 1X ONCE IV Last administered on 03/16/21at 12:10; Start 03/16/21 at 11:15; Stop 03/16/21 at 11:16; Status DC Magnesium Sulfate 50 ml @ 25 mls/hr 1X ONCE IV Last administered on 03/17/21at 11:47; Start 03/17/21 at 12:00; Stop 03/17/21 at 13:59; Status DC Zolpidem Tartrate (Ambien) 5 mg PRN QHS PRN PO INSOMNIA Last administered on 03/17/21at 21:04; Start 03/17/21 at 20:45 Active Scripts Active Prednisone (Prednisone) 10 Mg Tablet 3 Tab PO DAILY 5 Days Duoneb 0.5-3(2.5) Mg/3 Ml (Albuterol/Ipratropium) 3 Ml Ampul.neb 3 Ml NEB Q4HRS 30 Days Budesonide 0.5 Mg/2 Ml Ampul.neb 0.5 Mg NEB RTBID 30 Days Amox Tr-K Clv 500-125 Mg Tab (Amoxicillin/Potassium Clav) 1 Each Tablet 1 Tab PO BID 5 Days Reported Percocet 10-325 Mg Tablet (Oxycodone/Acetaminophen) 1 Each Tablet 1 Tab PO PRN Q4-6HRS PRN MDD 6 Tablet(s) 5 Days Alprazolam 0.5 Mg Tablet 1 Tab PO DAILY PRN Gabapentin 600 Mg Tablet 600 Mg PO TID Vitals/I & O Vital Sign - Last 24 Hours 03/17/21 03/17/21 03/17/21 03/17/21 11:00 11:42 15:23 16:02 Temp 98.3 98.2 98.3 98.2 Pulse 87 94 Resp 18 18 B/P (MAP) 136/62 (86) 124/56 (78) Pulse Ox 96 97 97 97 O2 Delivery Nasal Cannula Nasal Cannula O2 Flow Rate 2.0 2.0 03/17/21 03/17/21 03/17/21 03/17/21 19:00 20:00 20:39 23:42 Temp 97.6 97.7 97.6 97.7 Pulse 89 76 Resp 18 18 B/P (MAP) 130/60 (83) 137/67 (90) Pulse Ox 94 99 94 O2 Delivery Nasal Cannula Nasal Cannula Nasal Cannula Nasal Cannula O2 Flow Rate 2.0 2.0 2.0 2.0 03/18/21 03/18/21 02:56 07:23 Temp 97.5 97.5 Pulse 81 Resp 18 B/P (MAP) 148/48 (81) Pulse Ox 98 98 O2 Delivery Nasal Cannula Nasal Cannula O2 Flow Rate 2.0 2.0 Intake and Output 03/17/21 03/17/21 03/18/21 15:00 23:00 07:00 Intake Total 400 ml 120 ml 350 ml Balance 400 ml 120 ml 350 ml Justicifation of Admission Dx: Justifications for Admission: Justification of Admission Dx: Yes Acute Renal Failure: RF Can't Be Managed Outpt DANIE BARCLAY MD Mar 18, 2021 09:54
[2021-03-18] MEDS: oxyCODONE/APAP 10/325 1 TAB TABLET PO PRN ×2 (10:40→17:49)
--- NOTE | 2021-03-18 10:40 | PDOC ---
Renal-Progress Notes Subjective Notes Notes NO NEW COMPLAINTS History of Present Illness Hx of present illness STABLE Vitals Vitals Vital Signs Date Time Temp Pulse Resp B/P (MAP) Pulse Ox O2 Delivery O2 Flow Rate FiO2 03/18/21 07:23 98 Nasal Cannula 2.0 03/18/21 02:56 97.5 81 18 148/48 (81) 97.5 Weight Weight [ ] I.O. Intake and Output Intake and Output 03/18/21 07:00 Intake Total 870 ml Balance 870 ml Intake Oral 520 ml IV Total 350 ml # Voids 7 Labs Labs Laboratory Tests Test 03/18/21 08:12 White Blood Count 15.3 x10^3/uL (4.0-11.0) Red Blood Count 3.58 x10^6/uL (3.50-5.40) Hemoglobin 10.6 g/dL (12.0-15.5) Hematocrit 32.1 % (36.0-47.0) Mean Corpuscular Volume 90 fL (79-100) Mean Corpuscular Hemoglobin 30 pg (25-35) Mean Corpuscular Hemoglobin Concent 33 g/dL (31-37) Red Cell Distribution Width 15.1 % (11.5-14.5) Platelet Count 444 x10^3/uL (140-400) Neutrophils (%) (Auto) 90 % (31-73) Lymphocytes (%) (Auto) 5 % (24-48) Monocytes (%) (Auto) 4 % (0-9) Eosinophils (%) (Auto) 1 % (0-3) Basophils (%) (Auto) 0 % (0-3) Neutrophils # (Auto) 13.8 x10^3/uL (1.8-7.7) Lymphocytes # (Auto) 0.7 x10^3/uL (1.0-4.8) Monocytes # (Auto) 0.6 x10^3/uL (0.0-1.1) Eosinophils # (Auto) 0.1 x10^3/uL (0.0-0.7) Basophils # (Auto) 0.0 x10^3/uL (0.0-0.2) Sodium Level 142 mmol/L (136-145) Potassium Level 3.3 mmol/L (3.5-5.1) Chloride Level 102 mmol/L (98-107) Carbon Dioxide Level 36 mmol/L (21-32) Anion Gap 4 (6-14) Blood Urea Nitrogen 6 mg/dL (7-20) Creatinine 0.8 mg/dL (0.6-1.0) Estimated GFR (Cockcroft-Gault) 84.6 Glucose Level 89 mg/dL (70-99) Calcium Level 8.7 mg/dL (8.5-10.1) Phosphorus Level 1.2 mg/dL (2.6-4.7) Magnesium Level 1.6 mg/dL (1.8-2.4) Micro Micro Microbiology 03/14/21 Blood Culture - Preliminary, Resulted NO GROWTH AFTER 4 DAYS Review of Systems Constitutional: yes: weakness, alert Ears/Nose/Throat: Yes: no symptom reported Eyes: Yes: no symptom reported Pulmonary: Yes no symptom reported Cardiovascular: Yes no symptom reported Gastrointestional: Yes: no symptom reported Genitourinary: Yes: no symptom reported Musculoskeletal: Yes: no symptom reported Skin: Yes no symptom reported Psychiatric/Neurological: Yes: confusion Endocrine: Yes: no symptom reported Physical Exam General Appearance: no apparent distress Skin: warm Respiratory: bilateral CTA Heart: S1S2 Abdomen: soft, bowel sounds present Genitourinary: bladder flat Extremities: pulses present Neurology: alert, confused Assessment Assessment IMP ENCEPHALOPATHY SEVERE HYPONATREMIA-NEARLY RESOLVED LEUCOCYTOSIS-IMPROVING PNEUMONIA ACUTE HYPOXIC RESP FAILURE [id number] URINARY RETENTION SUSPECT VOLUME DEPLETION CHRONICALLY ELEVATED BNP HX OF DIASTOLIC CHF-EF OF 55% ELEVATED [id number] POSSIBLE RHABDOMYOLYSIS DECONDITIONING LOW MAG, K AND PO4 MALNUTRITION PLAN ANTIBIOTICS SONO REVIEWED - NO HYDRO SUPPLEMENTAL O2 F/U CPK LEVEL REPLACE ELECTROLYTES NUTRITIONAL SUPPLEMENTS ENC PO WILL FOLLOW RODOLFO MCFARLANE MD Mar 18, 2021 10:40
[2021-03-18] MEDS ORDERED: MAGNESIUM SULFATE 2GM 50 ML IV ONE (11:00)
[2021-03-18] MEDS ORDERED: SODIUM PHOSPHATE 15 MMOL in IV NORMAL SALINE 100ML 100 ML IV ONE (11:00)
[2021-03-18 12:00] VITALS: BP 125/59
[2021-03-18] MEDS: POTASSIUM CHLORIDE 10MEQ 100 ML IV SCH ×4 (13:00→21:09)
[2021-03-18] MEDS: ACETAMINOPHEN 325 MG TABLET. PO PRN ×2 (13:38→21:09)
--- NOTE | 2021-03-18 14:21 | PDOC ---
PROGRESS NOTES Date of Service: DATE: 03/18/21 TIME: 14:21 Chief Complaint Chief Complaint A/P: Acute metabolic and infectious encephalopathy Atypical bilateral pneumonia, likely gram-negative organisms, possible aspiration pneumonia /Extensive bilateral airspace disease. Elevated BNP - likely due to renal failure Acute electrolyte derangementhyponatremia, hypochloremia OBEY due to vasomotor nephropathy CR 4.8 ON ADMIT Severe symptomatic hyponatremia suggestive of low solute intake Elevated creatinine kinase due to rhabdomyolysis Bedbound status Severe protein malnutrition Elevated AST ALT ratio No hydronephrosis. Urinary bladder distention. Heparin for DVT prophylaxis N.p.o. if altered mental status Full code Discussed with RN and ZEINAB Dispo inpatient management as above pulm consult History of Present Illness History of Present Illness Ms Noe is a 74-year-old -[place]er female with a history of COPD and smoking, peripheral neuropathy, anxiety, congestive heart failure and anemia who presented with altered mental status and generalized weakness. Patient lives at home with her family. Patient's family called 911 due to patient's generalized weakness and altered mental status. Family states patient has been in bed all day, but had fallen out of the bed at one point a few days prior to presentation. Patient did not want to come to the ED. Upon EMS arrival patient was noted to have an oxygen saturation in the 80s. Creatinine greater than 4 on admit CK urine thousand. Family says that she just sits at home smokes and drinks Coca-Cola all day. In ER patient was switched over to 2 L nasal cannula and still remains 100% on room air. During my exam patient does have mild coug but her lungs are clear bilateral and her heart is regular. She lives at home with her mother and son. She denies contact with persons who have been ill. She does not have any pets. Denies recent traveling. Seen by Pulmonology and nephrology in consultation. Planned to have COVID 19 vaccination on 03/16 03/15: Cr improving She is on 3L NCO2 at rest today. No CP. Still dyspneic, but denies SOB. Developed some brownish sputum. Pulmonology change antibiotics to Zosyn. Creatinine has been improving. 03/17 Cr improving Still dyspneic, but denies SOB. change antibiotics to Zosyn. Acute metabolic and infectious encephalopathy Atypical bilateral pneumonia, likely gram-negative organisms, possible aspiration pneumonia /Extensive bilateral airspace disease. Elevated BNP - likely due to renal failure Acute electrolyte derangementhyponatremia, hypochloremia OBEY due to vasomotor nephropathy CR 4.8 ON ADMIT Severe symptomatic hyponatremia suggestive of low solute intake Elevated creatinine kinase due to rhabdomyolysis Bedbound status Severe protein malnutrition Elevated AST ALT ratio No hydronephrosis. Urinary bladder distention. ELEVATED [id number], CONT TO TREND POSSIBLE RHABDOMYOLYSIS D/W RN 03/18 Cr improving Still dyspneic, but denies SOB. change antibiotics to Zosyn. Acute metabolic and infectious encephalopathy Atypical bilateral pneumonia, likely gram-negative organisms, possible a spiration pneumonia /Extensive bilateral airspace disease. Elevated BNP - likely due to renal failure Acute electrolyte derangementhyponatremia, hypochloremia OBEY due to vasomotor nephropathy CR 4.8 ON ADMIT Severe symptomatic hyponatremia suggestive of low solute intake Elevated creatinine kinase due to rhabdomyolysis Bedbound status Severe protein malnutrition Elevated AST ALT ratio No hydronephrosis. Urinary bladder distention. ELEVATED [id number], CONT TO TREND POSSIBLE RHABDOMYOLYSIS D/W RN Vitals Vitals Vital Signs Date Time Temp Pulse Resp B/P (MAP) Pulse Ox O2 Delivery O2 Flow Rate FiO2 03/18/21 12:00 98.3 80 18 125/59 (81) 98 Nasal Cannula 2.0 98.3 Physical Exam General: Alert, Oriented X3, Cooperative, mild distress Heart: Regular rate, Normal S1, Normal S2 Lungs: Other (Decreased breath sounds bilaterally) Abdomen: Normal bowel sounds, Soft, No tenderness Extremities: No clubbing, No cyanosis Skin: No breakdown Labs LABS PATIENT: JANIYA NOE ACCOUNT: [id number] : 1945 LOCATION: ER AGE: 75 SEX: F EXAM STATUS: REG ER ORD. PHYSICIAN: SHREYAS CALLE DO REASON: hypoxia PROCEDURE: CHEST AP ONLY Exam: Chest one view INDICATION: Hypoxia TECHNIQUE: Frontal view of the chest Comparisons: 09/21/2019 FINDINGS: The cardiomediastinal silhouette and pulmonary vessels are within normal limits. Extensive bilateral airspace disease greater in the right upper lung. No pleural effusion. IMPRESSION: Extensive bilateral airspace disease. Electronically signed by: Chandrika Schmitz MD (03/13/2021 7:45 PM) [facility] DICTATED and SIGNED BY: CHANDRIKA SCHMITZ MD DATE: 03/13/21 [id number] Laboratory Tests Test 03/18/21 08:12 White Blood Count 15.3 x10^3/uL (4.0-11.0) Red Blood Count 3.58 x10^6/uL (3.50-5.40) Hemoglobin 10.6 g/dL (12.0-15.5) Hematocrit 32.1 % (36.0-47.0) Mean Corpuscular Volume 90 fL (79-100) Mean Corpuscular Hemoglobin 30 pg (25-35) Mean Corpuscular Hemoglobin Concent 33 g/dL (31-37) Red Cell Distribution Width 15.1 % (11.5-14.5) Platelet Count 444 x10^3/uL (140-400) Neutrophils (%) (Auto) 90 % (31-73) Lymphocytes (%) (Auto) 5 % (24-48) Monocytes (%) (Auto) 4 % (0-9) Eosinophils (%) (Auto) 1 % (0-3) Basophils (%) (Auto) 0 % (0-3) Neutrophils # (Auto) 13.8 x10^3/uL (1.8-7.7) Lymphocytes # (Auto) 0.7 x10^3/uL (1.0-4.8) Monocytes # (Auto) 0.6 x10^3/uL (0.0-1.1) Eosinophils # (Auto) 0.1 x10^3/uL (0.0-0.7) Basophils # (Auto) 0.0 x10^3/uL (0.0-0.2) Sodium Level 142 mmol/L (136-145) Potassium Level 3.3 mmol/L (3.5-5.1) Chloride Level 102 mmol/L (98-107) Carbon Dioxide Level 36 mmol/L (21-32) Anion Gap 4 (6-14) Blood Urea Nitrogen 6 mg/dL (7-20) Creatinine 0.8 mg/dL (0.6-1.0) Estimated GFR (Cockcroft-Gault) 84.6 Glucose Level 89 mg/dL (70-99) Calcium Level 8.7 mg/dL (8.5-10.1) Phosphorus Level 1.2 mg/dL (2.6-4.7) Magnesium Level 1.6 mg/dL (1.8-2.4) Assessment and Plan Assessmemt and Plan Problems Medical Problems: (1) Acute renal failure Status: Acute (2) Hyponatremia Status: Acute (3) Pneumonia Status: Acute Comment Review of Relevant I have reviewed the following items kelvin (where applicable) has been applied. Labs Laboratory Tests Test 03/17/21 04:15 03/18/21 08:12 White Blood Count 11.4 x10^3/uL (4.0-11.0) 15.3 x10^3/uL (4.0-11.0) Red Blood Count 3.24 x10^6/uL (3.50-5.40) 3.58 x10^6/uL (3.50-5.40) Hemoglobin 9.9 g/dL (12.0-15.5) 10.6 g/dL (12.0-15.5) Hematocrit 29.5 % (36.0-47.0) 32.1 % (36.0-47.0) Mean Corpuscular Volume 91 fL (79-100) 90 fL (79-100) Mean Corpuscular Hemoglobin 30 pg (25-35) 30 pg (25-35) Mean Corpuscular Hemoglobin Concent 33 g/dL (31-37) 33 g/dL (31-37) Red Cell Distribution Width 15.0 % (11.5-14.5) 15.1 % (11.5-14.5) Platelet Count 378 x10^3/uL (140-400) 444 x10^3/uL (140-400) Neutrophils (%) (Auto) 90 % (31-73) 90 % (31-73) Lymphocytes (%) (Auto) 5 % (24-48) 5 % (24-48) Monocytes (%) (Auto) 5 % (0-9) 4 % (0-9) Eosinophils (%) (Auto) 0 % (0-3) 1 % (0-3) Basophils (%) (Auto) 0 % (0-3) 0 % (0-3) Neutrophils # (Auto) 10.3 x10^3/uL (1.8-7.7) 13.8 x10^3/uL (1.8-7.7) Lymphocytes # (Auto) 0.5 x10^3/uL (1.0-4.8) 0.7 x10^3/uL (1.0-4.8) Monocytes # (Auto) 0.6 x10^3/uL (0.0-1.1) 0.6 x10^3/uL (0.0-1.1) Eosinophils # (Auto) 0.0 x10^3/uL (0.0-0.7) 0.1 x10^3/uL (0.0-0.7) Basophils # (Auto) 0.0 x10^3/uL (0.0-0.2) 0.0 x10^3/uL (0.0-0.2) Sodium Level 139 mmol/L (136-145) 142 mmol/L (136-145) Potassium Level 3.7 mmol/L (3.5-5.1) 3.3 mmol/L (3.5-5.1) Chloride Level 104 mmol/L (98-107) 102 mmol/L (98-107) Carbon Dioxide Level 29 mmol/L (21-32) 36 mmol/L (21-32) Anion Gap 6 (6-14) 4 (6-14) Blood Urea Nitrogen 12 mg/dL (7-20) 6 mg/dL (7-20) Creatinine 0.9 mg/dL (0.6-1.0) 0.8 mg/dL (0.6-1.0) Estimated GFR (Cockcroft-Gault) 73.9 84.6 Glucose Level 160 mg/dL (70-99) 89 mg/dL (70-99) Calcium Level 8.7 mg/dL (8.5-10.1) 8.7 mg/dL (8.5-10.1) Magnesium Level 1.6 mg/dL (1.8-2.4) 1.6 mg/dL (1.8-2.4) Phosphorus Level 1.2 mg/dL (2.6-4.7) Laboratory Tests Test 03/18/21 08:12 White Blood Count 15.3 x10^3/uL (4.0-11.0) Red Blood Count 3.58 x10^6/uL (3.50-5.40) Hemoglobin 10.6 g/dL (12.0-15.5) Hematocrit 32.1 % (36.0-47.0) Mean Corpuscular Volume 90 fL (79-100) Mean Corpuscular Hemoglobin 30 pg (25-35) Mean Corpuscular Hemoglobin Concent 33 g/dL (31-37) Red Cell Distribution Width 15.1 % (11.5-14.5) Platelet Count 444 x10^3/uL (140-400) Neutrophils (%) (Auto) 90 % (31-73) Lymphocytes (%) (Auto) 5 % (24-48) Monocytes (%) (Auto) 4 % (0-9) Eosinophils (%) (Auto) 1 % (0-3) Basophils (%) (Auto) 0 % (0-3) Neutrophils # (Auto) 13.8 x10^3/uL (1.8-7.7) Lymphocytes # (Auto) 0.7 x10^3/uL (1.0-4.8) Monocytes # (Auto) 0.6 x10^3/uL (0.0-1.1) Eosinophils # (Auto) 0.1 x10^3/uL (0.0-0.7) Basophils # (Auto) 0.0 x10^3/uL (0.0-0.2) Sodium Level 142 mmol/L (136-145) Potassium Level 3.3 mmol/L (3.5-5.1) Chloride Level 102 mmol/L (98-107) Carbon Dioxide Level 36 mmol/L (21-32) Anion Gap 4 (6-14) Blood Urea Nitrogen 6 mg/dL (7-20) Creatinine 0.8 mg/dL (0.6-1.0) Estimated GFR (Cockcroft-Gault) 84.6 Glucose Level 89 mg/dL (70-99) Calcium Level 8.7 mg/dL (8.5-10.1) Phosphorus Level 1.2 mg/dL (2.6-4.7) Magnesium Level 1.6 mg/dL (1.8-2.4) Microbiology 03/14/21 Blood Culture - Preliminary, Resulted NO GROWTH AFTER 4 DAYS Medications Current Medications Sodium Chloride 1,000 ml @ 1,000 mls/hr 1X ONCE IV Last administered on 03/13/21at 20:00; Start 03/13/21 at 20:15; Stop 03/13/21 at 21:14; Status DC Ceftriaxone Sodium (Rocephin) 1 gm 1X ONCE IVP Last administered on 03/13/21at 21:16; Start 03/13/21 at 20:30; Stop 03/13/21 at 20:31; Status DC Azithromycin 250 ml @ 250 mls/hr 1X ONCE IV Last administered on 03/13/21at 20:30; Start 03/13/21 at 20:30; Stop 03/13/21 at 21:29; Status DC Ondansetron HCl (Zofran) 4 mg PRN Q8HRS PRN IVP NAUSEA/VOMITING; Start 03/13/21 at 20:15; Stop 03/14/21 at 20:14; Status Cancel Acetaminophen (Tylenol) 650 mg PRN Q4HRS PRN PO FEVER > 100.3'F; Start 03/13/21 at 20:15; Stop 03/14/21 at 20:14; Status Cancel Sennosides (Senna) 17.2 mg PRN BID PRN PO CONSTIPATION; Start 03/14/21 at 09:00 Docusate Sodium (Colace) 100 mg PRN DAILY PRN PO HARD STOOLS Last administered on 03/17/21at 09:52; Start 03/14/21 at 09:00 Ondansetron HCl (Zofran) 4 mg PRN Q6HRS PRN IVP NAUSEA/VOMITING; Start 03/14/21 at 09:00 Dextrose (Dextrose 50%-Water Syringe) 12.5 gm PRN Q15MIN PRN IV SEE COMMENTS; Start 03/14/21 at 09:00 Sodium Chloride 1,000 ml @ 100 mls/hr Q10H IV Last administered on 03/16/21at 06:09; Start 03/14/21 at 09:00; Stop 03/16/21 at 10:48; Status DC Acetaminophen (Tylenol) 650 mg PRN Q4HRS PRN PO TEMP OVER 100.4F OR HEADACHE Last administered on 03/18/21at 13:38; Start 03/14/21 at 09:00 Heparin Sodium (Porcine) (Heparin Sodium) 5,000 unit Q12HR SQ Last administered on 03/18/21at 09:38; Start 03/14/21 at 09:00 Azithromycin 500 mg/Sodium Chloride 250 ml @ 250 mls/hr Q24H IV Last administered on 03/17/21at 20:00; Start 03/14/21 at 20:00 Ceftriaxone Sodium (Rocephin) 1 gm Q24H IVP Last administered on 03/15/21at 20:51; Start 03/14/21 at 21:00; Stop 03/16/21 at 10:43; Status DC Prochlorperazine Edisylate (Compazine) 10 mg PRN Q6HRS PRN IV NAUSEA/VOMITING- 2ND CHOICE; Start 03/14/21 at 09:00 Oxycodone/ Acetaminophen (Percocet 10/325) 1 tab PRN Q6HRS PRN PO PAIN Last administered on 03/18/21at 10:40; Start 03/14/21 at 20:45 Lactobacillus Rhamnosus (Culturelle) 1 cap BID PO Last administered on 03/18/21at 09:26; Start 03/15/21 at 21:00 Piperacillin Sod/ Tazobactam Sod (Zosyn Per Pharmacy) 1 each PRN DAILY PRN MC SEE COMMENTS; Start 03/16/21 at 10:45 Piperacillin Sod/ Tazobactam Sod (Zosyn Per Pharmacy) 1 each PRN DAILY PRN MC SEE COMMENTS; Start 03/16/21 at 10:45; Status UNV Piperacillin Sod/ Tazobactam Sod 2.25 gm/Sodium Chloride 50 ml @ 100 mls/hr Q6HRS IV Last administered on 03/18/21at 11:57; Start 03/16/21 at 12:00 Albuterol/ Ipratropium (Duoneb) 3 ml RTQID NEB Last administered on 03/18/21at 11:46; Start 03/16/21 at 12:00 Albuterol Sulfate (Ventolin Neb Soln) 2.5 mg PRN Q4HRS PRN NEB SHORTNESS OF BREATH; Start 03/16/21 at 11:00 Albuterol/ Ipratropium (Duoneb) 3 ml RTQID NEB ; Start 03/16/21 at 12:00; Stop 03/16/21 at 10:51; Status DC Budesonide (Pulmicort) 0.5 mg RTBID NEB Last administered on 03/18/21at 07:21; Start 03/16/21 at 11:00 Methylprednisolone Sodium Succinate (SOLU-Medrol 40MG VIAL) 40 mg 1X ONCE IV Last administered on 03/16/21at 12:10; Start 03/16/21 at 11:15; Stop 03/16/21 at 11:16; Status DC Magnesium Sulfate 50 ml @ 25 mls/hr 1X ONCE IV Last administered on 03/17/21at 11:47; Start 03/17/21 at 12:00; Stop 03/17/21 at 13:59; Status DC Zolpidem Tartrate (Ambien) 5 mg PRN QHS PRN PO INSOMNIA Last administered on 03/17/21at 21:04; Start 03/17/21 at 20:45 Magnesium Sulfate 50 ml @ 25 mls/hr 1X ONCE IV ; Start 03/18/21 at 11:00; Stop 03/18/21 at 12:59; Status DC Potassium Chloride/Water 100 ml @ 100 mls/hr Q1H IV Last administered on 03/18/21at 13:40; Start 03/18/21 at 11:00; Stop 03/18/21 at 14:59 Sodium Phosphate 15 mmol/Sodium Chloride 105 ml @ 105 mls/hr 1X ONCE IV Last administered on 03/18/21at 11:57; Start 03/18/21 at 11:00; Stop 03/18/21 at 11:59; Status DC Active Scripts Active Prednisone (Prednisone) 10 Mg Tablet 3 Tab PO DAILY 5 Days Duoneb 0.5-3(2.5) Mg/3 Ml (Albuterol/Ipratropium) 3 Ml Ampul.neb 3 Ml NEB Q4HRS 30 Days Budesonide 0.5 Mg/2 Ml Ampul.neb 0.5 Mg NEB RTBID 30 Days Amox Tr-K Clv 500-125 Mg Tab (Amoxicillin/Potassium Clav) 1 Each Tablet 1 Tab PO BID 5 Days Reported Percocet 10-325 Mg Tablet (Oxycodone/Acetaminophen) 1 Each Tablet 1 Tab PO PRN Q4-6HRS PRN MDD 6 Tablet(s) 5 Days Alprazolam 0.5 Mg Tablet 1 Tab PO DAILY PRN Gabapentin 600 Mg Tablet 600 Mg PO TID Vitals/I & O Vital Sign - Last 24 Hours 03/17/21 03/17/21 03/17/21 03/17/21 15:23 16:02 19:00 20:00 Temp 98.2 97.6 98.2 97.6 Pulse 94 89 Resp 18 18 B/P (MAP) 124/56 (78) 130/60 (83) Pulse Ox 97 97 94 O2 Delivery Nasal Cannula Nasal Cannula Nasal Cannula O2 Flow Rate 2.0 2.0 2.0 03/17/21 03/17/21 03/18/21 03/18/21 20:39 23:42 02:56 07:23 Temp 97.7 97.5 97.7 97.5 Pulse 76 81 Resp 18 18 B/P (MAP) 137/67 (90) 148/48 (81) Pulse Ox 99 94 98 98 O2 Delivery Nasal Cannula Nasal Cannula Nasal Cannula Nasal Cannula O2 Flow Rate 2.0 2.0 2.0 2.0 03/18/21 03/18/21 03/18/21 03/18/21 08:00 08:00 10:40 11:47 Temp 97.3 97.3 Pulse 85 Resp 18 19 B/P (MAP) 123/53 (76) Pulse Ox 100 98 96 O2 Delivery Nasal Cannula Nasal Cannula Nasal Cannula Nasal Cannula O2 Flow Rate 2.0 2.0 2.0 2.0 03/18/21 12:00 Temp 98.3 98.3 Pulse 80 Resp 18 B/P (MAP) 125/59 (81) Pulse Ox 98 O2 Delivery Nasal Cannula O2 Flow Rate 2.0 Intake and Output 03/17/21 03/17/21 03/18/21 15:00 23:00 07:00 Intake Total 400 ml 120 ml 350 ml Balance 400 ml 120 ml 350 ml Justicifation of Admission Dx: Justifications for Admission: Justification of Admission Dx: Yes Acute Renal Failure: RF Can't Be Managed Outpt DANIE BARCLAY MD Mar 18, 2021 14:21
[2021-03-18 15:00] VITALS: BP 132/62
[2021-03-18] MEDS: DOCUSATE SODIUM 100 MG CAPSULE. PO PRN (17:48)
[2021-03-18 19:00] VITALS: BP 121/59
[2021-03-18] MEDS: AZITHROMYCIN 500 MG in IV NORMAL SALINE 250ML 250 ML IV SCH (20:00)
[2021-03-18 23:00] VITALS: BP 109/53
[2021-03-19] MEDS: oxyCODONE/APAP 10/325 1 TAB TABLET PO PRN ×4 (02:34→21:21)
[2021-03-19 03:00] VITALS: BP 126/59
[2021-03-19] MEDS: PIPERACILLIN/TAZOBACTAM 2.25 GM in IV NORMAL SALINE 50ML 50 ML IV SCH (05:52)
[2021-03-19 07:00] VITALS: BP 126/60
[2021-03-19] MEDS: IPRATRPIUM/ALBUTEROL 0.5/2.5MG 3 ML NEBU. NEB SCH ×4 (07:25→20:33)
[2021-03-19] MEDS: BUDESONIDE 0.5 MG/2 ML NEBU. NEB SCH ×2 (07:25→20:33)
[2021-03-19 08:15] LABS: CALCIUM 8.1 mg/dL (8.5-10.1); CREATININE 0.7 mg/dL (0.6-1.0); GFR 98.7; MAGNESIUM 1.8 mg/dL (1.8-2.4)
[2021-03-19 08:27] LABS: POTASSIUM 2.9 mmol/L (3.5-5.1)
--- NOTE | 2021-03-19 08:42 | PDOC ---
PROGRESS NOTES Date of Service: DATE: 03/19/21 TIME: 08:40 Chief Complaint Chief Complaint IMPRESSION Acute metabolic and infectious encephalopathy Atypical bilateral pneumonia, likely gram-negative organisms, possible aspiration pneumonia /Extensive bilateral airspace disease. Extensive bilateral airspace disease with improved aeration in the right upper lobe and worsening opacification in the right lower lobe. 8-20 CXR Elevated BNP - likely due to renal failure Acute electrolyte derangementhyponatremia, hypochloremia OBEY due to vasomotor nephropathy CR 4.8 ON ADMIT Severe symptomatic hyponatremia suggestive of low solute intake Elevated creatinine kinase due to rhabdomyolysis Bedbound status Severe protein malnutrition Elevated AST ALT ratio No hydronephrosis. Urinary bladder distention. Heparin for DVT prophylaxis N.p.o. if altered mental status Full code Discussed with RN and SW Dispo inpatient management as above pulm consult History of Present Illness History of Present Illness Ms Noe is a 74-year-old -[place] female with a history of COPD and smoking, peripheral neuropathy, anxiety, congestive heart failure and anemia who presented with altered mental status and generalized weakness. Patient lives at home with her family. Patient's family called 911 due to p renato's generalized weakness and altered mental status. Family states patient has been in bed all day, but had fallen out of the bed at one point a few days prior to presentation. Patient did not want to come to the ED. Upon EMS arrival patient was noted to have an oxygen saturation in the 80s. Creatinine greater than 4 on admit CK urine thousand. Family says that she just sits at home smokes and drinks Coca-Cola all day. In ER patient was switched over to 2 L nasal cannula and still remains 100% on room air. During my exam patient does have mild coug but her lungs are clear bilateral and her heart is regular. She lives at home with her mother and son. She denies contact with persons who have been ill. She does not have any pets. Denies recent traveling. Seen by Pulmonology and nephrology in consultation. Planned to have COVID 19 vaccination on 03/16 03/15: Cr improving She is on 3L NCO2 at rest today. No CP. Still dyspneic, but denies SOB. Developed some brownish sputum. Pulmonology change antibiotics to Zosyn. Creatinine has been improving. 03/17 Cr improving 0.7 antibiotics IV Zosyn. Acute metabolic and infectious encephalopathy Atypical bilateral pneumonia, likely gram-negative organisms, possible a spiration pneumonia /Extensive bilateral airspace disease. Elevated BNP - likely due to renal failure Acute electrolyte derangementhyponatremia, hypochloremia OBEY due to vasomotor nephropathy CR 4.8 ON ADMIT Severe symptomatic hyponatremia suggestive of low solute intake Elevated creatinine kinase due to rhabdomyolysis Bedbound status Severe protein malnutrition Elevated AST ALT ratio No hydronephrosis. Urinary bladder distention. ELEVATED [id number], CONT TO TREND POSSIBLE RHABDOMYOLYSIS D/W RN 03/18 Cr improving Still dyspneic, but denies SOB. change antibiotics to Zosyn. Acute metabolic and infectious encephalopathy Atypical bilateral pneumonia, likely gram-negative organisms, possible aspiration pneumonia /Extensive bilateral airspace disease. Elevated BNP - likely due to renal failure Acute electrolyte derangementhyponatremia, hypochloremia OBEY due to vasomotor nephropathy CR 4.8 ON ADMIT Severe symptomatic hyponatremia suggestive of low solute intake Elevated creatinine kinase due to rhabdomyolysis Bedbound status Severe protein malnutrition Elevated AST ALT ratio No hydronephrosis. Urinary bladder distention. ELEVATED [id number], CONT TO TREND POSSIBLE RHABDOMYOLYSIS D/W RN 03/19 Cr improving CR 2.9 REPLACED Still dyspneic, but denies SOB. change antibiotics to Zosyn. Acute metabolic and infectious encephalopathy Atypical bilateral pneumonia, likely gram-negative organisms, possible a spiration pneumonia /Extensive bilateral airspace disease. Elevated BNP - likely due to renal failure Acute electrolyte derangementhyponatremia, hypochloremia OBEY due to vasomotor nephropathy CR 4.8 ON ADMIT Severe symptomatic hyponatremia suggestive of low solute intake Elevated creatinine kinase due to rhabdomyolysis Bedbound status Severe protein malnutrition Elevated AST ALT ratio No hydronephrosis. Urinary bladder distention. ELEVATED [id number], CONT TO TREND POSSIBLE RHABDOMYOLYSIS D/W RN Antibiotics can be deescalated. Zosyn can be changed to p.o. Augmentin. * 2 weeks Discharge Recommendations * Alf Unit Discharge Recommendation - DME * 4 wheeled walker needed * in order to complete ADLs Vitals Vitals Vital Signs Date Time Temp Pulse Resp B/P (MAP) Pulse Ox O2 Delivery O2 Flow Rate FiO2 03/19/21 07:25 96 Nasal Cannula 2.0 03/19/21 03:00 98.4 73 20 126/59 (81) 98.4 Physical Exam General: Alert, Oriented X3, Cooperative, mild distress Heart: Regular rate, Normal S1, Normal S2 Lungs: Other (Decreased breath sounds bilaterally) Abdomen: Normal bowel sounds, Soft, No tenderness Extremities: No clubbing, No cyanosis Skin: No breakdown Labs LABS * Visitor with patient Communicated Patient Care With (Name, Title) * PATRICK العلي Goal 2 - Transfers Assistance Required * Stand-by Assistance Goal 2 - Transfer Type * Sit to Stand Goal 2 Assessment * Appropriate - Continue Goal 3 - Ambulation Assistance Required * Stand-by Assistance Goal 3 - Ambulation Distance * 100' Goal 3 - Ambulation Device * Roller Walker Goal 3 Assessment * Appropriate - Continue Goal 4 - Stairs Assistance Required * Stand-by Assistance Goal 4 - Number of Stairs * 2-4 Goal 4 - Device on Stairs * Rail on Right * Rail on Left Treatment Plan * Therapeutic Exercise * Transfer training * Gait Training * Dynamic Balance Training Frequency of Treatment Expected * 5 visits/week Duration of Treatment Expected * 2 weeks Discharge Recommendations * Alf Unit Discharge Recommendation - DME * 4 wheeled walker needed * in order to complete ADLs * and ambulation safely Signed PATIENT: JANIYA NOE ACCOUNT: [id number] : 1945 LOCATION: [address] [place] [address] AGE: 75 SEX: F EXAM STATUS: ADM IN ORD. PHYSICIAN: GENTRY FISHMAN MD REASON: Pneumonia PROCEDURE: PORTABLE CHEST 1V EXAMINATION: Chest radiograph. VIEWS: Single AP view COMPARISON: 03/13/2021 INDICATION:75 years, Female, pneumonia. FINDINGS: Stable cardiomediastinal silhouette. Extensive bilateral airspace disease appears increased in the right lower lobe and decrease in the right perihilar and upper lobe. Associated right perihilar subsegmental atelectasis. Similar scarring or atelectasis of bilateral costophrenic angles. No pneumothorax or sizable pleural effusion. No acute osseous process. IMPRESSION: Extensive bilateral airspace disease with improved aeration in the right upper lobe and worsening opacification in the right lower lobe. Electronically signed by: Boone Flannery DO (03/19/2021 8:51 AM) [id number] DICTATED and SIGNED BY: BOONE FLANNERY DO DATE: 03/19/21 [id number] Laboratory Tests Test 03/19/21 05:50 Sodium Level 140 mmol/L (136-145) Potassium Level 2.9 mmol/L (3.5-5.1) Chloride Level 100 mmol/L (98-107) Carbon Dioxide Level 35 mmol/L (21-32) Anion Gap 5 (6-14) Blood Urea Nitrogen 5 mg/dL (7-20) Creatinine 0.7 mg/dL (0.6-1.0) Estimated GFR (Cockcroft-Gault) 98.7 Glucose Level 73 mg/dL (70-99) Calcium Level 8.1 mg/dL (8.5-10.1) Phosphorus Level 2.0 mg/dL (2.6-4.7) Magnesium Level 1.8 mg/dL (1.8-2.4) Assessment and Plan Assessmemt and Plan Problems Medical Problems: (1) Acute renal failure Status: Acute (2) Hyponatremia Status: Acute (3) Pneumonia Status: Acute Comment Review of Relevant I have reviewed the following items kelvin (where applicable) has been applied. Labs Laboratory Tests Test 03/18/21 08:12 03/19/21 05:50 White Blood Count 15.3 x10^3/uL (4.0-11.0) Red Blood Count 3.58 x10^6/uL (3.50-5.40) Hemoglobin 10.6 g/dL (12.0-15.5) Hematocrit 32.1 % (36.0-47.0) Mean Corpuscular Volume 90 fL (79-100) Mean Corpuscular Hemoglobin 30 pg (25-35) Mean Corpuscular Hemoglobin Concent 33 g/dL (31-37) Red Cell Distribution Width 15.1 % (11.5-14.5) Platelet Count 444 x10^3/uL (140-400) Neutrophils (%) (Auto) 90 % (31-73) Lymphocytes (%) (Auto) 5 % (24-48) Monocytes (%) (Auto) 4 % (0-9) Eosinophils (%) (Auto) 1 % (0-3) Basophils (%) (Auto) 0 % (0-3) Neutrophils # (Auto) 13.8 x10^3/uL (1.8-7.7) Lymphocytes # (Auto) 0.7 x10^3/uL (1.0-4.8) Monocytes # (Auto) 0.6 x10^3/uL (0.0-1.1) Eosinophils # (Auto) 0.1 x10^3/uL (0.0-0.7) Basophils # (Auto) 0.0 x10^3/uL (0.0-0.2) Sodium Level 142 mmol/L (136-145) 140 mmol/L (136-145) Potassium Level 3.3 mmol/L (3.5-5.1) 2.9 mmol/L (3.5-5.1) Chloride Level 102 mmol/L (98-107) 100 mmol/L (98-107) Carbon Dioxide Level 36 mmol/L (21-32) 35 mmol/L (21-32) Anion Gap 4 (6-14) 5 (6-14) Blood Urea Nitrogen 6 mg/dL (7-20) 5 mg/dL (7-20) Creatinine 0.8 mg/dL (0.6-1.0) 0.7 mg/dL (0.6-1.0) Estimated GFR (Cockcroft-Gault) 84.6 98.7 Glucose Level 89 mg/dL (70-99) 73 mg/dL (70-99) Calcium Level 8.7 mg/dL (8.5-10.1) 8.1 mg/dL (8.5-10.1) Phosphorus Level 1.2 mg/dL (2.6-4.7) 2.0 mg/dL (2.6-4.7) Magnesium Level 1.6 mg/dL (1.8-2.4) 1.8 mg/dL (1.8-2.4) Laboratory Tests Test 03/19/21 05:50 Sodium Level 140 mmol/L (136-145) Potassium Level 2.9 mmol/L (3.5-5.1) Chloride Level 100 mmol/L (98-107) Carbon Dioxide Level 35 mmol/L (21-32) Anion Gap 5 (6-14) Blood Urea Nitrogen 5 mg/dL (7-20) Creatinine 0.7 mg/dL (0.6-1.0) Estimated GFR (Cockcroft-Gault) 98.7 Glucose Level 73 mg/dL (70-99) Calcium Level 8.1 mg/dL (8.5-10.1) Phosphorus Level 2.0 mg/dL (2.6-4.7) Magnesium Level 1.8 mg/dL (1.8-2.4) Microbiology 03/14/21 Blood Culture - Final, Complete NO GROWTH AFTER 5 DAYS Medications Current Medications Sodium Chloride 1,000 ml @ 1,000 mls/hr 1X ONCE IV Last administered on 03/13/21at 20:00; Start 03/13/21 at 20:15; Stop 03/13/21 at 21:14; Status DC Ceftriaxone Sodium (Rocephin) 1 gm 1X ONCE IVP Last administered on 03/13/21at 21:16; Start 03/13/21 at 20:30; Stop 03/13/21 at 20:31; Status DC Azithromycin 250 ml @ 250 mls/hr 1X ONCE IV Last administered on 03/13/21at 20:30; Start 03/13/21 at 20:30; Stop 03/13/21 at 21:29; Status DC Ondansetron HCl (Zofran) 4 mg PRN Q8HRS PRN IVP NAUSEA/VOMITING; Start 03/13/21 at 20:15; Stop 03/14/21 at 20:14; Status Cancel Acetaminophen (Tylenol) 650 mg PRN Q4HRS PRN PO FEVER > 100.3'F; Start 03/13/21 at 20:15; Stop 03/14/21 at 20:14; Status Cancel Sennosides (Senna) 17.2 mg PRN BID PRN PO CONSTIPATION; Start 03/14/21 at 09:00 Docusate Sodium (Colace) 100 mg PRN DAILY PRN PO HARD STOOLS Last administered on 03/18/21at 17:48; Start 03/14/21 at 09:00 Ondansetron HCl (Zofran) 4 mg PRN Q6HRS PRN IVP NAUSEA/VOMITING; Start 03/14/21 at 09:00 Dextrose (Dextrose 50%-Water Syringe) 12.5 gm PRN Q15MIN PRN IV SEE COMMENTS; Start 03/14/21 at 09:00 Sodium Chloride 1,000 ml @ 100 mls/hr Q10H IV Last administered on 03/16/21at 06:09; Start 03/14/21 at 09:00; Stop 03/16/21 at 10:48; Status DC Acetaminophen (Tylenol) 650 mg PRN Q4HRS PRN PO TEMP OVER 100.4F OR HEADACHE Last administered on 03/18/21at 21:09; Start 03/14/21 at 09:00 Heparin Sodium (Porcine) (Heparin Sodium) 5,000 unit Q12HR SQ Last administered on 03/18/21at 21:25; Start 03/14/21 at 09:00 Azithromycin 500 mg/Sodium Chloride 250 ml @ 250 mls/hr Q24H IV Last administered on 03/18/21at 20:00; Start 03/14/21 at 20:00 Ceftriaxone Sodium (Rocephin) 1 gm Q24H IVP Last administered on 03/15/21at 20:51; Start 03/14/21 at 21:00; Stop 03/16/21 at 10:43; Status DC Prochlorperazine Edisylate (Compazine) 10 mg PRN Q6HRS PRN IV NAUSEA/VOMITING- 2ND CHOICE; Start 03/14/21 at 09:00 Oxycodone/ Acetaminophen (Percocet 10/325) 1 tab PRN Q6HRS PRN PO PAIN Last administered on 03/19/21at 02:34; Start 03/14/21 at 20:45 Lactobacillus Rhamnosus (Culturelle) 1 cap BID PO Last administered on 03/18/21at 21:09; Start 03/15/21 at 21:00 Piperacillin Sod/ Tazobactam Sod (Zosyn Per Pharmacy) 1 each PRN DAILY PRN MC SEE COMMENTS; Start 03/16/21 at 10:45 Piperacillin Sod/ Tazobactam Sod (Zosyn Per Pharmacy) 1 each PRN DAILY PRN MC SEE COMMENTS; Start 03/16/21 at 10:45; Status UNV Piperacillin Sod/ Tazobactam Sod 2.25 gm/Sodium Chloride 50 ml @ 100 mls/hr Q6HRS IV Last administered on 03/19/21at 05:52; Start 03/16/21 at 12:00 Albuterol/ Ipratropium (Duoneb) 3 ml RTQID NEB Last administered on 03/19/21at 07:25; Start 03/16/21 at 12:00 Albuterol Sulfate (Ventolin Neb Soln) 2.5 mg PRN Q4HRS PRN NEB SHORTNESS OF BREATH; Start 03/16/21 at 11:00 Albuterol/ Ipratropium (Duoneb) 3 ml RTQID NEB ; Start 03/16/21 at 12:00; Stop 03/16/21 at 10:51; Status DC Budesonide (Pulmicort) 0.5 mg RTBID NEB Last administered on 03/19/21at 07:25; Start 03/16/21 at 11:00 Methylprednisolone Sodium Succinate (SOLU-Medrol 40MG VIAL) 40 mg 1X ONCE IV Last administered on 03/16/21at 12:10; Start 03/16/21 at 11:15; Stop 03/16/21 at 11:16; Status DC Magnesium Sulfate 50 ml @ 25 mls/hr 1X ONCE IV Last administered on 03/17/21at 11:47; Start 03/17/21 at 12:00; Stop 03/17/21 at 13:59; Status DC Zolpidem Tartrate (Ambien) 5 mg PRN QHS PRN PO INSOMNIA Last administered on 03/17/21at 21:04; Start 03/17/21 at 20:45 Magnesium Sulfate 50 ml @ 25 mls/hr 1X ONCE IV Last administered on 03/18/21at 21:30; Start 03/18/21 at 11:00; Stop 03/18/21 at 12:59; Status DC Potassium Chloride/Water 100 ml @ 100 mls/hr Q1H IV Last administered on 03/18/21at 21:09; Start 03/18/21 at 11:00; Stop 03/18/21 at 14:59; Status DC Sodium Phosphate 15 mmol/Sodium Chloride 105 ml @ 105 mls/hr 1X ONCE IV Last administered on 03/18/21at 11:57; Start 03/18/21 at 11:00; Stop 03/18/21 at 11:59; Status DC Active Scripts Active Prednisone (Prednisone) 10 Mg Tablet 3 Tab PO DAILY 5 Days Duoneb 0.5-3(2.5) Mg/3 Ml (Albuterol/Ipratropium) 3 Ml Ampul.neb 3 Ml NEB Q4HRS 30 Days Budesonide 0.5 Mg/2 Ml Ampul.neb 0.5 Mg NEB RTBID 30 Days Amox Tr-K Clv 500-125 Mg Tab (Amoxicillin/Potassium Clav) 1 Each Tablet 1 Tab PO BID 5 Days Reported Percocet 10-325 Mg Tablet (Oxycodone/Acetaminophen) 1 Each Tablet 1 Tab PO PRN Q4-6HRS PRN MDD 6 Tablet(s) 5 Days Alprazolam 0.5 Mg Tablet 1 Tab PO DAILY PRN Gabapentin 600 Mg Tablet 600 Mg PO TID Vitals/I & O Vital Sign - Last 24 Hours 03/18/21 03/18/21 03/18/21 03/18/21 10:40 11:10 11:47 12:00 Temp 98.3 98.3 Pulse 80 Resp 19 19 18 B/P (MAP) 125/59 (81) Pulse Ox 98 97 96 98 O2 Delivery Nasal Cannula Nasal Cannula Nasal Cannula Nasal Cannula O2 Flow Rate 2.0 2.0 2.0 2.0 03/18/21 03/18/21 03/18/21 03/18/21 15:00 16:09 17:49 19:00 Temp 97.7 98.3 97.7 98.3 Pulse 82 91 Resp 18 18 20 B/P (MAP) 132/62 (85) 121/59 (79) Pulse Ox 96 97 97 97 O2 Delivery Nasal Cannula Nasal Cannula Nasal Cannula Nasal Cannula O2 Flow Rate 2.0 2.0 2.0 2.0 03/18/21 03/18/21 03/18/21 03/18/21 19:51 20:21 20:21 23:00 Temp 98.7 98.7 Pulse 84 Resp 20 B/P (MAP) 109/53 (71) Pulse Ox 100 100 95 O2 Delivery Nasal Cannula Nasal Cannula Nasal Cannula Nasal Cannula O2 Flow Rate 2.0 2.0 2.0 2.0 03/19/21 03/19/21 03:00 07:25 Temp 98.4 98.4 Pulse 73 Resp 20 B/P (MAP) 126/59 (81) Pulse Ox 94 96 O2 Delivery Nasal Cannula Nasal Cannula O2 Flow Rate 2.0 2.0 Intake and Output 03/18/21 03/18/21 03/19/21 15:00 23:00 07:00 Intake Total 440 ml 360 ml 750 ml Output Total 400 ml Balance 440 ml 360 ml 350 ml Justicifation of Admission Dx: Justifications for Admission: Justification of Admission Dx: Yes Acute Renal Failure: RF Can't Be Managed Outpt DANIE BARCLAY MD Mar 19, 2021 08:41
[2021-03-19] MEDS: LACTOBACILLUS RHAMNOSUS GG 1 CAPSULE. PO SCH ×2 (08:49→21:20)
--- NOTE | 2021-03-19 08:53 | RAD ---
EXAMINATION: Chest radiograph. VIEWS: Single AP view COMPARISON: 03/13/2021 INDICATION:75 years, Female, pneumonia. FINDINGS: Stable cardiomediastinal silhouette. Extensive bilateral airspace disease appears increased in the ri ght lower lobe and decrease in the right perihilar and upper lobe. Associated right perihilar subsegm ental atelectasis. Similar scarring or atelectasis of bilateral costophrenic angles. No pneumothorax or sizable pleural effusion. No acute osseous process. IMPRESSION: Extensive bilateral airspace disease with improved aeration in the right upper lobe and worsening opa cification in the right lower lobe. Electronically signed by: Ron Flannery DO (03/19/2021 8:51 AM) [id number]
[2021-03-19] MEDS: HEPARIN for SUB-Q USE 5,000 UNIT/ML VIAL. SQ SCH ×2 (08:54→22:22)
--- NOTE | 2021-03-19 10:13 | PDOC ---
PULMONARY PROGRESS NOTES DATE: 03/19/21 TIME: 10:12 Subjective Patient is lethargic Denies any shortness of breath. Vitals Vital Signs Date Time Temp Pulse Resp B/P (MAP) Pulse Ox O2 Delivery O2 Flow Rate FiO2 03/19/21 09:20 17 Nasal Cannula 2.0 03/19/21 07:25 96 03/19/21 07:00 97.8 83 126/60 (82) 97.8 General: No acute distress Lungs: Other (Decreased breath sounds bilaterally) Cardiovascular: S1, S2 Abdomen: Soft, Non-tender, Other Extremities: No Edema Labs Laboratory Tests Test 03/18/21 08:12 03/19/21 05:50 White Blood Count 15.3 x10^3/uL (4.0-11.0) Red Blood Count 3.58 x10^6/uL (3.50-5.40) Hemoglobin 10.6 g/dL (12.0-15.5) Hematocrit 32.1 % (36.0-47.0) Mean Corpuscular Volume 90 fL (79-100) Mean Corpuscular Hemoglobin 30 pg (25-35) Mean Corpuscular Hemoglobin Concent 33 g/dL (31-37) Red Cell Distribution Width 15.1 % (11.5-14.5) Platelet Count 444 x10^3/uL (140-400) Neutrophils (%) (Auto) 90 % (31-73) Lymphocytes (%) (Auto) 5 % (24-48) Monocytes (%) (Auto) 4 % (0-9) Eosinophils (%) (Auto) 1 % (0-3) Basophils (%) (Auto) 0 % (0-3) Neutrophils # (Auto) 13.8 x10^3/uL (1.8-7.7) Lymphocytes # (Auto) 0.7 x10^3/uL (1.0-4.8) Monocytes # (Auto) 0.6 x10^3/uL (0.0-1.1) Eosinophils # (Auto) 0.1 x10^3/uL (0.0-0.7) Basophils # (Auto) 0.0 x10^3/uL (0.0-0.2) Sodium Level 142 mmol/L (136-145) 140 mmol/L (136-145) Potassium Level 3.3 mmol/L (3.5-5.1) 2.9 mmol/L (3.5-5.1) Chloride Level 102 mmol/L (98-107) 100 mmol/L (98-107) Carbon Dioxide Level 36 mmol/L (21-32) 35 mmol/L (21-32) Anion Gap 4 (6-14) 5 (6-14) Blood Urea Nitrogen 6 mg/dL (7-20) 5 mg/dL (7-20) Creatinine 0.8 mg/dL (0.6-1.0) 0.7 mg/dL (0.6-1.0) Estimated GFR (Cockcroft-Gault) 84.6 98.7 Glucose Level 89 mg/dL (70-99) 73 mg/dL (70-99) Calcium Level 8.7 mg/dL (8.5-10.1) 8.1 mg/dL (8.5-10.1) Phosphorus Level 1.2 mg/dL (2.6-4.7) 2.0 mg/dL (2.6-4.7) Magnesium Level 1.6 mg/dL (1.8-2.4) 1.8 mg/dL (1.8-2.4) Laboratory Tests Test 03/19/21 05:50 Sodium Level 140 mmol/L (136-145) Potassium Level 2.9 mmol/L (3.5-5.1) Chloride Level 100 mmol/L (98-107) Carbon Dioxide Level 35 mmol/L (21-32) Anion Gap 5 (6-14) Blood Urea Nitrogen 5 mg/dL (7-20) Creatinine 0.7 mg/dL (0.6-1.0) Estimated GFR (Cockcroft-Gault) 98.7 Glucose Level 73 mg/dL (70-99) Calcium Level 8.1 mg/dL (8.5-10.1) Phosphorus Level 2.0 mg/dL (2.6-4.7) Magnesium Level 1.8 mg/dL (1.8-2.4) Medications Active Scripts Medications Dose Route/Sig Max Daily Dose Days Date Category Prednisone (Prednisone) 10 Mg Tablet 3 Tab PO DAILY 5 09/18/19 Rx Duoneb 0.5-3(2.5) Mg/3 Ml (Albuterol/Ipratropium) 3 Ml Ampul.neb 3 Ml NEB Q4HRS 30 09/18/19 Rx Budesonide 0.5 Mg/2 Ml Ampul.neb 0.5 Mg NEB RTBID 30 09/18/19 Rx Amox Tr-K Clv 500-125 Mg Tab (Amoxicillin/Potassium Clav) 1 Each Tablet 1 Tab PO BID 5 09/18/19 Rx Percocet 10-325 Mg Tablet (Oxycodone/Acetaminophen) 1 Each Tablet 1 Tab PO PRN Q4-6HRS PRN MDD 6 Tablet(s) 5 09/18/19 Reported Alprazolam 0.5 Mg Tablet 1 Tab PO DAILY PRN 09/18/19 Reported Gabapentin 600 Mg Tablet 600 Mg PO TID 09/18/19 Reported Impression . 1. Acute hypoxic respiratory failure likely secondary to suspected gram- negative pneumonia. Could have some component of aspiration as well due to encephalopathy. 2. 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 The patient is very emaciated. 3. Abnormal chest x-ray consistent with pneumonia. 4. Acute kidney injury. 5. Leukocytosis secondary to pneumonia. Plan . 1. Continue broad-spectrum antibiotics. 2. Follow-up chest x-ray from today was reviewed. There is an improvement in right upper lobe infiltrate. There is an increase in a small right lower lobe pleural effusion. 3. Deep venous thrombosis prophylaxis. 4. Continue with oxygen, keep saturation 92 and above. 5. bronchodilators. 6. Discussed with RN. 7. Antibiotics can be deescalated. Zosyn can be changed to p.o. Augmentin. GENTRY FISHMAN MD Mar 19, 2021 10:13
[2021-03-19] MEDS ORDERED: POTASSIUM CHLORIDE 10 MEQ TABLET.ER. PO ONE (10:30)
[2021-03-19 11:00] VITALS: BP 117/69
--- NOTE | 2021-03-19 11:09 | PDOC ---
Renal-Progress Notes Subjective Notes Notes CONFUSED History of Present Illness Hx of present illness OVERALL VERY DECONDITIONED AND WEAK Vitals Vitals Vital Signs Date Time Temp Pulse Resp B/P (MAP) Pulse Ox O2 Delivery O2 Flow Rate FiO2 03/19/21 09:20 17 Nasal Cannula 2.0 03/19/21 07:25 96 03/19/21 07:00 97.8 83 126/60 (82) 97.8 Weight Weight [ ] I.O. Intake and Output Intake and Output 03/19/21 07:00 Intake Total 1550 ml Output Total 400 ml Balance 1150 ml Intake Oral 800 ml IV Total 750 ml Output Urine Total 400 ml # Voids 5 # Bowel Movements 2 Labs Labs Laboratory Tests Test 03/19/21 05:50 Sodium Level 140 mmol/L (136-145) Potassium Level 2.9 mmol/L (3.5-5.1) Chloride Level 100 mmol/L (98-107) Carbon Dioxide Level 35 mmol/L (21-32) Anion Gap 5 (6-14) Blood Urea Nitrogen 5 mg/dL (7-20) Creatinine 0.7 mg/dL (0.6-1.0) Estimated GFR (Cockcroft-Gault) 98.7 Glucose Level 73 mg/dL (70-99) Calcium Level 8.1 mg/dL (8.5-10.1) Phosphorus Level 2.0 mg/dL (2.6-4.7) Magnesium Level 1.8 mg/dL (1.8-2.4) Micro Micro Microbiology 03/14/21 Blood Culture - Final, Complete NO GROWTH AFTER 5 DAYS Review of Systems Constitutional: yes: weakness, alert Ears/Nose/Throat: Yes: no symptom reported Eyes: Yes: no symptom reported Pulmonary: Yes no symptom reported Cardiovascular: Yes no symptom reported Gastrointestional: Yes: no symptom reported Genitourinary: Yes: no symptom reported Musculoskeletal: Yes: no symptom reported Skin: Yes no symptom reported Psychiatric/Neurological: Yes: confusion Endocrine: Yes: no symptom reported Physical Exam General Appearance: no apparent distress Skin: warm Respiratory: bilateral CTA Heart: S1S2 Abdomen: soft, bowel sounds present Genitourinary: bladder flat Extremities: pulses present Neurology: alert, confused Assessment Assessment IMP ENCEPHALOPATHY SEVERE HYPONATREMIA-NEARLY RESOLVED LEUCOCYTOSIS-IMPROVING PNEUMONIA-GRAM NEG ACUTE HYPOXIC RESP FAILURE [id number] URINARY RETENTION SUSPECT VOLUME DEPLETION CHRONICALLY ELEVATED BNP 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
[2021-03-19] MEDS ORDERED: MAGNESIUM SULFATE 2GM 50 ML IV ONE (12:00)
[2021-03-19] MEDS: POTASSIUM PHOS,M-BASIC-D-BASIC 13.6 MMOL in IV NORMAL SALINE 250ML 250 ML IV SCH ×2 (12:00→14:04)
--- NOTE | 2021-03-19 13:31 | NUR ---
SW following. Discussed with RN, family refusing SNF, want to take pt home with home health. Pt accepted with [facility]. RN attempting to titrate pt off o2, otherwise will need a 6 minute walk prior to discharge. SW will continue to follow.
[2021-03-19 15:00] VITALS: BP 126/61
[2021-03-19 19:00] VITALS: BP 128/73
[2021-03-19] MEDS: AMOXICILLIN/K CLAV 500/125MG TABLET. PO SCH (21:20)
[2021-03-19] MEDS: ZOLPIDEM 5 MG TABLET. PO PRN (21:21)
[2021-03-19 23:55] VITALS: BP 136/80
[2021-03-20 03:00] VITALS: BP 131/73
[2021-03-20 07:00] VITALS: BP 151/83
[2021-03-20] MEDS: BUDESONIDE 0.5 MG/2 ML NEBU. NEB SCH ×2 (07:21→18:20)
[2021-03-20] MEDS: IPRATRPIUM/ALBUTEROL 0.5/2.5MG 3 ML NEBU. NEB SCH ×4 (07:21→18:20)
[2021-03-20 07:32] LABS: ALBUMIN 1.9 g/dL (3.4-5.0); ALBUMIN/GLOBULIN RATIO 0.5 (1.0-1.7); CALCIUM 8.4 mg/dL (8.5-10.1); CREATININE 0.6 mg/dL (0.6-1.0); GFR 117.9; POTASSIUM 3.6 mmol/L (3.5-5.1); TOTAL BILIRUBIN 0.2 mg/dL (0.2-1.0); TOTAL PROTEIN 5.5 g/dL (6.4-8.2)
--- NOTE | 2021-03-20 08:29 | PDOC ---
PULMONARY PROGRESS NOTES DATE: 03/20/21 TIME: 08:27 Subjective on ra denies sob has occ cough feels much better Vitals Vital Signs Date Time Temp Pulse Resp B/P (MAP) Pulse Ox O2 Delivery O2 Flow Rate FiO2 03/20/21 07:22 99 Nasal Cannula 2.0 03/20/21 07:00 98.6 92 18 151/83 (105) 98.6 ROS: No Nausea General: Alert, No acute distress Lungs: Other (Decreased breath sounds bilaterally) Cardiovascular: S1, S2 Abdomen: Soft, Non-tender, Other Neuro Exam: Alert Extremities: No Edema Skin: Warm Labs Laboratory Tests Test 03/19/21 05:50 03/20/21 05:50 Sodium Level 140 mmol/L (136-145) 139 mmol/L (136-145) Potassium Level 2.9 mmol/L (3.5-5.1) 3.6 mmol/L (3.5-5.1) Chloride Level 100 mmol/L (98-107) 102 mmol/L (98-107) Carbon Dioxide Level 35 mmol/L (21-32) 35 mmol/L (21-32) Anion Gap 5 (6-14) 2 (6-14) Blood Urea Nitrogen 5 mg/dL (7-20) 4 mg/dL (7-20) Creatinine 0.7 mg/dL (0.6-1.0) 0.6 mg/dL (0.6-1.0) Estimated GFR (Cockcroft-Gault) 98.7 117.9 Glucose Level 73 mg/dL (70-99) 64 mg/dL (70-99) Calcium Level 8.1 mg/dL (8.5-10.1) 8.4 mg/dL (8.5-10.1) Phosphorus Level 2.0 mg/dL (2.6-4.7) Magnesium Level 1.8 mg/dL (1.8-2.4) BUN/Creatinine Ratio 7 (6-20) Total Bilirubin 0.2 mg/dL (0.2-1.0) Aspartate Amino Transf (AST/SGOT) 21 U/L (15-37) Alanine Aminotransferase (ALT/SGPT) 16 U/L (14-59) Alkaline Phosphatase 77 U/L (46-116) Creatine Kinase 49 U/L (26-192) Total Protein 5.5 g/dL (6.4-8.2) Albumin 1.9 g/dL (3.4-5.0) Albumin/Globulin Ratio 0.5 (1.0-1.7) Laboratory Tests Test 03/20/21 05:50 Sodium Level 139 mmol/L (136-145) Potassium Level 3.6 mmol/L (3.5-5.1) Chloride Level 102 mmol/L (98-107) Carbon Dioxide Level 35 mmol/L (21-32) Anion Gap 2 (6-14) Blood Urea Nitrogen 4 mg/dL (7-20) Creatinine 0.6 mg/dL (0.6-1.0) Estimated GFR (Cockcroft-Gault) 117.9 BUN/Creatinine Ratio 7 (6-20) Glucose Level 64 mg/dL (70-99) Calcium Level 8.4 mg/dL (8.5-10.1) Total Bilirubin 0.2 mg/dL (0.2-1.0) Aspartate Amino Transf (AST/SGOT) 21 U/L (15-37) Alanine Aminotransferase (ALT/SGPT) 16 U/L (14-59) Alkaline Phosphatase 77 U/L (46-116) Creatine Kinase 49 U/L (26-192) Total Protein 5.5 g/dL (6.4-8.2) Albumin 1.9 g/dL (3.4-5.0) Albumin/Globulin Ratio 0.5 (1.0-1.7) Medications Active Scripts Medications Dose Route/Sig Max Daily Dose Days Date Category Prednisone (Prednisone) 10 Mg Tablet 3 Tab PO DAILY 5 09/18/19 Rx Duoneb 0.5-3(2.5) Mg/3 Ml (Albuterol/Ipratropium) 3 Ml Ampul.neb 3 Ml NEB Q4HRS 30 09/18/19 Rx Budesonide 0.5 Mg/2 Ml Ampul.neb 0.5 Mg NEB RTBID 30 09/18/19 Rx Amox Tr-K Clv 500-125 Mg Tab (Amoxicillin/Potassium Clav) 1 Each Tablet 1 Tab PO BID 5 09/18/19 Rx Percocet 10-325 Mg Tablet (Oxycodone/Acetaminophen) 1 Each Tablet 1 Tab PO PRN Q4-6HRS PRN MDD 6 Tablet(s) 5 09/18/19 Reported Alprazolam 0.5 Mg Tablet 1 Tab PO DAILY PRN 09/18/19 Reported Gabapentin 600 Mg Tablet 600 Mg PO TID 09/18/19 Reported Impression . 1. Acute hypoxic respiratory failure likely secondary to suspected gram- negative pneumonia. Could have some component of aspiration as well due to encephalopathy. 2. 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 The patient is very emaciated. 3. Abnormal chest x-ray consistent with pneumonia. 4. Acute kidney injury. 5. Leukocytosis secondary to pneumonia. Plan . 1. Continue abx for total 7 days on augmentin now 2. Follow-up chest x-ray from 03/19 was reviewed. There is an improvement in right upper lobe infiltrate. There is an increase in a small right lower lobe pleural effusion. 3. Deep venous thrombosis prophylaxis. 4. keep saturation 90 and above. 6 min walk at dc 5. bronchodilators. ics 6. Discussed with PATRICK. AMELIE FRANK MD Mar 20, 2021 08:29
[2021-03-20] MEDS: oxyCODONE/APAP 10/325 1 TAB TABLET PO PRN ×3 (08:59→20:34)
[2021-03-20] MEDS: LACTOBACILLUS RHAMNOSUS GG 1 CAPSULE. PO SCH ×2 (08:59→22:19)
[2021-03-20] MEDS: AMOXICILLIN/K CLAV 500/125MG TABLET. PO SCH ×2 (08:59→22:19)
[2021-03-20] MEDS: HEPARIN for SUB-Q USE 5,000 UNIT/ML VIAL. SQ SCH ×2 (09:09→22:26)
--- NOTE | 2021-03-20 10:57 | NUR ---
PATIENT OXYGEN LEVELS 97% ON 2L. WHEN OXYGEN REMOVED SATURATION WAS RECHECKED AND DROPPED TO 70S ON ROOM AIR. OXYGEN WAS READMINISTERED AND LEVELS RETURNED TO 90S. 6 MIN WALK ORDERED TO EVAL OXYGEN NEEDS PRIOR TO DISCHARGE,
[2021-03-20 11:00] VITALS: BP 134/65
--- NOTE | 2021-03-20 11:58 | PDOC ---
PROGRESS NOTES Date of Service: DATE: 03/20/21 TIME: 11:55 Chief Complaint Chief Complaint IMPRESSION Acute metabolic and infectious encephalopathy Atypical bilateral pneumonia, likely gram-negative organisms, possible aspiration pneumonia /Extensive bilateral airspace disease. Extensive bilateral airspace disease with improved aeration in the right upper lobe and worsening opacification in the right lower lobe. 8-20 CXR Elevated BNP - likely due to renal failure Acute electrolyte derangementhyponatremia, hypochloremia OBEY due to vasomotor nephropathy CR 4.8 ON ADMIT Severe symptomatic hyponatremia suggestive of low solute intake Elevated creatinine kinase due to rhabdomyolysis Bedbound status Severe protein malnutrition Elevated AST ALT ratio No hydronephrosis. Urinary bladder distention. Extensive bilateral airspace disease with improved aeration in the right upper lobe and worsening opacification in the right lower lobe. 8-20 Heparin for DVT prophylaxis N.p.o. if altered mental status Full code Discussed with RN and ZEINAB Dispo inpatient management as above pulm consult History of Present Illness History of Present Illness Ms Noe is a 74-year-old -[place] female with a history of COPD and smoking, peripheral neuropathy, anxiety, congestive heart failure and anemia who presented with altered mental status and generalized weakness. Patient lives at home with her family. Patient's family called 911 due to patient's generalized weakness and altered mental status. Family states patient has been in bed all day, but had fallen out of the bed at one point a few days prior to presentation. Patient did not want to come to the ED. Upon EMS arrival patient was noted to have an oxygen saturation in the 80s. Creatinine greater than 4 on admit CK urine thousand. Family says that she just sits at home smokes and drinks Coca-Cola all day. In ER patient was switched over to 2 L nasal cannula and still remains 100% on room air. During my exam patient does have mild coug but her lungs are clear bilateral and her heart is regular. She lives at home with her mother and son. She denies contact with persons who have been ill. She does not have any pets. Denies recent traveling. Seen by Pulmonology and nephrology in consultation. Planned to have COVID 19 vaccination on 03/16 03/15: Cr improving She is on 3L NCO2 at rest today. No CP. Still dyspneic, but denies SOB. Developed some brownish sputum. Pulmonology change antibiotics to Zosyn. Creatinine has been improving. 03/17 Cr improving 0.7 antibiotics IV Zosyn. Acute metabolic and infectious encephalopathy Atypical bilateral pneumonia, likely gram-negative organisms, possible aspiration pneumonia /Extensive bilateral airspace disease. Elevated BNP - likely due to renal failure Acute electrolyte derangementhyponatremia, hypochloremia OBEY due to vasomotor nephropathy CR 4.8 ON ADMIT Severe symptomatic hyponatremia suggestive of low solute intake Elevated creatinine kinase due to rhabdomyolysis Bedbound status Severe protein malnutrition Elevated AST ALT ratio No hydronephrosis. Urinary bladder distention. ELEVATED [id number], CONT TO TREND POSSIBLE RHABDOMYOLYSIS D/W RN 03/18 Cr improving Still dyspneic, but denies SOB. change antibiotics to Zosyn. Acute metabolic and infectious encephalopathy Atypical bilateral pneumonia, likely gram-negative organisms, possible aspiration pneumonia /Extensive bilateral airspace disease. Elevated BNP - likely due to renal failure Acute electrolyte derangementhyponatremia, hypochloremia OBEY due to vasomotor nephropathy CR 4.8 ON ADMIT Severe symptomatic hyponatremia suggestive of low solute intake Elevated creatinine kinase due to rhabdomyolysis Bedbound status Severe protein malnutrition Elevated AST ALT ratio No hydronephrosis. Urinary bladder distention. ELEVATED [id number], CONT TO TREND POSSIBLE RHABDOMYOLYSIS D/W RN 03/19 Cr improving CR 2.9 REPLACED Still dyspneic, but denies SOB. change antibiotics to Zosyn. Acute metabolic and infectious encephalopathy Atypical bilateral pneumonia, likely gram-negative organisms, possible aspiration pneumonia /Extensive bilateral airspace disease. Elevated BNP - likely due to renal failure Acute electrolyte derangementhyponatremia, hypochloremia OBEY due to vasomotor nephropathy CR 4.8 ON ADMIT Severe symptomatic hyponatremia suggestive of low solute intake Elevated creatinine kinase due to rhabdomyolysis Bedbound status Severe protein malnutrition Elevated AST ALT ratio No hydronephrosis. Urinary bladder distention. ELEVATED [id number], CONT TO TREND POSSIBLE RHABDOMYOLYSIS D/W RN Antibiotics can be deescalated. Zosyn can be changed to p.o. Augmentin. * 2 weeks Discharge Recommendations * Detention Unit Discharge Recommendation - DME * 4 wheeled walker needed * in order to complete ADLs 03/20 DESAT TO 81% ON ROOM AIR BY JUST STANDING UP FROM BED 8- D/W RT increase in a small right lower lobe pleural effusion. 6 MIN WALK AT D/C NOW ON 2 LITERS NC Extensive bilateral airspace disease with improved aeration in the right upper lobe and worsening opacification in the right lower lobe. 8-20 CXR Cr improving CR 2.9 REPLACED K Still dyspneic, but denies SOB. change antibiotics to Zosyn. Acute metabolic and infectious encephalopathy Atypical bilateral pneumonia, likely gram-negative organisms, possible aspiration pneumonia /Extensive bilateral airspace disease. Elevated BNP - likely due to renal failure Acute electrolyte derangementhyponatremia, hypochloremia OBEY due to vasomotor nephropathy CR 4.8 ON ADMIT Severe symptomatic hyponatremia suggestive of low solute intake Elevated creatinine kinase due to rhabdomyolysis Bedbound status Severe protein malnutrition Elevated AST ALT ratio No hydronephrosis. Urinary bladder distention. ELEVATED [id number], CONT TO TREND POSSIBLE RHABDOMYOLYSIS D/W RN POSSIBLE component of aspiration as well due to encephalopathy. Diffuse pulmonary opacities, predominantly interstitial, likely due to a combination of chronic fibrosis and interstitial infiltrate, greatest at the lung bases. Some opacities have a slightly nodular morphology. Recommend short- term CT chest follow-up to document resolution. FROM 2-21 Antibiotics can be deescalated. Zosyn can be changed to p.o. Augmentin. * 2 weeks Discharge Recommendations FAMILY REFUSED AMA * Detention Unit Discharge Recommendation - DME * 4 wheeled walker needed * in order to complete ADLs Vitals Vitals Vital Signs Date Time Temp Pulse Resp B/P (MAP) Pulse Ox O2 Delivery O2 Flow Rate FiO2 03/20/21 11:27 97 Nasal Cannula 2.0 03/20/21 11:00 98.1 88 18 134/65 (88) 98.1 Physical Exam General: Alert, Oriented X3, Cooperative, mild distress Heart: Regular rate, Normal S1, Normal S2 Lungs: Crackles, Other (Decreased breath sounds bilaterally) Abdomen: Normal bowel sounds, Soft, No tenderness Extremities: No clubbing, No cyanosis Skin: No breakdown Labs LABS Test Phase * Recovery SpO2 * 93 % Heart Rate * 102 beats/min Oxygen Flow Rate * 2 lpm Oxygen Device * Nasal Cannula Total Distance Walked * 250 feet 6 Minute Walk Comments * Patient ambulated in the hallway with the assistance of a walker for approximately 250 feet. She desaturated immediately upon standing up, down to 81%. She continued to periodically desaturate with activity, and required 2L NC at rest and 4L with activity. She claims not to feel dyspneic, rating a 5. Recommendation: 2L at rest 4L with activity Latia Rosas, ERIK PATIENT: JANIYA NOE ACCOUNT: [id number] : 1945 LOCATION: [address] [place] [address] AGE: 74 SEX: F EXAM STATUS: ADM IN ORD. PHYSICIAN: GENTRY FISHMAN MD REASON: persistent infiltrates PROCEDURE: CT CHEST WO CONTRAST CT CHEST WO CONTRAST Indication: Persistent infiltrates. Exposure: One or more of the following individualized dose reduction techniques were utilized for this examination: 1. Automated exposure control 2. Adjustment of the mA and/or kV according to patient size 3. Use of iterative reconstruction technique. Technique: Standard imaging without intravenous contrast. Comparison: None, correlation with chest x-ray of prior day. FINDINGS: Aorta is calcified, without aneurysm. Vascular exam otherwise limited on noncontrast exam. No evidence of significant thyroid mass. No pathologic axillary or mediastinal lymph node enlargement is seen. Coronary artery calcifications are seen. No significant pericardial effusion. Trace pleural effusion. Emphysematous changes in both lungs. Diffuse interstitial markings throughout both lungs, greater in the lung bases, likely due to a combination of chronic fibrosis and interstitial infiltrate. Some opacities have slightly nodular morphology. No dominant mass is seen. No evidence of pneumothorax. Trachea and mainstem bronchi are patent. Vertebral body height and alignment are intact. No evidence of aggressive bone destruction. Scans to the upper abdomen are limited by the technique. There is oral contrast within the colon. Calcified mass in the right kidney measures 18 x 13 mm, has a solid appearance. IMPRESSION: 1. Emphysema. 2. Diffuse pulmonary opacities, predominantly interstitial, likely due to a combination of chronic fibrosis and interstitial infiltrate, greatest at the lung bases. Some opacities have a slightly nodular morphology. Recommend short-term CT chest follow-up to document resolution. 3. Calcified mass in the upper pole the right kidney, recommend further workup such as with MRI of the kidneys or multiphase CT of the kidneys. Electronically signed by: Kev Anthony MD (09/22/2019 12:39 PM) [id number] DICTATED and SIGNED BY: KEV ANTHONY MD DATE: 09/22/19 1239 PATIENT: JANIYA NOE ACCOUNT: [id number] : 1945 LOCATION: [facility] AGE: 75 SEX: F EXAM STATUS: ADM IN ORD. PHYSICIAN: GENTRY FISHMAN MD REASON: Pneumonia PROCEDURE: PORTABLE CHEST 1V EXAMINATION: Chest radiograph. VIEWS: Single AP view COMPARISON: 03/13/2021 INDICATION:75 years, Female, pneumonia. FINDINGS: Stable cardiomediastinal silhouette. Extensive bilateral airspace disease appears increased in the right lower lobe and decrease in the right perihilar and upper lobe. Associated right perihilar subsegmental atelectasis. Similar scarring or atelectasis of bilateral costophrenic angles. No pneumothorax or sizable pleural effusion. No acute osseous process. IMPRESSION: Extensive bilateral airspace disease with improved aeration in the right upper lobe and worsening opacification in the right lower lobe. Electronically signed by: Boone Flannery DO (03/19/2021 8:51 AM) [id number] DICTATED and SIGNED BY: BOONE FLANNERY DO DATE: 03/19/21 [id number] Laboratory Tests Test 03/20/21 05:50 Sodium Level 139 mmol/L (136-145) Potassium Level 3.6 mmol/L (3.5-5.1) Chloride Level 102 mmol/L (98-107) Carbon Dioxide Level 35 mmol/L (21-32) Anion Gap 2 (6-14) Blood Urea Nitrogen 4 mg/dL (7-20) Creatinine 0.6 mg/dL (0.6-1.0) Estimated GFR (Cockcroft-Gault) 117.9 BUN/Creatinine Ratio 7 (6-20) Glucose Level 64 mg/dL (70-99) Calcium Level 8.4 mg/dL (8.5-10.1) Total Bilirubin 0.2 mg/dL (0.2-1.0) Aspartate Amino Transf (AST/SGOT) 21 U/L (15-37) Alanine Aminotransferase (ALT/SGPT) 16 U/L (14-59) Alkaline Phosphatase 77 U/L (46-116) Creatine Kinase 49 U/L (26-192) Total Protein 5.5 g/dL (6.4-8.2) Albumin 1.9 g/dL (3.4-5.0) Albumin/Globulin Ratio 0.5 (1.0-1.7) Assessment and Plan Assessmemt and Plan Problems Medical Problems: (1) Acute renal failure Status: Acute (2) Hyponatremia Status: Acute (3) Pneumonia Status: Acute Comment Review of Relevant I have reviewed the following items kelvin (where applicable) has been applied. Labs Laboratory Tests Test 03/19/21 05:50 03/20/21 05:50 Sodium Level 140 mmol/L (136-145) 139 mmol/L (136-145) Potassium Level 2.9 mmol/L (3.5-5.1) 3.6 mmol/L (3.5-5.1) Chloride Level 100 mmol/L (98-107) 102 mmol/L (98-107) Carbon Dioxide Level 35 mmol/L (21-32) 35 mmol/L (21-32) Anion Gap 5 (6-14) 2 (6-14) Blood Urea Nitrogen 5 mg/dL (7-20) 4 mg/dL (7-20) Creatinine 0.7 mg/dL (0.6-1.0) 0.6 mg/dL (0.6-1.0) Estimated GFR (Cockcroft-Gault) 98.7 117.9 Glucose Level 73 mg/dL (70-99) 64 mg/dL (70-99) Calcium Level 8.1 mg/dL (8.5-10.1) 8.4 mg/dL (8.5-10.1) Phosphorus Level 2.0 mg/dL (2.6-4.7) Magnesium Level 1.8 mg/dL (1.8-2.4) BUN/Creatinine Ratio 7 (6-20) Total Bilirubin 0.2 mg/dL (0.2-1.0) Aspartate Amino Transf (AST/SGOT) 21 U/L (15-37) Alanine Aminotransferase (ALT/SGPT) 16 U/L (14-59) Alkaline Phosphatase 77 U/L (46-116) Creatine Kinase 49 U/L (26-192) Total Protein 5.5 g/dL (6.4-8.2) Albumin 1.9 g/dL (3.4-5.0) Albumin/Globulin Ratio 0.5 (1.0-1.7) Laboratory Tests Test 03/20/21 05:50 Sodium Level 139 mmol/L (136-145) Potassium Level 3.6 mmol/L (3.5-5.1) Chloride Level 102 mmol/L (98-107) Carbon Dioxide Level 35 mmol/L (21-32) Anion Gap 2 (6-14) Blood Urea Nitrogen 4 mg/dL (7-20) Creatinine 0.6 mg/dL (0.6-1.0) Estimated GFR (Cockcroft-Gault) 117.9 BUN/Creatinine Ratio 7 (6-20) Glucose Level 64 mg/dL (70-99) Calcium Level 8.4 mg/dL (8.5-10.1) Total Bilirubin 0.2 mg/dL (0.2-1.0) Aspartate Amino Transf (AST/SGOT) 21 U/L (15-37) Alanine Aminotransferase (ALT/SGPT) 16 U/L (14-59) Alkaline Phosphatase 77 U/L (46-116) Creatine Kinase 49 U/L (26-192) Total Protein 5.5 g/dL (6.4-8.2) Albumin 1.9 g/dL (3.4-5.0) Albumin/Globulin Ratio 0.5 (1.0-1.7) Microbiology 03/14/21 Blood Culture - Final, Complete NO GROWTH AFTER 5 DAYS Medications Current Medications Sodium Chloride 1,000 ml @ 1,000 mls/hr 1X ONCE IV Last administered on 03/13/21at 20:00; Start 03/13/21 at 20:15; Stop 03/13/21 at 21:14; Status DC Ceftriaxone Sodium (Rocephin) 1 gm 1X ONCE IVP Last administered on 03/13/21at 21:16; Start 03/13/21 at 20:30; Stop 03/13/21 at 20:31; Status DC Azithromycin 250 ml @ 250 mls/hr 1X ONCE IV Last administered on 03/13/21at 20:30; Start 03/13/21 at 20:30; Stop 03/13/21 at 21:29; Status DC Ondansetron HCl (Zofran) 4 mg PRN Q8HRS PRN IVP NAUSEA/VOMITING; Start 03/13/21 at 20:15; Stop 03/14/21 at 20:14; Status Cancel Acetaminophen (Tylenol) 650 mg PRN Q4HRS PRN PO FEVER > 100.3'F; Start 03/13/21 at 20:15; Stop 03/14/21 at 20:14; Status Cancel Sennosides (Senna) 17.2 mg PRN BID PRN PO CONSTIPATION; Start 03/14/21 at 09:00 Docusate Sodium (Colace) 100 mg PRN DAILY PRN PO HARD STOOLS Last administered on 03/18/21at 17:48; Start 03/14/21 at 09:00 Ondansetron HCl (Zofran) 4 mg PRN Q6HRS PRN IVP NAUSEA/VOMITING; Start 03/14/21 at 09:00 Dextrose (Dextrose 50%-Water Syringe) 12.5 gm PRN Q15MIN PRN IV SEE COMMENTS; Start 03/14/21 at 09:00 Sodium Chloride 1,000 ml @ 100 mls/hr Q10H IV Last administered on 03/16/21at 06:09; Start 03/14/21 at 09:00; Stop 03/16/21 at 10:48; Status DC Acetaminophen (Tylenol) 650 mg PRN Q4HRS PRN PO TEMP OVER 100.4F OR HEADACHE Last administered on 03/18/21at 21:09; Start 03/14/21 at 09:00 Heparin Sodium (Porcine) (Heparin Sodium) 5,000 unit Q12HR SQ Last administered on 03/20/21at 09:09; Start 03/14/21 at 09:00 Azithromycin 500 mg/Sodium Chloride 250 ml @ 250 mls/hr Q24H IV Last administered on 03/18/21at 20:00; Start 03/14/21 at 20:00; Stop 03/19/21 at 15:49; Status DC Ceftriaxone Sodium (Rocephin) 1 gm Q24H IVP Last administered on 03/15/21at 20:51; Start 03/14/21 at 21:00; Stop 03/16/21 at 10:43; Status DC Prochlorperazine Edisylate (Compazine) 10 mg PRN Q6HRS PRN IV NAUSEA/VOMITING- 2ND CHOICE; Start 03/14/21 at 09:00 Oxycodone/ Acetaminophen (Percocet 10/325) 1 tab PRN Q6HRS PRN PO PAIN Last administered on 03/20/21at 08:59; Start 03/14/21 at 20:45 Lactobacillus Rhamnosus (Culturelle) 1 cap BID PO Last administered on 03/20/21at 08:59; Start 03/15/21 at 21:00 Piperacillin Sod/ Tazobactam Sod (Zosyn Per Pharmacy) 1 each PRN DAILY PRN MC SEE COMMENTS; Start 03/16/21 at 10:45; Stop 03/19/21 at 10:15; Status DC Piperacillin Sod/ Tazobactam Sod (Zosyn Per Pharmacy) 1 each PRN DAILY PRN MC SEE COMMENTS; Start 03/16/21 at 10:45; Status UNV Piperacillin Sod/ Tazobactam Sod 2.25 gm/Sodium Chloride 50 ml @ 100 mls/hr Q6HRS IV Last administered on 03/19/21at 05:52; Start 03/16/21 at 12:00; Stop 03/19/21 at 10:18; Status DC Albuterol/ Ipratropium (Duoneb) 3 ml RTQID NEB Last administered on 03/20/21at 11:27; Start 03/16/21 at 12:00 Albuterol Sulfate (Ventolin Neb Soln) 2.5 mg PRN Q4HRS PRN NEB SHORTNESS OF BREATH; Start 03/16/21 at 11:00 Albuterol/ Ipratropium (Duoneb) 3 ml RTQID NEB ; Start 03/16/21 at 12:00; Stop 03/16/21 at 10:51; Status DC Budesonide (Pulmicort) 0.5 mg RTBID NEB Last administered on 03/20/21at 07:21; Start 03/16/21 at 11:00 Methylprednisolone Sodium Succinate (SOLU-Medrol 40MG VIAL) 40 mg 1X ONCE IV Last administered on 03/16/21at 12:10; Start 03/16/21 at 11:15; Stop 03/16/21 at 11:16; Status DC Magnesium Sulfate 50 ml @ 25 mls/hr 1X ONCE IV Last administered on 03/17/21at 11:47; Start 03/17/21 at 12:00; Stop 03/17/21 at 13:59; Status DC Zolpidem Tartrate (Ambien) 5 mg PRN QHS PRN PO INSOMNIA Last administered on 03/19/21at 21:21; Start 03/17/21 at 20:45 Magnesium Sulfate 50 ml @ 25 mls/hr 1X ONCE IV Last administered on 03/18/21at 21:30; Start 03/18/21 at 11:00; Stop 03/18/21 at 12:59; Status DC Potassium Chloride/Water 100 ml @ 100 mls/hr Q1H IV Last administered on 03/18/21at 21:09; Start 03/18/21 at 11:00; Stop 03/18/21 at 14:59; Status DC Sodium Phosphate 15 mmol/Sodium Chloride 105 ml @ 105 mls/hr 1X ONCE IV Last administered on 03/18/21at 11:57; Start 03/18/21 at 11:00; Stop 03/18/21 at 11:59; Status DC Potassium Chloride (Klor-Con) 30 meq 1X ONCE PO Last administered on 03/19/21at 10:10; Start 03/19/21 at 10:30; Stop 03/19/21 at 10:31; Status DC Amoxicillin/ Clavulanate Potassium (Augmentin 500/ 125mg) 1 tab BID PO Last administered on 03/20/21at 08:59; Start 03/19/21 at 21:00 Magnesium Sulfate 50 ml @ 25 mls/hr 1X ONCE IV Last administered on 03/19/21at 12:13; Start 03/19/21 at 12:00; Stop 03/19/21 at 13:59; Status DC Potassium Phosphate 13.6 mmol/Sodium Chloride 254.5333 ml @ 127.... Q2H IV Last administered on 03/19/21at 14:04; Start 03/19/21 at 12:00; Stop 03/19/21 at 15:59; Status DC Active Scripts Active Prednisone (Prednisone) 10 Mg Tablet 3 Tab PO DAILY 5 Days Duoneb 0.5-3(2.5) Mg/3 Ml (Albuterol/Ipratropium) 3 Ml Ampul.neb 3 Ml NEB Q4HRS 30 Days Budesonide 0.5 Mg/2 Ml Ampul.neb 0.5 Mg NEB RTBID 30 Days Amox Tr-K Clv 500-125 Mg Tab (Amoxicillin/Potassium Clav) 1 Each Tablet 1 Tab PO BID 5 Days Reported Percocet 10-325 Mg Tablet (Oxycodone/Acetaminophen) 1 Each Tablet 1 Tab PO PRN Q4-6HRS PRN MDD 6 Tablet(s) 5 Days Alprazolam 0.5 Mg Tablet 1 Tab PO DAILY PRN Gabapentin 600 Mg Tablet 600 Mg PO TID Vitals/I & O Vital Sign - Last 24 Hours 03/19/21 03/19/21 03/19/21 03/19/21 15:00 15:12 15:42 15:43 Temp 98.1 98.1 Pulse 86 Resp 18 18 17 B/P (MAP) 126/61 (82) Pulse Ox 94 95 O2 Delivery Nasal Cannula Nasal Cannula Nasal Cannula Nasal Cannula O2 Flow Rate 2.0 2.0 2.0 2.0 03/19/21 03/19/21 03/19/21 03/19/21 19:00 20:00 20:28 21:21 Temp 98.0 98.0 Pulse 86 Resp 18 19 B/P (MAP) 128/73 (91) Pulse Ox 94 95 O2 Delivery Nasal Cannula Nasal Cannula Nasal Cannula Nasal Cannula O2 Flow Rate 2.0 2.0 2.0 2.0 03/19/21 03/19/21 03/20/21 03/20/21 21:50 23:55 03:00 07:00 Temp 97.7 97.5 98.6 97.7 97.5 98.6 Pulse 100 95 92 Resp 19 18 18 18 B/P (MAP) 136/80 (98) 131/73 (92) 151/83 (105) Pulse Ox 91 98 98 O2 Delivery Nasal Cannula Nasal Cannula Nasal Cannula Room Air O2 Flow Rate 2.0 2.0 2.0 03/20/21 03/20/21 03/20/21 03/20/21 07:22 08:59 09:29 11:00 Temp 98.1 98.1 Pulse 88 Resp 18 18 18 B/P (MAP) 134/65 (88) Pulse Ox 99 98 O2 Delivery Nasal Cannula Room Air Nasal Cannula Nasal Cannula O2 Flow Rate 2.0 2.0 2.0 03/20/21 11:27 Pulse Ox 97 O2 Delivery Nasal Cannula O2 Flow Rate 2.0 Intake and Output 03/19/21 03/19/21 03/20/21 15:00 23:00 07:00 Intake Total 540 ml 300 ml Output Total 201 ml Balance 540 ml 300 ml -201 ml Justicifation of Admission Dx: Justifications for Admission: Justification of Admission Dx: Yes Acute Renal Failure: RF Can't Be Managed Outpt DANIE BARCLAY MD Mar 20, 2021 11:58
[2021-03-20 15:00] VITALS: BP 128/61
[2021-03-20 19:00] VITALS: BP 138/68
[2021-03-20] MEDS: ALPRAZolam 0.5 MG TABLET PO PRN (22:19)
[2021-03-20 23:39] VITALS: BP 133/65
[2021-03-21 03:11] VITALS: BP 131/71
[2021-03-21 05:18] LABS: BASO # 0.1 x10^3/uL (0.0-0.2); BASO % 0 % (0-3); EOS # 0.3 x10^3/uL (0.0-0.7); EOS % 2 % (0-3); HEMATOCRIT 29.2 % (36.0-47.0); HEMOGLOBIN 9.7 g/dL (12.0-15.5); LYMPH # 1.7 x10^3/uL (1.0-4.8); LYMPH % 11 % (24-48); MEAN CORPUSCULAR HEMOGLOBIN 30 pg (25-35); MEAN CORPUSCULAR HGB CONC 33 g/dL (31-37); MEAN CORPUSCULAR VOLUME 89 fL (79-100); MONO # 0.6 x10^3/uL (0.0-1.1); MONO % 3 % (0-9); NEUT # 13.6 x10^3/uL (1.8-7.7); NEUT % 84 % (31-73); PLATELET COUNT 459 x10^3/uL (140-400); RED BLOOD COUNT 3.27 x10^6/uL (3.50-5.40); RED CELL DISTRIBUTION WIDTH 15.1 % (11.5-14.5); WHITE BLOOD COUNT 16.2 x10^3/uL (4.0-11.0)
[2021-03-21 07:00] VITALS: BP 126/70
--- NOTE | 2021-03-21 07:19 | PDOC ---
PULMONARY PROGRESS NOTES DATE: 03/21/21 TIME: 07:15 Subjective denies sob has occ cough tired Vitals Vital Signs Date Time Temp Pulse Resp B/P (MAP) Pulse Ox O2 Delivery O2 Flow Rate FiO2 03/21/21 03:11 97.6 83 20 131/71 (91) 94 Nasal Cannula 2.0 97.6 ROS: No Nausea General: Alert, No acute distress Lungs: Other (Decreased breath sounds bilaterally) Cardiovascular: S1, S2 Abdomen: Soft, Non-tender, Other Neuro Exam: Alert Extremities: No Edema Skin: Warm Labs Laboratory Tests Test 03/20/21 05:50 03/21/21 05:00 Sodium Level 139 mmol/L (136-145) Potassium Level 3.6 mmol/L (3.5-5.1) Chloride Level 102 mmol/L (98-107) Carbon Dioxide Level 35 mmol/L (21-32) Anion Gap 2 (6-14) Blood Urea Nitrogen 4 mg/dL (7-20) Creatinine 0.6 mg/dL (0.6-1.0) Estimated GFR (Cockcroft-Gault) 117.9 BUN/Creatinine Ratio 7 (6-20) Glucose Level 64 mg/dL (70-99) Calcium Level 8.4 mg/dL (8.5-10.1) Total Bilirubin 0.2 mg/dL (0.2-1.0) Aspartate Amino Transf (AST/SGOT) 21 U/L (15-37) Alanine Aminotransferase (ALT/SGPT) 16 U/L (14-59) Alkaline Phosphatase 77 U/L (46-116) Creatine Kinase 49 U/L (26-192) Total Protein 5.5 g/dL (6.4-8.2) Albumin 1.9 g/dL (3.4-5.0) Albumin/Globulin Ratio 0.5 (1.0-1.7) White Blood Count 16.2 x10^3/uL (4.0-11.0) Red Blood Count 3.27 x10^6/uL (3.50-5.40) Hemoglobin 9.7 g/dL (12.0-15.5) Hematocrit 29.2 % (36.0-47.0) Mean Corpuscular Volume 89 fL (79-100) Mean Corpuscular Hemoglobin 30 pg (25-35) Mean Corpuscular Hemoglobin Concent 33 g/dL (31-37) Red Cell Distribution Width 15.1 % (11.5-14.5) Platelet Count 459 x10^3/uL (140-400) Neutrophils (%) (Auto) 84 % (31-73) Lymphocytes (%) (Auto) 11 % (24-48) Monocytes (%) (Auto) 3 % (0-9) Eosinophils (%) (Auto) 2 % (0-3) Basophils (%) (Auto) 0 % (0-3) Neutrophils # (Auto) 13.6 x10^3/uL (1.8-7.7) Lymphocytes # (Auto) 1.7 x10^3/uL (1.0-4.8) Monocytes # (Auto) 0.6 x10^3/uL (0.0-1.1) Eosinophils # (Auto) 0.3 x10^3/uL (0.0-0.7) Basophils # (Auto) 0.1 x10^3/uL (0.0-0.2) Laboratory Tests Test 03/21/21 05:00 White Blood Count 16.2 x10^3/uL (4.0-11.0) Red Blood Count 3.27 x10^6/uL (3.50-5.40) Hemoglobin 9.7 g/dL (12.0-15.5) Hematocrit 29.2 % (36.0-47.0) Mean Corpuscular Volume 89 fL (79-100) Mean Corpuscular Hemoglobin 30 pg (25-35) Mean Corpuscular Hemoglobin Concent 33 g/dL (31-37) Red Cell Distribution Width 15.1 % (11.5-14.5) Platelet Count 459 x10^3/uL (140-400) Neutrophils (%) (Auto) 84 % (31-73) Lymphocytes (%) (Auto) 11 % (24-48) Monocytes (%) (Auto) 3 % (0-9) Eosinophils (%) (Auto) 2 % (0-3) Basophils (%) (Auto) 0 % (0-3) Neutrophils # (Auto) 13.6 x10^3/uL (1.8-7.7) Lymphocytes # (Auto) 1.7 x10^3/uL (1.0-4.8) Monocytes # (Auto) 0.6 x10^3/uL (0.0-1.1) Eosinophils # (Auto) 0.3 x10^3/uL (0.0-0.7) Basophils # (Auto) 0.1 x10^3/uL (0.0-0.2) Medications Active Scripts Medications Dose Route/Sig Max Daily Dose Days Date Category Prednisone (Prednisone) 10 Mg Tablet 3 Tab PO DAILY 5 09/18/19 Rx Duoneb 0.5-3(2.5) Mg/3 Ml (Albuterol/Ipratropium) 3 Ml Ampul.neb 3 Ml NEB Q4HRS 30 09/18/19 Rx Budesonide 0.5 Mg/2 Ml Ampul.neb 0.5 Mg NEB RTBID 30 09/18/19 Rx Amox Tr-K Clv 500-125 Mg Tab (Amoxicillin/Potassium Clav) 1 Each Tablet 1 Tab PO BID 5 09/18/19 Rx Percocet 10-325 Mg Tablet (Oxycodone/Acetaminophen) 1 Each Tablet 1 Tab PO PRN Q4-6HRS PRN MDD 6 Tablet(s) 5 09/18/19 Reported Alprazolam 0.5 Mg Tablet 1 Tab PO DAILY PRN 09/18/19 Reported Gabapentin 600 Mg Tablet 600 Mg PO TID 09/18/19 Reported Impression . 1. Acute hypoxic respiratory failure likely secondary to suspected gram- negative pneumonia. Could have some component of aspiration as well due to encephalopathy. 2. 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 The patient is very emaciated. 3. Abnormal chest x-ray consistent with pneumonia. 4. Acute kidney injury. 5. Leukocytosis secondary to pneumonia. Plan . 1. Continue abx for total 7 days on augmentin now 2. Follow-up chest x-ray from 03/19 was reviewed. There is an improvement in right upper lobe infiltrate. There is an increase in a small right lower lobe pleural effusion. ct ordered by primary reviewed Patchy bilateral consolidations, likely multifocal infection. 3. Deep venous thrombosis prophylaxis. 4. keep saturation 90 and above. 6 min walk at dc 5. bronchodilators. ics 6. Discussed with PATRICK. AMELIE FRANK MD Mar 21, 2021 07:19
[2021-03-21] MEDS: AMOXICILLIN/K CLAV 500/125MG TABLET. PO SCH (07:43)
[2021-03-21] MEDS: LACTOBACILLUS RHAMNOSUS GG 1 CAPSULE. PO SCH (07:43)
[2021-03-21] MEDS: oxyCODONE/APAP 10/325 1 TAB TABLET PO PRN ×2 (07:43→14:30)
[2021-03-21] MEDS: HEPARIN for SUB-Q USE 5,000 UNIT/ML VIAL. SQ SCH (07:46)
[2021-03-21] MEDS: BUDESONIDE 0.5 MG/2 ML NEBU. NEB SCH (08:05)
[2021-03-21] MEDS: IPRATRPIUM/ALBUTEROL 0.5/2.5MG 3 ML NEBU. NEB SCH ×2 (08:05→11:54)
--- NOTE | 2021-03-21 09:45 | RAD ---
CT CHEST_ABDOMEN_ AND PELVIS WITHOUT CONTRAST INDICATION: CALCIFIED MASS, NODULE COMPARISON: Chest radiograph 03/19/2021. CT chest 09/22/2019. TECHNIQUE: Multiple contiguous axial images were obtained throughout the chest, abdomen, and pelvis without the use of IV contrast. Axial images were reformatted into coronal and sagittal planes. One or more of th e following dose reduction techniques were utilized: Automated exposure control (AEC), Adjustment of mA and/or kV according to patient size, Use of iterative reconstruction technique such as ASiR, CT sc an done according to ALARA and image gently/image wisely. FINDINGS: The thyroid is symmetric. There is no axillary, mediastinal, or hilar adenopathy, although evaluatio n of the kitty is limited without IV contrast. The thoracic aorta diameter is normal. Cardiomegaly. No pericardial effusion. Coronary artery atheros clerotic disease. There is no pericardial effusion. The central airways are patent. Patchy bilateral consolidations. No pleural abnormality. Centrilobula r emphysema. Mild nonspecific tunnel free fluid. Evaluation of solid abdominal viscera is limited without the use of IV contrast. However, the liver, gallbladder, spleen, pancreas, and adrenal glands are unremarkable. Right renal cyst, better charac terized on recent renal ultrasound report. There is no significant mesenteric or retroperitoneal elsa nopathy identified, though evaluation is limited without intravenous contrast. Visualized portions o f the bowel are grossly unremarkable. Diffuse aortoiliac atherosclerotic disease. The bladder and distal ureters are unremarkable. There is no significant pelvic ascites. No signifi cant iliac or inguinal adenopathy is identified. Degenerative changes of the spine. IMPRESSION: 1. Patchy bilateral consolidations, likely multifocal infection. 2. Mild abdominal free fluid, nonspecific. 3. Stable right renal partially calcified cyst, seen better on recent renal ultrasound. Electronically signed by: Ethan Stanford MD (03/21/2021 9:43 AM) [facility]
[2021-03-21 10:49] VITALS: BP 121/59
[2021-03-21] MEDS: ACETAMINOPHEN 325 MG TABLET. PO PRN (11:26)
[2021-03-21] MEDS: ALPRAZolam 0.5 MG TABLET PO PRN (11:26)
--- NOTE | 2021-03-21 11:48 | PDOC ---
PROGRESS NOTES Date of Service: DATE: 03/21/21 TIME: 11:46 Chief Complaint Chief Complaint IMPRESSION Acute metabolic and infectious encephalopathy Atypical bilateral pneumonia, likely gram-negative organisms, possible aspiration pneumonia /Extensive bilateral airspace disease. Extensive bilateral airspace disease with improved aeration in the right upper lobe and worsening opacification in the right lower lobe. 8-20 CXR Elevated BNP - likely due to renal failure Acute electrolyte derangementhyponatremia, hypochloremia OBEY due to vasomotor nephropathy CR 4.8 ON ADMIT Severe symptomatic hyponatremia suggestive of low solute intake Elevated creatinine kinase due to rhabdomyolysis Bedbound status Severe protein malnutrition Elevated AST ALT ratio No hydronephrosis. Urinary bladder distention. Extensive bilateral airspace disease with improved aeration in the right upper lobe and worsening opacification in the right lower lobe. 8-20 Heparin for DVT prophylaxis N.p.o. if altered mental status Full code Discussed with RN and ZEINAB Dispo inpatient management as above pulm consult History of Present Illness History of Present Illness Ms Noe is a 74-year-old -[place] female with a history of COPD and smoking, peripheral neuropathy, anxiety, congestive heart failure and anemia who presented with altered mental status and generalized weakness. Patient lives at home with her family. Patient's family called 911 due to patient's generalized weakness and altered mental status. Family states patient has been in bed all day, but had fallen out of the bed at one point a few days prior to presentation. Patient did not want to come to the ED. Upon EMS arrival patient was noted to have an oxygen saturation in the 80s. Creatinine greater than 4 on admit CK urine thousand. Family says that she just sits at home smokes and drinks Coca-Cola all day. In ER patient was switched over to 2 L nasal cannula and still remains 100% on room air. During my exam patient does have mild coug but her lungs are clear bilateral and her heart is regular. She lives at home with her mother and son. She denies contact with persons who have been ill. She does not have any pets. Denies recent traveling. Seen by Pulmonology and nephrology in consultation. Planned to have COVID 19 vaccination on 03/16 03/15: Cr improving She is on 3L NCO2 at rest today. No CP. Still dyspneic, but denies SOB. Developed some brownish sputum. Pulmonology change antibiotics to Zosyn. Creatinine has been improving. 03/17 Cr improving 0.7 antibiotics IV Zosyn. Acute metabolic and infectious encephalopathy Atypical bilateral pneumonia, likely gram-negative organisms, possible aspiration pneumonia /Extensive bilateral airspace disease. Elevated BNP - likely due to renal failure Acute electrolyte derangementhyponatremia, hypochloremia OBEY due to vasomotor nephropathy CR 4.8 ON ADMIT Severe symptomatic hyponatremia suggestive of low solute intake Elevated creatinine kinase due to rhabdomyolysis Bedbound status Severe protein malnutrition Elevated AST ALT ratio No hydronephrosis. Urinary bladder distention. ELEVATED [id number], CONT TO TREND POSSIBLE RHABDOMYOLYSIS D/W RN 03/18 Cr improving Still dyspneic, but denies SOB. change antibiotics to Zosyn. Acute metabolic and infectious encephalopathy Atypical bilateral pneumonia, likely gram-negative organisms, possible aspiration pneumonia /Extensive bilateral airspace disease. Elevated BNP - likely due to renal failure Acute electrolyte derangementhyponatremia, hypochloremia OBEY due to vasomotor nephropathy CR 4.8 ON ADMIT Severe symptomatic hyponatremia suggestive of low solute intake Elevated creatinine kinase due to rhabdomyolysis Bedbound status Severe protein malnutrition Elevated AST ALT ratio No hydronephrosis. Urinary bladder distention. ELEVATED [id number], CONT TO TREND POSSIBLE RHABDOMYOLYSIS D/W RN 03/19 Cr improving CR 2.9 REPLACED Still dyspneic, but denies SOB. change antibiotics to Zosyn. Acute metabolic and infectious encephalopathy Atypical bilateral pneumonia, likely gram-negative organisms, possible aspiration pneumonia /Extensive bilateral airspace disease. Elevated BNP - likely due to renal failure Acute electrolyte derangementhyponatremia, hypochloremia OBEY due to vasomotor nephropathy CR 4.8 ON ADMIT Severe symptomatic hyponatremia suggestive of low solute intake Elevated creatinine kinase due to rhabdomyolysis Bedbound status Severe protein malnutrition Elevated AST ALT ratio No hydronephrosis. Urinary bladder distention. ELEVATED [id number], CONT TO TREND POSSIBLE RHABDOMYOLYSIS D/W RN Antibiotics can be deescalated. Zosyn can be changed to p.o. Augmentin. * 2 weeks Discharge Recommendations * [facility] Unit Discharge Recommendation - DME * 4 wheeled walker needed * in order to complete ADLs 03/20 Patchy bilateral consolidations, likely multifocal infection. DESAT TO 81% ON ROOM AIR BY JUST STANDING UP FROM BED 8-21 D/W RT increase in a small right lower lobe pleural effusion. 6 MIN WALK AT D/C NOW ON 2 LITERS NC Extensive bilateral airspace disease with improved aeration in the right upper lobe and worsening opacification in the right lower lobe. 8-20 CXR Cr improving CR 2.9 REPLACED K Still dyspneic, but denies SOB. change antibiotics to Zosyn. Acute metabolic and infectious encephalopathy Atypical bilateral pneumonia, likely gram-negative organisms, possible aspiration pneumonia /Extensive bilateral airspace disease. Elevated BNP - likely due to renal failure Acute electrolyte derangementhyponatremia, hypochloremia OBEY due to vasomotor nephropathy CR 4.8 ON ADMIT Severe symptomatic hyponatremia suggestive of low solute intake Elevated creatinine kinase due to rhabdomyolysis Bedbound status Severe protein malnutrition Elevated AST ALT ratio No hydronephrosis. Urinary bladder distention. ELEVATED [id number], CONT TO TREND POSSIBLE RHABDOMYOLYSIS D/W RN POSSIBLE component of aspiration as well due to encephalopathy. Diffuse pulmonary opacities, predominantly interstitial, likely due to a combination of chronic fibrosis and interstitial infiltrate, greatest at the lung bases. Some opacities have a slightly nodular morphology. Recommend short- term CT chest follow-up to document resolution. FROM 2- Antibiotics can be deescalated. Zosyn can be changed to p.o. Augmentin. * 2 weeks Discharge Recommendations FAMILY REFUSED AMA * [facility] Discharge Recommendation - DME * 4 wheeled walker needed * in order to complete ADLs 03/21 D/C PLANNING 40 MIN FAMILY IS ADAMANT THAT SHE CAN GO HOME TODAY, REFUSING SNF AMA, HIGH RISK DISCHARGE , cONSIDER PALLIATIVE DETENTION VISIT DAVIDA, SEVERE PRB END STAGE COPD Patchy bilateral consolidations, likely multifocal infection. DESAT TO 81% ON ROOM AIR BY JUST STANDING UP FROM BED 8-21 D/W RT increase in a small right lower lobe pleural effusion. 6 MIN WALK AT D/C NOW ON 2 LITERS NC Extensive bilateral airspace disease with improved aeration in the right upper lobe and worsening opacification in the right lower lobe. 8-20 CXR Cr improving CR 2.9 REPLACED K Still dyspneic, but denies SOB. change antibiotics to Zosyn. Acute metabolic and infectious encephalopathy Atypical bilateral pneumonia, likely gram-negative organisms, possible aspiration pneumonia /Extensive bilateral airspace disease. Elevated BNP - likely due to renal failure Acute electrolyte derangementhyponatremia, hypochloremia OBEY due to vasomotor nephropathy CR 4.8 ON ADMIT Severe symptomatic hyponatremia suggestive of low solute intake Elevated creatinine kinase due to rhabdomyolysis Bedbound status Severe protein malnutrition Elevated AST ALT ratio No hydronephrosis. Urinary bladder distention. ELEVATED [id number], CONT TO TREND POSSIBLE RHABDOMYOLYSIS D/W RN POSSIBLE component of aspiration as well due to encephalopathy. Diffuse pulmonary opacities, predominantly interstitial, likely due to a combination of chronic fibrosis and interstitial infiltrate, greatest at the lung bases. Some opacities have a slightly nodular morphology. Recommend short- term CT chest follow-up to document resolution. FROM 2-21 Antibiotics can be deescalated. Zosyn can be changed to p.o. Augmentin. * 2 weeks Discharge Recommendations FAMILY REFUSED AMA * [facility] Discharge Recommendation - DME * 4 wheeled walker needed * in order to complete ADLs Vitals Vitals Vital Signs Date Time Temp Pulse Resp B/P (MAP) Pulse Ox O2 Delivery O2 Flow Rate FiO2 03/21/21 10:49 98.9 92 18 121/59 (79) 90 Nasal Cannula 2.0 98.9 Physical Exam General: Alert, Oriented X3, Cooperative, mild distress Heart: Regular rate, Normal S1, Normal S2 Lungs: Other (Decreased breath sounds bilaterally) Abdomen: Normal bowel sounds, Soft, No tenderness Extremities: No clubbing, No cyanosis Skin: No breakdown Labs LABS Signed PATIENT: JANIYA NOE ACCOUNT: [id number] : 1945 LOCATION: [address] [place] [address] AGE: 75 SEX: F EXAM STATUS: ADM IN ORD. PHYSICIAN: DANIE BARCLAY MD REASON: CALCIFIED MASS, NODULE PROCEDURE: CT CHEST ABDOMEN PELVIS WO CT CHEST_ABDOMEN_ AND PELVIS WITHOUT CONTRAST INDICATION: CALCIFIED MASS, NODULE COMPARISON: Chest radiograph 03/19/2021. CT chest 09/22/2019. TECHNIQUE: Multiple contiguous axial images were obtained throughout the chest, abdomen, and pelvis without the use of IV contrast. Axial images were reformatted into coronal and sagittal planes. One or more of the following dose reduction techniques were utilized: Automated exposure control (AEC), Adjustment of mA and/or kV according to patient size, Use of iterative reconstruction technique such as ASiR, CT scan done according to ALARA and image gently/image wisely. FINDINGS: The thyroid is symmetric. There is no axillary, mediastinal, or hilar adenopathy, although evaluation of the kitty is limited without IV contrast. The thoracic aorta diameter is normal. Cardiomegaly. No pericardial effusion. Coronary artery atherosclerotic disease. There is no pericardial effusion. The central airways are patent. Patchy bilateral consolidations. No pleural abnormality. Centrilobular emphysema. Mild nonspecific tunnel free fluid. Evaluation of solid abdominal viscera is limited without the use of IV contrast. However, the liver, gallbladder, spleen, pancreas, and adrenal glands are unremarkable. Right renal cyst, better characterized on recent renal ultrasound report. There is no significant mesenteric or retroperitoneal adenopathy identified, though evaluation is limited without intravenous contrast. Visualized portions of the bowel are grossly unremarkable. Diffuse aortoiliac atherosclerotic disease. The bladder and distal ureters are unremarkable. There is no significant pelvic ascites. No significant iliac or inguinal adenopathy is identified. Degenerative changes of the spine. IMPRESSION: 1. Patchy bilateral consolidations, likely multifocal infection. 2. Mild abdominal free fluid, nonspecific. 3. Stable right renal partially calcified cyst, seen better on recent renal ultrasound. Electronically signed by: Jordi Stanofrd MD (03/21/2021 9:43 AM) [facility] DICTATED and SIGNED BY: JORDI STANFORD MD DATE: 03/21/21 [id number] Laboratory Tests Test 03/21/21 05:00 White Blood Count 16.2 x10^3/uL (4.0-11.0) Red Blood Count 3.27 x10^6/uL (3.50-5.40) Hemoglobin 9.7 g/dL (12.0-15.5) Hematocrit 29.2 % (36.0-47.0) Mean Corpuscular Volume 89 fL (79-100) Mean Corpuscular Hemoglobin 30 pg (25-35) Mean Corpuscular Hemoglobin Concent 33 g/dL (31-37) Red Cell Distribution Width 15.1 % (11.5-14.5) Platelet Count 459 x10^3/uL (140-400) Neutrophils (%) (Auto) 84 % (31-73) Lymphocytes (%) (Auto) 11 % (24-48) Monocytes (%) (Auto) 3 % (0-9) Eosinophils (%) (Auto) 2 % (0-3) Basophils (%) (Auto) 0 % (0-3) Neutrophils # (Auto) 13.6 x10^3/uL (1.8-7.7) Lymphocytes # (Auto) 1.7 x10^3/uL (1.0-4.8) Monocytes # (Auto) 0.6 x10^3/uL (0.0-1.1) Eosinophils # (Auto) 0.3 x10^3/uL (0.0-0.7) Basophils # (Auto) 0.1 x10^3/uL (0.0-0.2) Assessment and Plan Assessmemt and Plan Problems Medical Problems: (1) Acute renal failure Status: Acute (2) Hyponatremia Status: Acute (3) Pneumonia Status: Acute Comment Review of Relevant I have reviewed the following items kelvin (where applicable) has been applied. Labs Laboratory Tests Test 03/20/21 05:50 03/21/21 05:00 Sodium Level 139 mmol/L (136-145) Potassium Level 3.6 mmol/L (3.5-5.1) Chloride Level 102 mmol/L (98-107) Carbon Dioxide Level 35 mmol/L (21-32) Anion Gap 2 (6-14) Blood Urea Nitrogen 4 mg/dL (7-20) Creatinine 0.6 mg/dL (0.6-1.0) Estimated GFR (Cockcroft-Gault) 117.9 BUN/Creatinine Ratio 7 (6-20) Glucose Level 64 mg/dL (70-99) Calcium Level 8.4 mg/dL (8.5-10.1) Total Bilirubin 0.2 mg/dL (0.2-1.0) Aspartate Amino Transf (AST/SGOT) 21 U/L (15-37) Alanine Aminotransferase (ALT/SGPT) 16 U/L (14-59) Alkaline Phosphatase 77 U/L (46-116) Creatine Kinase 49 U/L (26-192) Total Protein 5.5 g/dL (6.4-8.2) Albumin 1.9 g/dL (3.4-5.0) Albumin/Globulin Ratio 0.5 (1.0-1.7) White Blood Count 16.2 x10^3/uL (4.0-11.0) Red Blood Count 3.27 x10^6/uL (3.50-5.40) Hemoglobin 9.7 g/dL (12.0-15.5) Hematocrit 29.2 % (36.0-47.0) Mean Corpuscular Volume 89 fL (79-100) Mean Corpuscular Hemoglobin 30 pg (25-35) Mean Corpuscular Hemoglobin Concent 33 g/dL (31-37) Red Cell Distribution Width 15.1 % (11.5-14.5) Platelet Count 459 x10^3/uL (140-400) Neutrophils (%) (Auto) 84 % (31-73) Lymphocytes (%) (Auto) 11 % (24-48) Monocytes (%) (Auto) 3 % (0-9) Eosinophils (%) (Auto) 2 % (0-3) Basophils (%) (Auto) 0 % (0-3) Neutrophils # (Auto) 13.6 x10^3/uL (1.8-7.7) Lymphocytes # (Auto) 1.7 x10^3/uL (1.0-4.8) Monocytes # (Auto) 0.6 x10^3/uL (0.0-1.1) Eosinophils # (Auto) 0.3 x10^3/uL (0.0-0.7) Basophils # (Auto) 0.1 x10^3/uL (0.0-0.2) Laboratory Tests Test 03/21/21 05:00 White Blood Count 16.2 x10^3/uL (4.0-11.0) Red Blood Count 3.27 x10^6/uL (3.50-5.40) Hemoglobin 9.7 g/dL (12.0-15.5) Hematocrit 29.2 % (36.0-47.0) Mean Corpuscular Volume 89 fL (79-100) Mean Corpuscular Hemoglobin 30 pg (25-35) Mean Corpuscular Hemoglobin Concent 33 g/dL (31-37) Red Cell Distribution Width 15.1 % (11.5-14.5) Platelet Count 459 x10^3/uL (140-400) Neutrophils (%) (Auto) 84 % (31-73) Lymphocytes (%) (Auto) 11 % (24-48) Monocytes (%) (Auto) 3 % (0-9) Eosinophils (%) (Auto) 2 % (0-3) Basophils (%) (Auto) 0 % (0-3) Neutrophils # (Auto) 13.6 x10^3/uL (1.8-7.7) Lymphocytes # (Auto) 1.7 x10^3/uL (1.0-4.8) Monocytes # (Auto) 0.6 x10^3/uL (0.0-1.1) Eosinophils # (Auto) 0.3 x10^3/uL (0.0-0.7) Basophils # (Auto) 0.1 x10^3/uL (0.0-0.2) Microbiology 03/14/21 Blood Culture - Final, Complete NO GROWTH AFTER 5 DAYS Medications Current Medications Sodium Chloride 1,000 ml @ 1,000 mls/hr 1X ONCE IV Last administered on 03/13/21at 20:00; Start 03/13/21 at 20:15; Stop 03/13/21 at 21:14; Status DC Ceftriaxone Sodium (Rocephin) 1 gm 1X ONCE IVP Last administered on 03/13/21at 21:16; Start 03/13/21 at 20:30; Stop 03/13/21 at 20:31; Status DC Azithromycin 250 ml @ 250 mls/hr 1X ONCE IV Last administered on 03/13/21at 20:30; Start 03/13/21 at 20:30; Stop 03/13/21 at 21:29; Status DC Ondansetron HCl (Zofran) 4 mg PRN Q8HRS PRN IVP NAUSEA/VOMITING; Start 03/13/21 at 20:15; Stop 03/14/21 at 20:14; Status Cancel Acetaminophen (Tylenol) 650 mg PRN Q4HRS PRN PO FEVER > 100.3'F; Start 03/13/21 at 20:15; Stop 03/14/21 at 20:14; Status Cancel Sennosides (Senna) 17.2 mg PRN BID PRN PO CONSTIPATION; Start 03/14/21 at 09:00 Docusate Sodium (Colace) 100 mg PRN DAILY PRN PO HARD STOOLS Last administered on 03/18/21at 17:48; Start 03/14/21 at 09:00 Ondansetron HCl (Zofran) 4 mg PRN Q6HRS PRN IVP NAUSEA/VOMITING; Start 03/14/21 at 09:00 Dextrose (Dextrose 50%-Water Syringe) 12.5 gm PRN Q15MIN PRN IV SEE COMMENTS; Start 03/14/21 at 09:00 Sodium Chloride 1,000 ml @ 100 mls/hr Q10H IV Last administered on 03/16/21at 06:09; Start 03/14/21 at 09:00; Stop 03/16/21 at 10:48; Status DC Acetaminophen (Tylenol) 650 mg PRN Q4HRS PRN PO TEMP OVER 100.4F OR HEADACHE Last administered on 03/21/21at 11:26; Start 03/14/21 at 09:00 Heparin Sodium (Porcine) (Heparin Sodium) 5,000 unit Q12HR SQ Last administered on 03/21/21at 07:46; Start 03/14/21 at 09:00 Azithromycin 500 mg/Sodium Chloride 250 ml @ 250 mls/hr Q24H IV Last administered on 03/18/21at 20:00; Start 03/14/21 at 20:00; Stop 03/19/21 at 15:49; Status DC Ceftriaxone Sodium (Rocephin) 1 gm Q24H IVP Last administered on 03/15/21at 20:51; Start 03/14/21 at 21:00; Stop 03/16/21 at 10:43; Status DC Prochlorperazine Edisylate (Compazine) 10 mg PRN Q6HRS PRN IV NAUSEA/VOMITING- 2ND CHOICE; Start 03/14/21 at 09:00 Oxycodone/ Acetaminophen (Percocet 10/325) 1 tab PRN Q6HRS PRN PO PAIN Last administered on 03/21/21at 07:43; Start 03/14/21 at 20:45 Lactobacillus Rhamnosus (Culturelle) 1 cap BID PO Last administered on 03/21/21at 07:43; Start 03/15/21 at 21:00 Piperacillin Sod/ Tazobactam Sod (Zosyn Per Pharmacy) 1 each PRN DAILY PRN MC SEE COMMENTS; Start 03/16/21 at 10:45; Stop 03/19/21 at 10:15; Status DC Piperacillin Sod/ Tazobactam Sod (Zosyn Per Pharmacy) 1 each PRN DAILY PRN MC SEE COMMENTS; Start 03/16/21 at 10:45; Status UNV Piperacillin Sod/ Tazobactam Sod 2.25 gm/Sodium Chloride 50 ml @ 100 mls/hr Q6HRS IV Last administered on 03/19/21at 05:52; Start 03/16/21 at 12:00; Stop 03/19/21 at 10:18; Status DC Albuterol/ Ipratropium (Duoneb) 3 ml RTQID NEB Last administered on 03/21/21at 08:05; Start 03/16/21 at 12:00 Albuterol Sulfate (Ventolin Neb Soln) 2.5 mg PRN Q4HRS PRN NEB SHORTNESS OF BREATH; Start 03/16/21 at 11:00 Albuterol/ Ipratropium (Duoneb) 3 ml RTQID NEB ; Start 03/16/21 at 12:00; Stop 03/16/21 at 10:51; Status DC Budesonide (Pulmicort) 0.5 mg RTBID NEB Last administered on 03/21/21at 08:05; Start 03/16/21 at 11:00 Methylprednisolone Sodium Succinate (SOLU-Medrol 40MG VIAL) 40 mg 1X ONCE IV Last administered on 03/16/21at 12:10; Start 03/16/21 at 11:15; Stop 03/16/21 at 11:16; Status DC Magnesium Sulfate 50 ml @ 25 mls/hr 1X ONCE IV Last administered on 03/17/21at 11:47; Start 03/17/21 at 12:00; Stop 03/17/21 at 13:59; Status DC Zolpidem Tartrate (Ambien) 5 mg PRN QHS PRN PO INSOMNIA Last administered on 03/19/21at 21:21; Start 03/17/21 at 20:45 Magnesium Sulfate 50 ml @ 25 mls/hr 1X ONCE IV Last administered on 03/18/21at 21:30; Start 03/18/21 at 11:00; Stop 03/18/21 at 12:59; Status DC Potassium Chloride/Water 100 ml @ 100 mls/hr Q1H IV Last administered on 03/18/21at 21:09; Start 03/18/21 at 11:00; Stop 03/18/21 at 14:59; Status DC Sodium Phosphate 15 mmol/Sodium Chloride 105 ml @ 105 mls/hr 1X ONCE IV Last administered on 03/18/21at 11:57; Start 03/18/21 at 11:00; Stop 03/18/21 at 11:59; Status DC Potassium Chloride (Klor-Con) 30 meq 1X ONCE PO Last administered on 03/19/21at 10:10; Start 03/19/21 at 10:30; Stop 03/19/21 at 10:31; Status DC Amoxicillin/ Clavulanate Potassium (Augmentin 500/ 125mg) 1 tab BID PO Last administered on 03/21/21at 07:43; Start 03/19/21 at 21:00 Magnesium Sulfate 50 ml @ 25 mls/hr 1X ONCE IV Last administered on 03/19/21at 12:13; Start 03/19/21 at 12:00; Stop 03/19/21 at 13:59; Status DC Potassium Phosphate 13.6 mmol/Sodium Chloride 254.5333 ml @ 127.... Q2H IV Last administered on 03/19/21at 14:04; Start 03/19/21 at 12:00; Stop 03/19/21 at 15:59; Status DC Alprazolam (Xanax) 0.5 mg DAILY PRN PO ANXIETY / AGITATION Last administered on 03/21/21at 11:26; Start 03/20/21 at 22:00 Active Scripts Active Prednisone (Prednisone) 10 Mg Tablet 3 Tab PO DAILY 5 Days Duoneb 0.5-3(2.5) Mg/3 Ml (Albuterol/Ipratropium) 3 Ml Ampul.neb 3 Ml NEB Q4HRS 30 Days Budesonide 0.5 Mg/2 Ml Ampul.neb 0.5 Mg NEB RTBID 30 Days Amox Tr-K Clv 500-125 Mg Tab (Amoxicillin/Potassium Clav) 1 Each Tablet 1 Tab PO BID 5 Days Reported Percocet 10-325 Mg Tablet (Oxycodone/Acetaminophen) 1 Each Tablet 1 Tab PO PRN Q4-6HRS PRN MDD 6 Tablet(s) 5 Days Alprazolam 0.5 Mg Tablet 1 Tab PO DAILY PRN Gabapentin 600 Mg Tablet 600 Mg PO TID Vitals/I & O Vital Sign - Last 24 Hours 03/20/21 03/20/21 03/20/21 03/20/21 14:31 15:00 15:01 15:32 Temp 98.4 98.4 Pulse 96 Resp 17 17 B/P (MAP) 128/61 (83) Pulse Ox 97 97 O2 Delivery Nasal Cannula Nasal Cannula Nasal Cannula Nasal Cannula O2 Flow Rate 2.0 2.0 2.0 2.0 03/20/21 03/20/21 03/20/21 03/20/21 18:20 19:00 20:00 20:34 Temp 97.8 97.8 Pulse 101 Resp B/P (MAP) 138/68 (91) Pulse Ox 96 97 O2 Delivery Nasal Cannula Nasal Cannula Nasal Cannula Nasal Cannula O2 Flow Rate 2.0 2.0 2.0 2.0 03/20/21 03/20/21 03/21/21 03/21/21 21:04 23:39 03:11 07:00 Temp 98.2 97.6 97.7 98.2 97.6 97.7 Pulse 85 83 99 Resp B/P (MAP) 133/65 (87) 131/71 (91) 126/70 (88) Pulse Ox 98 94 96 O2 Delivery Nasal Cannula Nasal Cannula Nasal Cannula Nasal Cannula O2 Flow Rate 2.0 2.0 2.0 2.0 03/21/21 03/21/21 03/21/21 03/21/21 07:43 08:00 08:08 08:08 Resp 18 Pulse Ox 93 93 O2 Delivery Nasal Cannula Nasal Cannula Nasal Cannula Nasal Cannula O2 Flow Rate 2.0 2.0 2.0 2.0 03/21/21 03/21/21 08:13 10:49 Temp 98.9 98.9 Pulse 92 Resp 18 18 B/P (MAP) 121/59 (79) Pulse Ox 90 O2 Delivery Nasal Cannula Nasal Cannula O2 Flow Rate 2.0 2.0 Intake and Output 03/20/21 03/20/21 03/21/21 14:59 22:59 06:59 Intake Total 400 ml Output Total 101 ml 302 ml Balance 400 ml -101 ml -302 ml Justicifation of Admission Dx: Justifications for Admission: Justification of Admission Dx: Yes Acute Renal Failure: RF Can't Be Managed Outpt DANIE BARCLAY MD Mar 21, 2021 11:48
--- NOTE | 2021-03-21 12:18 | PDOC3 ---
Discharge Summary Date of Admission: Mar 13, 2021 Date of Discharge: Mar 21, 2021 Follow-Up: 1-2 days Admitting Diagnosis comment: History of Present Illness History of Present Illness Ms Noe is a 74-year-old -[place] female with a history of COPD and smoking, peripheral neuropathy, anxiety, congestive heart failure and anemia who presented with altered mental status and generalized weakness. Patient lives at home with her family. Patient's family called 911 due to patient's generalized weakness and altered mental status. Family states patient has been in bed all day, but had fallen out of the bed at one point a few days prior to presentation. Patient did not want to come to the ED. Upon EMS arrival patient was noted to have an oxygen saturation in the 80s. Creatinine greater than 4 on admit CK urine thousand. Family says that she just sits at home smokes and drinks Coca-Cola all day. In ER patient was switched over to 2 L nasal cannula and still remains 100% on room air. During my exam patient does have mild coug but her lungs are clear bilateral and her heart is regular. She lives at home with her mother and son. She denies contact with persons who have been ill. She does not have any pets. Denies recent traveling. Seen by Pulmonology and nephrology in consultation. Planned to have COVID 19 vaccination on 03/16 CONSULTS PULM MED PROGNOSIS POOR DUE TO SEVERE COPD D/C MEDS SEE MAR COMPLICATIONS WORSENING HYPOXIA DISCHARGE DX END STAGE COPD suspected, continues to smoke AMA Acute metabolic and infectious encephalopathy Atypical bilateral pneumonia, likely gram-negative organisms, possible aspiration pneumonia /Extensive bilateral airspace disease. Extensive bilateral airspace disease with improved aeration in the right upper lobe and worsening opacification in the right lower lobe. 8-20 CXR Elevated BNP - likely due to renal failure Acute electrolyte derangementhyponatremia, hypochloremia OBEY due to vasomotor nephropathy CR 4.8 ON ADMIT Severe symptomatic hyponatremia suggestive of low solute intake Elevated creatinine kinase due to rhabdomyolysis Bedbound status Severe protein malnutrition Elevated AST ALT ratio No hydronephrosis. Urinary bladder distention. Extensive bilateral airspace disease with improved aeration in the right upper lobe and worsening opacification in the right lower lobe. 8-20 Heparin for DVT prophylaxis N.p.o. if altered mental status Full code Discussed with PATRICK and ZEINAB Dispo inpatient management as above pulm consult REC D/C WITH HOSPICE CONSULT TODAY History of Present Illness History of Present Illness Ms Noe is a 74-year-old -[place]e female with a history of COPD and smoking, peripheral neuropathy, anxiety, congestive heart failure and anemia who presented with altered mental status and generalized weakness. Patient lives at home with her family. Patient's family called 911 due to patient's generalized weakness and altered mental status. Family states patient has been in bed all day, but had fallen out of the bed at one point a few days prior to presentation. Patient did not want to come to the ED. Upon EMS arrival patient was noted to have an oxygen saturation in the 80s. Creatinine greater than 4 on admit CK urine thousand. Family says that she just sits at home smokes and drinks Coca-Cola all day. In ER patient was switched over to 2 L nasal cannula and still remains 100% on room air. During my exam patient does have mild coug but her lungs are clear bilateral and her heart is regular. She lives at home with her mother and son. She denies contact with persons who have been ill. She does not have any pets. Denies recent traveling. Seen by Pulmonology and nephrology in consultation. Planned to have COVID 19 vaccination on 03/16 03/15: Cr improving She is on 3L NCO2 at rest today. No CP. Still dyspneic, but denies SOB. Developed some brownish sputum. Pulmonology change antibiotics to Zosyn. Creatinine has been improving. 03/17 Cr improving 0.7 antibiotics IV Zosyn. Acute metabolic and infectious encephalopathy Atypical bilateral pneumonia, likely gram-negative organisms, possible aspiration pneumonia /Extensive bilateral airspace disease. Elevated BNP - likely due to renal failure Acute electrolyte derangementhyponatremia, hypochloremia OBEY due to vasomotor nephropathy CR 4.8 ON ADMIT Severe symptomatic hyponatremia suggestive of low solute intake Elevated creatinine kinase due to rhabdomyolysis Bedbound status Severe protein malnutrition Elevated AST ALT ratio No hydronephrosis. Urinary bladder distention. ELEVATED [id number], CONT TO TREND POSSIBLE RHABDOMYOLYSIS D/W RN 03/18 Cr improving Still dyspneic, but denies SOB. change antibiotics to Zosyn. Acute metabolic and infectious encephalopathy Atypical bilateral pneumonia, likely gram-negative organisms, possible aspiration pneumonia /Extensive bilateral airspace disease. Elevated BNP - likely due to renal failure Acute electrolyte derangementhyponatremia, hypochloremia OBEY due to vasomotor nephropathy CR 4.8 ON ADMIT Severe symptomatic hyponatremia suggestive of low solute intake Elevated creatinine kinase due to rhabdomyolysis Bedbound status Severe protein malnutrition Elevated AST ALT ratio No hydronephrosis. Urinary bladder distention. ELEVATED [id number], CONT TO TREND POSSIBLE RHABDOMYOLYSIS D/W RN 03/19 Cr improving CR 2.9 REPLACED Still dyspneic, but denies SOB. change antibiotics to Zosyn. Acute metabolic and infectious encephalopathy Atypical bilateral pneumonia, likely gram-negative organisms, possible aspiration pneumonia /Extensive bilateral airspace disease. Elevated BNP - likely due to renal failure Acute electrolyte derangementhyponatremia, hypochloremia OBEY due to vasomotor nephropathy CR 4.8 ON ADMIT Severe symptomatic hyponatremia suggestive of low solute intake Elevated creatinine kinase due to rhabdomyolysis Bedbound status Severe protein malnutrition Elevated AST ALT ratio No hydronephrosis. Urinary bladder distention. ELEVATED [id number], CONT TO TREND POSSIBLE RHABDOMYOLYSIS D/W RN Antibiotics can be deescalated. Zosyn can be changed to p.o. Augmentin. * 2 weeks Discharge Recommendations * Residential Unit Discharge Recommendation - DME * 4 wheeled walker needed * in order to complete ADLs 03/20 Patchy bilateral consolidations, likely multifocal infection. DESAT TO 81% ON ROOM AIR BY JUST STANDING UP FROM BED 03-20 D/W RT increase in a small right lower lobe pleural effusion. 6 MIN WALK AT D/C NOW ON 2 LITERS NC Extensive bilateral airspace disease with improved aeration in the right upper lobe and worsening opacification in the right lower lobe. 03-19 CXR Cr improving CR 2.9 REPLACED K Still dyspneic, but denies SOB. change antibiotics to Zosyn. Acute metabolic and infectious encephalopathy Atypical bilateral pneumonia, likely gram-negative organisms, possible aspiration pneumonia /Extensive bilateral airspace disease. Elevated BNP - likely due to renal failure Acute electrolyte derangementhyponatremia, hypochloremia OBEY due to vasomotor nephropathy CR 4.8 ON ADMIT Severe symptomatic hyponatremia suggestive of low solute intake Elevated creatinine kinase due to rhabdomyolysis Bedbound status Severe protein malnutrition Elevated AST ALT ratio No hydronephrosis. Urinary bladder distention. ELEVATED [id number], CONT TO TREND POSSIBLE RHABDOMYOLYSIS D/W RN POSSIBLE component of aspiration as well due to encephalopathy. Diffuse pulmonary opacities, predominantly interstitial, likely due to a combination of chronic fibrosis and interstitial infiltrate, greatest at the lung bases. Some opacities have a slightly nodular morphology. Recommend short- term CT chest follow-up to document resolution. FROM 2-21 Antibiotics can be deescalated. Zosyn can be changed to p.o. Augmentin. * 2 weeks Discharge Recommendations FAMILY REFUSED AMA * Residential Unit Discharge Recommendation - DME * 4 wheeled walker needed * in order to complete ADLs 03/21 NEEDS HOME O2 2 LITER AT REST, 4 LITERS WITH ACTIVITY REC D/C WITH HOSPICE CONSULT TODAY FAMILY IS ADAMANT THAT SHE CAN GO HOME TODAY, REFUSING SNF AMA, HIGH RISK DISCHARGE , cONSIDER PALLIATIVE LONG-TERM VISIT DAVIDA, SEVERE PRB END STAGE COPD Patchy bilateral consolidations, likely multifocal infection. DESAT TO 81% ON ROOM AIR BY JUST STANDING UP FROM BED 8- D/W RT increase in a small right lower lobe pleural effusion. 6 MIN WALK AT D/C NOW ON 2 LITERS NC Extensive bilateral airspace disease with improved aeration in the right upper lobe and worsening opacification in the right lower lobe. 8-20 CXR Cr improving CR 2.9 REPLACED K Still dyspneic, but denies SOB. change antibiotics to Zosyn. Acute metabolic and infectious encephalopathy Atypical bilateral pneumonia, likely gram-negative organisms, possible aspiration pneumonia /Extensive bilateral airspace disease. Elevated BNP - likely due to renal failure Acute electrolyte derangementhyponatremia, hypochloremia OBEY due to vasomotor nephropathy CR 4.8 ON ADMIT Severe symptomatic hyponatremia suggestive of low solute intake Elevated creatinine kinase due to rhabdomyolysis Bedbound status Severe protein malnutrition Elevated AST ALT ratio No hydronephrosis. Urinary bladder distention. ELEVATED [id number], CONT TO TREND POSSIBLE RHABDOMYOLYSIS D/W RN POSSIBLE component of aspiration as well due to encephalopathy. Diffuse pulmonary opacities, predominantly interstitial, likely due to a combination of chronic fibrosis and interstitial infiltrate, greatest at the lung bases. Some opacities have a slightly nodular morphology. Recommend short- term CT chest follow-up to document resolution. FROM 2-21 Antibiotics can be deescalated. Zosyn can be changed to p.o. Augmentin. * 2 weeks Discharge Recommendations FAMILY REFUSED AMA WILL REC HOSPICE CONSULT [facility] D/W TAY RN * Residential Unit Discharge Recommendation - DME * 4 wheeled walker needed * in order to complete ADLs Vitals Vitals Vital Signs Date Time Temp Pulse Resp B/P (MAP) Pulse Ox O2 Delivery O2 Flow Rate FiO2 03/21/21 10:49 98.9 92 18 121/59 (79) 90 Nasal Cannula 2.0 98.9 Physical Exam General: Alert, Oriented X3, Cooperative, mild distress Heart: Regular rate, Normal S1, Normal S2 Lungs: Other (Decreased breath sounds bilaterally) Abdomen: Normal bowel sounds, Soft, No tenderness Extremities: No clubbing, No cyanosis Skin: No breakdown Labs LABS Signed PATIENT: JANIYA NOE ACCOUNT: [id number] : 1945 LOCATION: [address] [place] [address] AGE: 75 SEX: F EXAM STATUS: ADM IN ORD. PHYSICIAN: DANIE BARCLAY MD REASON: CALCIFIED MASS, NODULE PROCEDURE: CT CHEST ABDOMEN PELVIS WO CT CHEST_ABDOMEN_ AND PELVIS WITHOUT CONTRAST INDICATION: CALCIFIED MASS, NODULE COMPARISON: Chest radiograph 03/19/2021. CT chest 09/22/2019. TECHNIQUE: Multiple contiguous axial images were obtained throughout the chest, abdomen, and pelvis without the use of IV contrast. Axial images were reformatted into coronal and sagittal planes. One or more of the following dose reduction techniques were utilized: Automated exposure control (AEC), Adjustment of mA and/or kV according to patient size, Use of iterative reconstruction technique such as ASiR, CT scan done according to ALARA and image gently/image wisely. FINDINGS: The thyroid is symmetric. There is no axillary, mediastinal, or hilar adenopathy, although evaluation of the kitty is limited without IV contrast. The thoracic aorta diameter is normal. Cardiomegaly. No pericardial effusion. Coronary artery atherosclerotic disease. There is no pericardial effusion. The central airways are patent. Patchy bilateral consolidations. No pleural abnormality. Centrilobular emphysema. Mild nonspecific tunnel free fluid. Evaluation of solid abdominal viscera is limited without the use of IV contrast. However, the liver, gallbladder, spleen, pancreas, and adrenal glands are unremarkable. Right renal cyst, better characterized on recent renal ultrasound report. There is no significant mesenteric or retroperitoneal adenopathy identified, though evaluation is limited without intravenous contrast. Visualized portions of the bowel are grossly unremarkable. Diffuse aortoiliac atherosclerotic disease. The bladder and distal ureters are unremarkable. There is no significant pelvic ascites. No significant iliac or inguinal adenopathy is identified. Degenerative changes of the spine. IMPRESSION: 1. Patchy bilateral consolidations, likely multifocal infection. 2. Mild abdominal free fluid, nonspecific. 3. Stable right renal partially calcified cyst, seen better on recent renal ultr asound. Electronically signed by: Jordi Stanford MD (03/21/2021 9:43 AM) [facility] DICTATED and SIGNED BY: JORDI STANFORD MD DATE: 03/21/21 [id number] FINAL DIAGNOSIS Problems Medical Problems: (1) Acute renal failure Status: Acute (2) Hyponatremia Status: Acute (3) Pneumonia Status: Acute Brief Hospital Course Ms. Noe is a 75 old [sex] who presented with [ ] CONDITION AT DISCHARGE: Comment (GUARDED PROGNOSIS) Discharge Medications Current Medications Sodium Chloride 1,000 ml @ 1,000 mls/hr 1X ONCE IV Last administered on 03/13/21at 20:00; Start 03/13/21 at 20:15; Stop 03/13/21 at 21:14; Status DC Ceftriaxone Sodium (Rocephin) 1 gm 1X ONCE IVP Last administered on 03/13/21at 21:16; Start 03/13/21 at 20:30; Stop 03/13/21 at 20:31; Status DC Azithromycin 250 ml @ 250 mls/hr 1X ONCE IV Last administered on 03/13/21at 20:30; Start 03/13/21 at 20:30; Stop 03/13/21 at 21:29; Status DC Ondansetron HCl (Zofran) 4 mg PRN Q8HRS PRN IVP NAUSEA/VOMITING; Start 03/13/21 at 20:15; Stop 03/14/21 at 20:14; Status Cancel Acetaminophen (Tylenol) 650 mg PRN Q4HRS PRN PO FEVER > 100.3'F; Start 03/13/21 at 20:15; Stop 03/14/21 at 20:14; Status Cancel Sennosides (Senna) 17.2 mg PRN BID PRN PO CONSTIPATION; Start 03/14/21 at 09:00 Docusate Sodium (Colace) 100 mg PRN DAILY PRN PO HARD STOOLS Last administered on 03/18/21at 17:48; Start 03/14/21 at 09:00 Ondansetron HCl (Zofran) 4 mg PRN Q6HRS PRN IVP NAUSEA/VOMITING; Start 03/14/21 at 09:00 Dextrose (Dextrose 50%-Water Syringe) 12.5 gm PRN Q15MIN PRN IV SEE COMMENTS; Start 03/14/21 at 09:00 Sodium Chloride 1,000 ml @ 100 mls/hr Q10H IV Last administered on 03/16/21at 06:09; Start 03/14/21 at 09:00; Stop 03/16/21 at 10:48; Status DC Acetaminophen (Tylenol) 650 mg PRN Q4HRS PRN PO TEMP OVER 100.4F OR HEADACHE Last administered on 03/21/21at 11:26; Start 03/14/21 at 09:00 Heparin Sodium (Porcine) (Heparin Sodium) 5,000 unit Q12HR SQ Last administered on 03/21/21at 07:46; Start 03/14/21 at 09:00 Azithromycin 500 mg/Sodium Chloride 250 ml @ 250 mls/hr Q24H IV Last administered on 03/18/21at 20:00; Start 03/14/21 at 20:00; Stop 03/19/21 at 15:49; Status DC Ceftriaxone Sodium (Rocephin) 1 gm Q24H IVP Last administered on 03/15/21at 20:51; Start 03/14/21 at 21:00; Stop 03/16/21 at 10:43; Status DC Prochlorperazine Edisylate (Compazine) 10 mg PRN Q6HRS PRN IV NAUSEA/VOMITING- 2ND CHOICE; Start 03/14/21 at 09:00 Oxycodone/ Acetaminophen (Percocet 10/325) 1 tab PRN Q6HRS PRN PO PAIN Last administered on 03/21/21at 07:43; Start 03/14/21 at 20:45 Lactobacillus Rhamnosus (Culturelle) 1 cap BID PO Last administered on 03/21/21at 07:43; Start 03/15/21 at 21:00 Piperacillin Sod/ Tazobactam Sod (Zosyn Per Pharmacy) 1 each PRN DAILY PRN MC SEE COMMENTS; Start 03/16/21 at 10:45; Stop 03/19/21 at 10:15; Status DC Piperacillin Sod/ Tazobactam Sod (Zosyn Per Pharmacy) 1 each PRN DAILY PRN MC SEE COMMENTS; Start 03/16/21 at 10:45; Status UNV Piperacillin Sod/ Tazobactam Sod 2.25 gm/Sodium Chloride 50 ml @ 100 mls/hr Q6HRS IV Last administered on 03/19/21at 05:52; Start 03/16/21 at 12:00; Stop 03/19/21 at 10:18; Status DC Albuterol/ Ipratropium (Duoneb) 3 ml RTQID NEB Last administered on 03/21/21at 11:54; Start 03/16/21 at 12:00 Albuterol Sulfate (Ventolin Neb Soln) 2.5 mg PRN Q4HRS PRN NEB SHORTNESS OF BREATH; Start 03/16/21 at 11:00 Albuterol/ Ipratropium (Duoneb) 3 ml RTQID NEB ; Start 03/16/21 at 12:00; Stop 03/16/21 at 10:51; Status DC Budesonide (Pulmicort) 0.5 mg RTBID NEB Last administered on 03/21/21at 08:05; Start 03/16/21 at 11:00 Methylprednisolone Sodium Succinate (SOLU-Medrol 40MG VIAL) 40 mg 1X ONCE IV Last administered on 03/16/21at 12:10; Start 03/16/21 at 11:15; Stop 03/16/21 at 11:16; Status DC Magnesium Sulfate 50 ml @ 25 mls/hr 1X ONCE IV Last administered on 03/17/21at 11:47; Start 03/17/21 at 12:00; Stop 03/17/21 at 13:59; Status DC Zolpidem Tartrate (Ambien) 5 mg PRN QHS PRN PO INSOMNIA Last administered on 03/19/21at 21:21; Start 03/17/21 at 20:45 Magnesium Sulfate 50 ml @ 25 mls/hr 1X ONCE IV Last administered on 03/18/21at 21:30; Start 03/18/21 at 11:00; Stop 03/18/21 at 12:59; Status DC Potassium Chloride/Water 100 ml @ 100 mls/hr Q1H IV Last administered on 03/18/21at 21:09; Start 03/18/21 at 11:00; Stop 03/18/21 at 14:59; Status DC Sodium Phosphate 15 mmol/Sodium Chloride 105 ml @ 105 mls/hr 1X ONCE IV Last administered on 03/18/21at 11:57; Start 03/18/21 at 11:00; Stop 03/18/21 at 11:59; Status DC Potassium Chloride (Klor-Con) 30 meq 1X ONCE PO Last administered on 03/19/21at 10:10; Start 03/19/21 at 10:30; Stop 03/19/21 at 10:31; Status DC Amoxicillin/ Clavulanate Potassium (Augmentin 500/ 125mg) 1 tab BID PO Last administered on 03/21/21at 07:43; Start 03/19/21 at 21:00 Magnesium Sulfate 50 ml @ 25 mls/hr 1X ONCE IV Last administered on 03/19/21at 12:13; Start 03/19/21 at 12:00; Stop 03/19/21 at 13:59; Status DC Potassium Phosphate 13.6 mmol/Sodium Chloride 254.5333 ml @ 127.... Q2H IV Last administered on 03/19/21at 14:04; Start 03/19/21 at 12:00; Stop 03/19/21 at 15:59; Status DC Alprazolam (Xanax) 0.5 mg DAILY PRN PO ANXIETY / AGITATION Last administered on 03/21/21at 11:26; Start 03/20/21 at 22:00 Active Scripts Active Prednisone (Prednisone) 10 Mg Tablet 3 Tab PO DAILY 5 Days Duoneb 0.5-3(2.5) Mg/3 Ml (Albuterol/Ipratropium) 3 Ml Ampul.neb 3 Ml NEB Q4HRS 30 Days Budesonide 0.5 Mg/2 Ml Ampul.neb 0.5 Mg NEB RTBID 30 Days Amox Tr-K Clv 500-125 Mg Tab (Amoxicillin/Potassium Clav) 1 Each Tablet 1 Tab PO BID 5 Days Reported Percocet 10-325 Mg Tablet (Oxycodone/Acetaminophen) 1 Each Tablet 1 Tab PO PRN Q4-6HRS PRN MDD 6 Tablet(s) 5 Days Alprazolam 0.5 Mg Tablet 1 Tab PO DAILY PRN Gabapentin 600 Mg Tablet 600 Mg PO TID Vital Signs Vital Signs Date Time Temp Pulse Resp B/P (MAP) Pulse Ox O2 Delivery O2 Flow Rate FiO2 03/21/21 11:55 Nasal Cannula 2.0 03/21/21 10:49 98.9 92 18 121/59 (79) 90 98.9 Labs Laboratory Tests Test 03/20/21 05:50 03/21/21 05:00 Sodium Level 139 mmol/L (136-145) Potassium Level 3.6 mmol/L (3.5-5.1) Chloride Level 102 mmol/L (98-107) Carbon Dioxide Level 35 mmol/L (21-32) Anion Gap 2 (6-14) Blood Urea Nitrogen 4 mg/dL (7-20) Creatinine 0.6 mg/dL (0.6-1.0) Estimated GFR (Cockcroft-Gault) 117.9 BUN/Creatinine Ratio 7 (6-20) Glucose Level 64 mg/dL (70-99) Calcium Level 8.4 mg/dL (8.5-10.1) Total Bilirubin 0.2 mg/dL (0.2-1.0) Aspartate Amino Transf (AST/SGOT) 21 U/L (15-37) Alanine Aminotransferase (ALT/SGPT) 16 U/L (14-59) Alkaline Phosphatase 77 U/L (46-116) Creatine Kinase 49 U/L (26-192) Total Protein 5.5 g/dL (6.4-8.2) Albumin 1.9 g/dL (3.4-5.0) Albumin/Globulin Ratio 0.5 (1.0-1.7) White Blood Count 16.2 x10^3/uL (4.0-11.0) Red Blood Count 3.27 x10^6/uL (3.50-5.40) Hemoglobin 9.7 g/dL (12.0-15.5) Hematocrit 29.2 % (36.0-47.0) Mean Corpuscular Volume 89 fL (79-100) Mean Corpuscular Hemoglobin 30 pg (25-35) Mean Corpuscular Hemoglobin Concent 33 g/dL (31-37) Red Cell Distribution Width 15.1 % (11.5-14.5) Platelet Count 459 x10^3/uL (140-400) Neutrophils (%) (Auto) 84 % (31-73) Lymphocytes (%) (Auto) 11 % (24-48) Monocytes (%) (Auto) 3 % (0-9) Eosinophils (%) (Auto) 2 % (0-3) Basophils (%) (Auto) 0 % (0-3) Neutrophils # (Auto) 13.6 x10^3/uL (1.8-7.7) Lymphocytes # (Auto) 1.7 x10^3/uL (1.0-4.8) Monocytes # (Auto) 0.6 x10^3/uL (0.0-1.1) Eosinophils # (Auto) 0.3 x10^3/uL (0.0-0.7) Basophils # (Auto) 0.1 x10^3/uL (0.0-0.2) Laboratory Tests Test 03/21/21 05:00 White Blood Count 16.2 x10^3/uL (4.0-11.0) Red Blood Count 3.27 x10^6/uL (3.50-5.40) Hemoglobin 9.7 g/dL (12.0-15.5) Hematocrit 29.2 % (36.0-47.0) Mean Corpuscular Volume 89 fL (79-100) Mean Corpuscular Hemoglobin 30 pg (25-35) Mean Corpuscular Hemoglobin Concent 33 g/dL (31-37) Red Cell Distribution Width 15.1 % (11.5-14.5) Platelet Count 459 x10^3/uL (140-400) Neutrophils (%) (Auto) 84 % (31-73) Lymphocytes (%) (Auto) 11 % (24-48) Monocytes (%) (Auto) 3 % (0-9) Eosinophils (%) (Auto) 2 % (0-3) Basophils (%) (Auto) 0 % (0-3) Neutrophils # (Auto) 13.6 x10^3/uL (1.8-7.7) Lymphocytes # (Auto) 1.7 x10^3/uL (1.0-4.8) Monocytes # (Auto) 0.6 x10^3/uL (0.0-1.1) Eosinophils # (Auto) 0.3 x10^3/uL (0.0-0.7) Basophils # (Auto) 0.1 x10^3/uL (0.0-0.2) Allergies Allergies Coded Allergies Type Severity Reaction Last Updated Verified No Known Drug Allergies 03/13/21 No Disposition/Orders: D/C to Home w/ Hospice Justicifation of Admission Dx: Justifications for Admission: Justification of Admission Dx: Yes Acute Renal Failure: RF Can't Be Managed Outpt DANEI BARCLAY MD Mar 21, 2021 12:18
[2021-03-21] MEDS ORDERED: LACT1CAP19 PO (12:21)
[2021-03-21] MEDS ORDERED: DOCU100C28 PO (12:21)
[2021-03-21] MEDS ORDERED: AMOX1TAB10 PO (12:21)
[2021-03-21] MEDS ORDERED: ACET325T21 PO (12:21)
--- NOTE | 2021-03-21 12:23 | SNU/HH DC ---
DISCHARGE ORDERS DISCHARGE INFORMATION: DISCHARGE DATE: Mar 21, 2021 FINAL DIAGNOSIS Problems Medical Problems: (1) Acute renal failure Status: Acute (2) Hyponatremia Status: Acute (3) Pneumonia Status: Acute CONDITION ON DISCHARGE: Guarded HALFWAY: SNF STAY <30 DAYS: No HOSPICE: HOSPICE: Yes HOSPICE EVAL & TREAT: Yes LTAC: ADMIT TO LTAC: No POST DISCHARGE ORDERS: ACTIVITY ORDERS: Activity as tolerated WEIGHT BEARING STATUS: Full weight bearing DIET AFTER DISCHARGE: Cardiac CHECKS AFTER DISCHARGE: CHECKS AFTER DISCHARGE: Check blood press - daily, Check your Temp as needed FOLLOW-UP: PHYSICIAN FOLLOW-UP: PCP THIS WEEK, MEET WITH HOSPICE TODAY FOR DISCUSSION TREATMENT/EQUIPMENT ORDERS: ADAPTIVE EQUIPMENT NEEDED: Front wheeled walker, Long handled sponge, Raised toilet seat w/arms RESPIRATORY EQUIPMENT NEEDED: Oxygen, Nebulizer Physical Therapy For: Evalulation/Treatment Occupational Therapy For: Evaluation/Treatment Speech Language Pathology For: Evaluation/Treatment DISCHARGE MEDICATIONS: Home Meds Active Scripts Lactobacillus Rhamnosus Gg (CULTURELLE) 1 Each Cap.sprink, 1 CAP PO BID for SUPPLEMENT for 30 Days, #60 CAP Prov:DANIE BARCLAY MD 03/21/21 Docusate Sodium (DOCUSATE SODIUM) 100 Mg Capsule, 100 MG PO PRN DAILY PRN for HARD STOOLS for 30 Days, #60 CAP Prov:DANIE BARCLAY MD 03/21/21 Acetaminophen (ACETAMINOPHEN) 325 Mg Tablet, 650 MG PO PRN Q4HRS PRN for TEMP OVER 100.4F OR HEADACHE for 14 Days, #60 TAB Prov:DANIE BARCLAY MD 03/21/21 Amoxicillin/Potassium Clav (AMOX TR-K CLV 500-125 MG TAB) 1 Each Tablet, 1 TAB PO BID for PNEUMONIA for 10 Days, #20 TAB Prov:DANIE BARCLAY MD 03/21/21 Ipratropium/Albuterol Sulfate (DUONEB 0.5-3(2.5) MG/3 ML) 3 Ml Ampul.neb, 3 ML NEB Q4HRS for COPD for 30 Days, #180 EACH 2 Refills Prov:RACHAEL CAMARGO MD 09/18/19 Budesonide (BUDESONIDE) 0.5 Mg/2 Ml Ampul.neb, 0.5 MG NEB RTBID for COPD for 30 Days, #60 EACH 2 Refills Prov:RACHAEL CAMARGO MD 09/18/19 Reported Medications Oxycodone/Apap 10-325 (PERCOCET 10-325 MG TABLET ) 1 Each Tablet, 1 TAB PO PRN Q4-6HRS PRN for PAIN MDD 6 Tablet(s) for 5 Days, #30 TAB 0 Refills 09/18/19 Alprazolam (ALPRAZOLAM) 0.5 Mg Tablet, 1 TAB PO DAILY PRN for ANXIETY / AGITATION, #30 TAB 09/18/19 Discontinued Reported Medications Gabapentin (GABAPENTIN) 600 Mg Tablet, 600 MG PO TID for NEUROGENIC PAIN, TAB 09/18/19 Discontinued Scripts Prednisone (PREDNISONE ) 10 Mg Tablet, 3 TAB PO DAILY for COPD for 5 Days, #15 TAB 0 Refills Prov:RACHAEL CAMARGO MD 09/18/19 Amoxicillin/Potassium Clav (AMOX TR-K CLV 500-125 MG TAB) 1 Each Tablet, 1 TAB PO BID for COPD for 5 Days, #10 TAB Prov:RACHAEL CAMARGO MD 09/18/19 DANIE BARCLAY MD Mar 21, 2021 12:23
--- NOTE | 2021-03-21 15:15 | NUR ---
Pt discharged to home with daughter. Oxygen supplied by [employer]. Tank delivered to the pts room. Instructions given to daughter and son-in-law. They both verbalized understanding. Discharge instructions reviewed as well. Questions answered. Pt transported to private vehicle by wheelchair.
== END 2021-03-21 15:15 | disposition hospice, home (50) | DRG 177 ==
LOC: ER 18:36 → 5 SOUTH 20:35
PROVIDERS: ADMIT Internal Medicine; ATTEND Internal Medicine
DX: J69.0 Pneumonitis due to inhalation of food and vomit (principal); E43 Unspecified severe protein-calorie malnutrition; N17.0 Acute kidney failure with tubular necrosis; J96.01 Acute respiratory failure with hypoxia; G93.41 Metabolic encephalopathy; E87.1 Hypo-osmolality and hyponatremia; I50.32 Chronic diastolic (congestive) heart failure; M62.82 Rhabdomyolysis; Z68.1 Body mass index [BMI] 19.9 or less, adult; E87.8 Other disorders of electrolyte and fluid balance, not elsewhere classified; F17.200 Nicotine dependence, unspecified, uncomplicated; J15.6 Pneumonia due to other Gram-negative bacteria; J43.9 Emphysema, unspecified; N32.89 Other specified disorders of bladder; Z20.822 Contact with and (suspected) exposure to COVID-19; F41.9 Anxiety disorder, unspecified; M19.90 Unspecified osteoarthritis, unspecified site; R33.9 Retention of urine, unspecified; Z82.49 Family history of ischemic heart disease and other diseases of the circulatory system; Z79.899 Other long term (current) drug therapy; Z74.01 Bed confinement status
CPT/HCPCS: 36415; 71045; 71250; 74176; 76770; 80048; 80053; 80307; 80329; 81001; 82306; 82550; 82570; 82607; 83605; 83735; 83880; 83930; 83935; 84100; 84145; 84295; 84300; 84439; 84443; 84484; 85007; 85025; 87040; 87426; 87449; 87641; 93005; 94618; 94640; 94760; 96365; 96375; J0456; J0696; J1644; J2543; J2920; J3475; J3480; J3490; J7030; J7050; U0003; U0005; 92526-GN; 92610-GN; 97116-GP; 97535-GO; 99285-25; G0378; G0480; J7626